=== PATIENT | male | born 1990 | race Caucasian/White ===

== ENCOUNTER 2017-12-31 15:04 | Outpatient (REF) | payer MEDICAID, SELFPAY ==
[2018-01-03 11:15] LABS: HIV-1/2 Ag & Ab Screen Negative (NEGAT)
[2018-01-03 12:12] LABS: Syphilis Serology (RPR) Negative (Negative)
[2018-01-03 15:16] LABS: Chlamydia Result Negative; GC Result Negative
== END 2017-12-31 15:24 ==
LOC: NCHCN 15:04
PROVIDERS: PCP Specialist/Technologist Athletic Trainer; Visit Provider Specialist/Technologist Athletic Trainer
DX: Z11.3 Encounter for screening for infections with a predominantly sexual mode of transmission (principal); Z11.4 Encounter for screening for human immunodeficiency virus [HIV]
CPT/HCPCS: 87389; 87491; 87591; 86592

== ENCOUNTER 2018-06-13 10:56 | Emergency (ER) | payer MEDICAID, SELFPAY ==
[2018-06-13 11:11] VITALS: BP 119/75; PULSE 72; RESP 16; TEMP 36.7; O2SAT 97
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
[2018-06-13] MEDS: Lactated Ringers 1,000 ML 1000 ML IV (12:05)
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
[2018-06-13 13:30] VITALS: BP 106/68; PULSE 60; RESP 16; TEMP 36.7; O2SAT 99
[2018-06-13 15:19] VITALS: RESP 16
== END 2018-06-13 13:34 | disposition home or self-care (01) ==
PROVIDERS: Emergency Provider Student in an Organized Health Care Education/Training Program; PCP Nurse Practitioner Family
DX: R07.9 Chest pain, unspecified (principal); R09.81 Nasal congestion
CPT/HCPCS: 36415; 93005; 96360; 99284; 71046; 71120; 93010

== ENCOUNTER 2018-10-31 00:58 | Outpatient (CLI) | payer MEDICAID, SELFPAY ==
--- NOTE | 2018-10-31 14:20 | DI.RAD_ITS ---
SYMPTOM/DIAGNOSIS: LOW BACK PAIN, M54.5 LUMBOSACRAL SPINE: Five views were obtained. The SI joints and visualized portions of the hip joints are unremarkable. There is no evidence of spondylolysis or spondylolisthesis. There are minimal hypertrophic degenerative changes of the facet joints throughout the lumbar region. No evidence of fracture. Intervertebral disc spaces are fairly well maintained. IMPRESSION: Minimal facet degenerative spurring, particularly at L 4-5 and L 5-S 1.
== END 2018-10-31 01:18 ==
PROVIDERS: PCP Nurse Practitioner Family; Visit Provider Nurse Practitioner Family
DX: M54.5 Low back pain (principal); M47.817 Spondylosis without myelopathy or radiculopathy, lumbosacral region
CPT/HCPCS: 72110

== ENCOUNTER 2019-11-06 14:51 | Outpatient (CLI) | payer MEDICAID, SELFPAY ==
--- NOTE | 2019-11-06 | DI.US_ITS ---
EXAM: US SCROTUM CLINICAL HISTORY: TESTICULAR PAIN LT, N50.812,PAIN DEVELOPING 5 DAYS AGO, PROGRESSIVELY WORSE TECHNIQUE: Ultrasound performed using standard protocol. COMPARISON: US SCROTUM US from 05/27/2015 FINDINGS: Scrotal ultrasound was performed according to the usual protocol. The testes show normal echotexture and normal vascular flow bilaterally with no evidence of mass. There is a 4.5 cm in greatest diameter left hydrocele. Right epididymis appears normal. Left epididymis is enlarged and shows increased vascularity compare d to the right, findings are suggestive of epididymitis. IMPRESSION: Findings suggestive of left epididymitis. No evidence of intra testicular process. DATA REPOSITORY:
== END 2019-11-06 15:11 ==
PROVIDERS: PCP Nurse Practitioner Family; Visit Provider Nurse Practitioner Family
DX: N45.1 Epididymitis (principal); N50.812 Left testicular pain
CPT/HCPCS: 76870

== ENCOUNTER 2020-05-13 04:39 | Emergency (ER) | payer MEDICAID, SELFPAY ==
[2020-05-13 04:47] VITALS: BP 149/89; PULSE 60; RESP 16; TEMP 36.1; O2SAT 97
[2020-05-13] MEDS: Meclizine 25 MG TAB PO (05:37)
[2020-05-13] MEDS: ACETAMINOPHEN 1,000 MG/100 ML BTL 400 MG IVPB (05:37)
[2020-05-13] MEDS: Ketorolac 30 MG/ML VIAL IVP (05:38)
[2020-05-13] MEDS: Prochlorperazine 10 MG/2 ML VIAL IVP (05:38)
[2020-05-13] MEDS: methylPREDNISolone SUCC 125 MG VIAL IVP (05:39)
[2020-05-13] MEDS: diphenhydrAMINE 50 MG/ML VIAL 25 MG IVP (05:39)
[2020-05-13] MEDS: Normal Saline 1,000 ML 1000 ML IV (05:39)
--- NOTE | 2020-05-13 05:54 | W.ED.GENAD ---
Discharge Plan Disposition Patient Disposition: HOME Condition: Good Discharge Details Clinical Impression: Vertigo, Migraines Primary Care Provider: Anum Perez ED Provider: Eze Krishnan Home Meds and New Rx's Prescriptions: New meclizine 25 mg tablet 25 mg PO TID Qty: 10 RF: 0 Continued magnesium oxide 400 MG tablet 400 mg PO DAILY RF: 0 hydrocortisone [Anti-Itch (HC)] 1 % cream 1 applic topical DAILY PRNRF: 0 naproxen 500 mg tablet 500 mg PO BID RF: 0 albuterol sulfate 8.5 GM HFA aerosol inhaler 8.5 g Inhalation Q4H PRN PRNRF: 0 Discharge Instructions Instructions: Vertigo (ED), Acute Headache (ED) Additional Instructions: At this time I suspect her symptoms were from a migraine and vertigo. Please take the meclizine as needed for your dizziness. Please drink plenty of fluids and get plenty of rest today. If you notice any worsening of your symptoms, or any new symptoms such as vomiting, diarrhea, fever, chills, shortness of breath, chest pain, numbness, weakness, or fainting , please return immediately to the emergency department for reevaluation. Please follow up with your primary care provider as soon as possible for reassessment and reevaluation. As always, it was a pleasure participating in your medical care today. Stand Alone Forms: Work Release Referrals: Anum Perez [Primary Care Provider] - Medical Decision Making 30-year-old male with past medical history of cognitive developmental delay, chronic migraines, oppositional defiant disorder, asthma, presents today for evaluation of headache and dizziness. Patient states that when he woke up early this morning for work at around 2:58 AM he noticed some mild room spinning dizziness, mild headache which she describes as pain all over, the mild feeling of unwellness. He denies thunderclap headache but does feel that the headache came on rather briskly. He has a history of headaches migraines and vertigo, he states that this feels similar severity in nature to his headaches, but the dizziness he is also experiencing feels similar to his previous vertigo. He denies any fever or chills. He denies any significant posterior neck pain. He denies any recent traumas. He has had a brain MRI recently in 2018 which was unremarkable. He has no other complaints at this time. No other modifying factors. He denies any tinnitus, or visual changes. His headache is made worse with loud high-pitched noises. Physical exam demonstrates no meningeal mass, normal neurologic exam with no deficits. Head impulse test did slightly worsen his dizziness, he does appear to be a small amount of horizontal nystagmus but no evidence of vertical or rotatory nystagmus at all. Symptoms at this time appear inconsistent with intercranial aneurysm or bleed. Instead they appear more concerning and consistent with complex migraine and vertigo. We will gently rehydrate, give migraine cocktail meclizine, monitor closely and reassess. Symptoms at this time are also inconsistent with cerebellar stroke based on clinical impression, hints exam and physical examination. 6:20 AM Laboratory work-up is returned and is normal. Patient has complete resolution of his symptoms after meclizine he had migraine cocktail. Patient feels well and would like to go home. Repeat neurologic exam is normal and unremarkable. Symptoms are inconsistent at this time with cerebellar stroke, meningitis, or acute life-threatening intracranial etiology. Symptoms appear clinically consistent with migraine and vertigo. 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 Patient will be discharged. Discussed red flags for which to return. I have extensively reviewed the treatment plan and discharge instructions with the patient. I have addressed all patient concerns at this time. The patient was made aware of what symptoms to monitor for that would warrant a return to the emergency department. Discussed the plan with the patient, they demonstrate verbal understanding and agreement with our assessment and plan at this time. The documentation in this chart was dictated using [employer] ([employer] dictation software. Please excuse any dictation errors. HPI General Date/Time Provider Initiated Documentation: 05/13/20 04:41. HPI Narrative: 30-year-old male with past medical history of cognitive developmental delay, chronic migraines, oppositional defiant disorder, asthma, presents today for evaluation of headache and dizziness. Patient states that when he woke up early this morning for work at around 2:58 AM he noticed some mild room spinning dizziness, mild headache which she describes as pain all over, the mild feeling of unwellness. He denies thunderclap headache but does feel that the headache came on rather briskly. He has a history of headaches migraines and vertigo, he states that this feels similar severity in nature to his headaches, but the dizziness he is also experiencing feels similar to his previous vertigo. He denies any fever or chills. He denies any significant posterior neck pain. He denies any recent traumas. He has had a brain MRI recently in 2018 which was unremarkable. He has no other complaints at this time. No other modifying factors. He denies any tinnitus, or visual changes. His headache is made worse with loud high-pitched noises. Related Data Home Medications Medication Instructions Recorded Confirmed albuterol sulfate 8.5 g INHALATION Q4H PRN PRN 02/22/14 05/13/20 magnesium oxide 400 mg PO DAILY 05/10/17 05/13/20 hydrocortisone 1 % topical cream 1 applic TOPICAL DAILY PRN g 11/23/19 05/13/20 naproxen 500 mg tablet 500 mg PO BID 11/23/19 05/13/20 meclizine 25 mg PO TID #10 tab 05/13/20 Previous Rx's Medication Instructions Recorded meclizine 25 mg PO TID #10 tab 05/13/20 Allergies Allergy/AdvReac Type Severity Reaction Status Date / Time tree and shrub pollen Allergy Intermediate HEADACHE Unverified 05/13/20 04:52 General Stated Complaint: Dizzy/Sync QUENTIN: 3 Review of Systems All systems reviewed & are unremarkable except as noted in HPI and below PFS Medical History (Updated 05/13/20 @ 06:10 by Eze Krishnan DO) Allergic rhinitis Asthma, mild intermittent, well-controlled Back pain Chronic headaches Closed lumbar vertebral fracture Cognitive developmental delay Heart burn Hemorrhoids Learning disability Mood disorder Olfactory hallucinations Oppositional disorder Social History Smoking/Tobacco Use Status: Never Smoking risk assessment performed?: Yes Alcohol Intake: never Drug use: Never Substance use type: does not use Do you feel safe at home: Yes Do you feel safe in your relationship?: Yes Exam Narrative Exam Narrative: 1.Const: Well-nourished, Well-developed, appearing stated age 2.Eyes: PERRL, no conjunctival injection, and symmetrical lids. 3.ENT: Atraumatic external nose and ears. Moist MM. Neck: Symmetric, trachea midline, No thyromegaly. Patient demonstrates good movement of cervical neck. There is no nuchal rigidity, no nuchal tenderness. Patient is able to flex the neck without any difficulty or significant pain. Negative Kernig's and Brudzinski sign. 4.CVS: +S1/S2, No murmurs or gallops. Peripheral pulses 2+ and equal in all extremities. Brisk capillary refill in all extremities. 5.RESP: Unlabored respiratory effort. Clear to auscultation bilaterally. No wheezes rales or rhonchi 6.GI: Soft, Nontender/Nondistended, No hepatosplenomegaly. No guarding or rebound. 7.MSK: Normocephalic/Atraumatic, Extremities w/o deformity or ttp No cyanosis or clubbing, Normal movement of all extremities 8.Skin: Warm, Dry. No rashes or lesions. 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 Sensation grossly intact, no focal neurologic deficits. All 6 cardinal planes of vision are fully intact. No evidence of rotatory or vertical nystagmus. The patient demonstrated a normal [id number], good dexterity. There was no evidence of dysdiadochokinesia. Patient was able to ambulate without difficulty. There was no wide-based gait. Romberg testing was normal. Xjnf-fh-[id number] testing was normal. Sensation was intact bilaterally as well as muscle strength bilaterally for all extremities. Patient was able to verbalize butter cup with no slurring, or miss pronunciation. Cerebellar function testing is normal. The patient demonstrates a normal hints exam with no findings concerning for a central event. No vertical nystagmus. The head impulse test is negative for any significant central abnormality. Normal test of skew. No suggestion of a central cerebellar event. 10.Psych: (AAO) x3. Appropriate mood and affect Course Vital Signs Vital signs: Vital Signs Temperature 36.1 C L 05/13/20 04:47 Pulse 60 05/13/20 04:47 Respiratory Rate 16 05/13/20 04:47 Blood Pressure 149/89 H 05/13/20 04:47 Pulse Oximetry 97 05/13/20 04:47 Temperature 36.1 C L 05/13/20 04:47 Temperature Source Tympanic 05/13/20 04:47 Pulse 60 05/13/20 04:47 Respiratory Rate 16 05/13/20 04:47 Blood Pressure 149/89 H 05/13/20 04:47 Pulse Oximetry 97 03/01/21 04:47 Pain Level 4 05/13/20 05:38
[2020-05-13 05:58] LABS: Abs Immature Grans 0.05 10^3/uL (0.0-0.06); Absolute Basophil Count 0.08 10^3/uL (0.0-0.2); Absolute Eosinophil Count 0.25 10^3/uL (0.0-0.7); Absolute Lymphocyte Count 3.73 10^3/uL (1.2-3.4); Absolute Monocyte Count 0.73 10^3/uL (0.1-0.8); Absolute Neutrophil Count 4.32 10^3/uL (1.2-6.7); Basophils % 0.9; Eosinophils % 2.7; HCT 44.6 % (40.0-50.0); HGB 14.8 g/dL (13.5-17.5); Immature Grans % 0.5; Lymphocytes % 40.7; MCH 29.2 pg (27.0-33.0); MCHC 33.2 % (32.0-36.0); MPV 9.5 fL (8.0-11.0); Neutrophils % 47.2; Nucleated RBC 0 %; Platelet Count 322 10^3/uL (130-400); RBC 5.07 10^6/uL (4.36-5.78); RDW 12.3 % (11.8-14.1); RDW-SD 39.6 fL; WBC 9.16 10^3/uL (4.4-10.8)
[2020-05-13 06:14] VITALS: RESP 18
[2020-05-13 06:15] LABS: ALT 48 U/L (16-63); AST 17 U/L (15-37); Albumin 3.9 g/dL (3.4-5.0); Alkaline Phosphatase 98 U/L (46-116); Anion Gap 7.4 mmol/L (3-11); BUN 13 mg/dL (7-18); Bilirubin, Total 0.4 mg/dL (0.2-1.0); CO2 27.6 mmol/L (21.0-32.0); CREATININE 0.9 mg/dL (0.70-1.30); Calcium 8.9 mg/dL (8.5-10.1); Chloride 103 mmol/L (98-107); Glucose 132 mg/dL (74-106); Potassium 3.9 mmol/L (3.5-5.1); Sodium 138 mmol/L (136-145); Total Protein 7.1 g/dL (6.4-8.2)
[2020-05-13 06:21] VITALS: BP 119/49; PULSE 68; RESP 18; TEMP 36.6; O2SAT 97
== END 2020-05-13 06:30 | disposition home or self-care (01) ==
PROVIDERS: Emergency Provider Student in an Organized Health Care Education/Training Program; PCP Nurse Practitioner Family
DX: R42 Dizziness and giddiness (principal); G43.809 Other migraine, not intractable, without status migrainosus
CPT/HCPCS: 36415; 80053; 96361; 96365; 96375; 99284; 85025; J0131; J0780; J1200; J1885; J2930

== ENCOUNTER 2021-08-26 16:04 | Outpatient (REF) | payer MEDICAID, SELFPAY ==
[2021-08-26 21:02] LABS: Uric Acid 5.7 mg/dL (3.5-7.2)
[2021-08-26 21:03] LABS: C-Reactive Protein < 0.05 mg/dL (0.0-0.3); HCT 44.6 % (40.0-50.0); HGB 14.8 g/dL (13.5-17.5); MCH 28.9 pg (27.0-33.0); MCHC 33.2 % (32.0-36.0); MCV 87 fL (80-95); MPV 10.1 fL (8.0-11.0); Platelet Count 333 10^3/uL (130-400); RBC 5.12 10^6/uL (4.36-5.78); RDW 12.4 % (11.8-14.1); WBC 9.57 10^3/uL (4.4-10.8)
[2021-08-26 21:08] LABS: ESR 2 mm/hr (0-15)
[2021-08-27 16:47] LABS: Rheumatoid Factor <8.6 IU/mL (<12.0)
[2021-08-28 09:26] LABS: Cyclic Citrullinated Peptide <2.5 U/mL (<5.0)
== END 2021-08-26 16:05 | disposition home or self-care (01) ==
LOC: NCHCN 16:04
PROVIDERS: PCP Nurse Practitioner Family; Visit Provider Nurse Practitioner Family
DX: M25.59 Pain in other specified joint (principal)
CPT/HCPCS: 85027; 85652; 86200; 84550; 86140; 86431

== ENCOUNTER 2021-09-10 14:06 | Outpatient (CLI) | payer MEDICAID, SELFPAY ==
--- NOTE | 2021-09-10 14:02 | DI.RAD_ITS ---
Exam(s) XR WRIST LT COMPLETE EXAM: XR WRIST LT COMPLETE CLINICAL HISTORY: left wrist pain TECHNIQUE: COMPARISON: No exams were available for comparison FINDINGS: Three views were obtained. Carpal alignment appears within normal limits. No bony or soft tissue ab normality seen. IMPRESSION: RADIATION DOSE DELIVERED: Total DLP
== END 2021-09-10 14:07 | disposition home or self-care (01) ==
LOC: DIORS 14:07
PROVIDERS: PCP Nurse Practitioner Family; Referring Provider Nurse Practitioner Family; Visit Provider Physician Assistant
DX: M25.532 Pain in left wrist (principal)
CPT/HCPCS: 73110

== ENCOUNTER → 2021-10-07 02:36 | Outpatient (CLI) | payer MEDICAID, SELFPAY ==
--- OUTSIDE RECORDS SUMMARY | 2021-10-02 00:43 | XMS_ITS | Encounter Summary ---
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 deviations of ?? 1. TOWRE raw score SS % ile Sight Word Efficiency 69 75 5 Phonemic Decoding Efficiency 41 84 14 Total Efficiency 159 75 5 raw score Z score %ile BNT 54 -.31 39 D-KEFS raw score ss %ile TRAIL MAKING Visual Scanning 25 8 25 Number Sequencing 45 6 25 Letter Sequencing 27 11 63 Number-Letter Switching 114 4 2 Motor Speed 26 11 63 VERBAL FLUENCY Letter Fluency 43 13 84 Category Fluency 40 11 63 Category Switching 12 9 37 Category Switching Accuracy 10 9 37 CPT raw score Z-score %ile K hit rate .73 -4.17 <1 Commission 11.00 -.98 18 Average reaction time (RT) 420.53 .08 53 Variability of RT 115.31 -1.34 10 AK hit rate .64 -6.60 <1 Commission 43.00 -2.36 1 Average reaction time (RT) 360.59 -.75 23 Variability of RT 158.35 -1.66 5 WCST raw score SS %ile Categories 6 - >16 Error percent 13 117 87 Perseverative error percent 6 125 95 Loss of set 2 - CVLT-II raw score Z-score %ile Total Acquisition 28 T = 23 <1 Trial 1 5 -1.00 16 Trial 2 5 - - Trial 3 7 - - Trial 4 4 - - Trial 5 7 -3.00 <1 Primacy 36 1.00 84 Middle 29 -2.50 1 Recency 36 2.00 98 Semantic Clustering .10 -.50 32 Serial Clustering .10 -.50 32 Distractor List 5 -1.00 16 Short Delay Free Recall 3 -3.50 <1 Short Delay Cued Recall 5 -4.00 <1 Long Delay Free Recall 3 -3.50 <1 Long Delay Cued Recall 3 -4.00 <1 Recognition 6 -5.00 <1 Discriminability .20 -5.00 <1 Note: CVLT-C Z-scores of +/-1.5 or less are considered clinically significant WMS-IV Logical Memory raw score T-score %ile Immediate 28 11 63 Delayed 23 10 50 Recognition 25 - 26-50 TOMAL raw score ss %ile Memory for Location 3 3 1 Abstract Visual Memory 18 7 16 raw score Z-score %ile GROOVED PEGBOARD Dominant hand 90 -2.30 1 Non-Dominant hand 93 -2.03 2 FINGER TAPPING Dominant hand 43.10 -1.31 10 Non-Dominant hand 39.40 -1.24 12 VMI-5 raw score SS %ile VMI 22 74 5 Visual 26 85 14 BDI Raw score T score Description Total 12 - Minimal MASC Raw score T score Description Total 41 52 Within normal limits Physical Symptoms Total 10 50 Within normal limits Tense/Restless 6 52 Within normal limits Somatic/Autonomic 4 48 Within normal limits Harm Avoidance Total 22 63 Elevated Perfectionism 10 60 Within normal limits Anxious Coping 12 62 Elevated Social Anxiety Total 5 45 Within normal limits Humiliation/Rejection 3 46 Within normal limits Performance Fears 2 43 Within normal limits Separation/Panic 4 50 Within normal limits Anxiety Disorder Index 15 59 Within normal limits ABAS-II SS %tile General Adaptive Composite - - Conceptual 61 <1 Social - - Practical 61 <1 ABAS-II raw scores scaled score %tile Communication 42 3 1 Community Use 36 4 2 Functional Academics 42 3 1 Home Living 29 3 1 Health and Safety 36 3 1 Leisure 27 2 <1 Self-Care 50 3 1 Self-Direction 27 3 1 Social - - - documented in this encounter Plan of Treatment Not on filedocumented as of this encounter Visit Diagnoses Diagnosis Post traumatic stress disorder - Primary Posttraumatic stress disorder documented in this encounter Care Teams Dock Associate Relationship Specialty Start Date End Date Bharath Manzano MD PCP - General 02/04/10 02/05/[address] [address] documented as of this encounter
--- OUTSIDE RECORDS SUMMARY | 2021-10-02 00:43 | XMS_ITS | Clinical Summary ---
:1990 Author Organization [facility] Address [address] [place] [address] Care Team Providers Name Role Phone Unavailable Primary Care Provider Unavailable Encounters Date Type Specialty Care Team Description 08/27/2021 Lab Requisition Clinical Laboratory Outr Resulting Lab , Provider from Last 3 Months Immunizations Name Administration Dates Next Due Covid-19 mRNA Vaccine (Ooshot COVID-19) PF 0.3 ml IM 021, 07/25/2020 (12 yrs+) Social History Tobacco Use Types Packs/Day Years Used Date Never Assessed Sex Assigned at Date Recorded Not on file Plan of Treatment Health Maintenance Due Date Last Done Comments Hepatitis C Screen 1990 COVID-19 Vaccine Completed 08/15/2020, 07/25/2020 Procedures Procedure Name Priority Date/Time Associated Diagnosis Comme nts RHEUMATOID FACTOR Routine 08/26/2021 15:55 Result s for this EDT procedure are i n the results section. CCP ANTIBODIES Routine 08/26/2021 15:55 Results f or this EDT procedure are i n the results section. from Last 3 Months Results CCP ANTIBODIES (08/26/2021 15:55 EDT) Pathologist Sig nature CCP Antibodies <2.5 <5.0 U/mL [facility] Specimen Blood - Venous blood (substance) Performing Organization Address [facility]/ZIP Code Phon e Number [facility] [address] [place] [address] SERVICES RHEUMATOID FACTOR (08/26/2021 15:55 EDT) Pathologist Sig nature Rheumatoid Factor <8.6 <12.0 IU/mL [facility] Specimen Blood - Venous blood (substance) Performing Organization Address [facility] Phon e Number [facility] [address] [place] [address] SERVICES from Last 3 Months
--- OUTSIDE RECORDS SUMMARY | 2021-10-02 00:43 | XMS_ITS | Clinical Summary ---
:1990 Author Organization [facility] [place] [address] [place] [address] Care Team Providers Name Role Phone Anum Perez APRN Primary Care Provider Allergies No known active allergies Medications Medication Sig Dispensed Refills Start Date End Date Status albuterol (PROVENTIL Inhale 2 puffs 0 Active HFA;VENTOLIN HFA) 90 into the lungs mcg/Actuation inhaler every 4 hours as needed. Use with spacer hydrocortisone 1 % KAILA ON THE AREA 0 02/01/2020 Active Cream SURROUNDING THE ANUS ONCE DAILY FOR 14 DAYS naproxen (NAPROSYN) TK 1 T PO BID WF 0 11/06/2019 Active 500 mg Tablet PRF PAIN Active Problems Problem Noted Date Asperger's disorder 11/26/2010 ADHD (attention deficit hyperactivity disorder) 2010 PTSD (post-traumatic stress disorder) 11/26/2010 Social History Tobacco Use Types Packs/Day Years Used Date Never Smoker Smokeless Tobacco: Never Used Sex Assigned at Date Recorded Not on file Last Filed Vital Signs Vital Sign Reading Time Taken Comments Blood Pressure 144/75 02/19/2020 2:54 PM EST Pulse 62 02/26/2020 9:15 AM EST Temperature 36.5 ??C (97.7 ??F) 02/26/2020 9:15 AM EST Respiratory Rate 20 02/26/2020 9:15 AM EST Oxygen Saturation 97% 02/26/2020 9:15 AM EST Inhaled Oxygen Concentration - - Weight 110.2 kg (243 lb) 02/26/2020 9:15 AM EST Height 171.8 cm (5' 7.64) 02/26/2020 9:15 AM EST Body Mass Index 37.34 02/26/2020 9:15 AM EST Plan of Treatment Health Maintenance Due Date Last Done Comments Covid-19 Vaccine (#1) 1997 HIV screen 2010 Hepatitis C Screening 2010 Lipid Screening 2010 Tdap adult 2011 Tetanus vaccine 2011 Influenza (Flu) vaccine (1 of - Influenza standard 11/13/2021 series) Insurance Payer Benefit Plan / Subscriber ID Effective Dates Phone Addre ss Type Group [place] [id number] 2020-Pres [phone] [address] [place] [address] Care Teams Tattooer Relationship Specialty Start Date End Date Anum Perez, SAFETY AND SECURITY MANAGER PCP - General Family Medicine 02/06/20 [address] [place], [place] [address]
--- OUTSIDE RECORDS SUMMARY | 2021-10-02 00:43 | XMS_ITS | Encounter Summary ---
:1990 Author Organization [facility] Address [address] [place] [address] Care Team Providers Name Role Phone Unavailable Primary Care Provider Unavailable Encounter Details Date Type Department Care Team Description 07/25/2020 Immunization [facility] [place] [address] [place], [place] [address] Social History Tobacco Use Types Packs/Day Years Used Date Never Assessed Sex Assigned at Date Recorded Not on file documented as of this encounter Plan of Treatment Not on filedocumented as of this encounter Visit Diagnoses Not on filedocumented in this encounter Orders Immunization/Injection Count Last Ordered Date First O rdered Date COVID-19 MRNA VACCINE (PFIZER COVID-19) PF 1 07/25 0.3 ML IM (16 YRS+) documented in this encounter
--- OUTSIDE RECORDS SUMMARY | 2021-10-02 00:43 | XMS_ITS | Encounter Summary ---
:1990 Author Organization [facility] [place] [address] Care Team Providers Name Role Phone Bharath Manzano MD Primary Care Provider Encounter Details Date Type Department Care Team Description 10/31/2018 Ancillary Procedure Radiology Library at Phillip Perez APRN [facility] [address] [phone] (Wo rk) Social History Tobacco Use Types Packs/Day Years Used Date Never Smoker Sex Assigned at Date Recorded Not on file documented as of this encounter Plan of Treatment Not on filedocumented as of this encounter Procedures Procedure Name Priority Date/Time Associated Diagnosis Comme nts FILM LIBRARY Routine 10/31/2018 12:00 AM Results for this STORAGE ONLY DX EDT procedure ar e in SPINE the results section. documented in this encounter Results Film Library- Storage Only DX Spine (10/31/2018 12:00 AM EDT) Specimen (Source) Anatomical Location Collection Method / Collectio n Time Received Time / Laterality Volume Narrative [facility] - 02/07/2020 9:26 AM EST This exam is auto-finalizing. It's purpo se is for storage only. Anum Perez APRN IMG FILM LIBRARY ORDERABLES Performing Organization Address City/State/ZIP Code Phon e Number [place], [place] documented in this encounter Visit Diagnoses Not on filedocumented in this encounter Care Teams Stenocaptioner Relationship Specialty Start Date End Date Bharath Manzano MD PCP - General 02/04/10 02/05/20 [address] [place] [address] documented as of this encounter
--- OUTSIDE RECORDS SUMMARY | 2021-10-02 00:43 | XMS_ITS | Encounter Summary ---
:1990 Author Organization [facility] [place] [address] Care Team Providers Name Role Phone Bharath Manzano MD Primary Care Provider Encounter Details Date Type Department Care Team Description 06/13/2018 Ancillary Procedure Radiology Library at Phillip Perez APRN [facility] [address] [address] [phone] (Wo rk) Social History Tobacco Use Types Packs/Day Years Used Date Never Smoker Sex Assigned at Date Recorded Not on file documented as of this encounter Plan of Treatment Not on filedocumented as of this encounter Procedures Procedure Name Priority Date/Time Associated Diagnosis Comme nts FILM LIBRARY Routine 06/13/2018 12:00 AM Results for this STORAGE ONLY DX EDT procedure ar e in CHEST the results section. documented in this encounter Results Film Library- Storage Only DX Chest (06/13/2018 12:00 AM EDT) Specimen (Source) Anatomical Location Collection Method / Collectio n Time Received Time / Laterality Volume Narrative [facility] - 02/07/2020 9:23 AM EST This exam is auto-finalizing. It's purpo se is for storage only. Anum Perez APRN IMG FILM LIBRARY ORDERABLES Performing Organization Address City/State/ZIP Code Phon e Number [place], [place] documented in this encounter Visit Diagnoses Not on filedocumented in this encounter Care Teams Cost Recorder Relationship Specialty Start Date End Date Bhraath Manzano MD PCP - General 02/04/10 02/05/20 [address] [place] [address] documented as of this encounter
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
--- OUTSIDE RECORDS SUMMARY | 2021-10-02 00:43 | XMS_ITS | Encounter Summary ---
:1990 Author Organization [facility] Address [address] [place] [address] Care Team Providers Name Role Phone Unavailable Primary Care Provider Unavailable Encounter Details Date Type Department Care Team Description 08/27/2021 Lab Requisition [facility] Outr Resulting Lab, Pathology & Laboratory Provider [facility] [address] [place] [address] Social History Tobacco Use Types Packs/Day Years Used Date Never Assessed Sex Assigned at Date Recorded Not on file documented as of this encounter Plan of Treatment Not on filedocumented as of this encounter Procedures Procedure Name Priority Date/Time Associated Diagnosis Comme nts CCP ANTIBODIES Routine 08/26/2021 15:55 Results f or this EDT procedure are i n the results section. RHEUMATOID FACTOR Routine 08/26/2021 15:55 Result s for this EDT procedure are i n the results section. documented in this encounter Results RHEUMATOID FACTOR (08/26/2021 15:55 EDT) Pathologist Sig nature Rheumatoid Factor <8.6 <12.0 IU/mL [facility] Specimen Blood - Venous blood (substance) Performing Organization Address City/[facility]/ZIP Code Phon e Number [facility] [address] [place] [address] SERVICES CCP ANTIBODIES (08/26/2021 15:55 EDT) Pathologist Sig nature CCP Antibodies <2.5 <5.0 U/mL [facility] Specimen Blood - Venous blood (substance) Performing Organization Address City/[facility]/ZIP Code Phon e Number [facility] [address] [place] [address] SERVICES documented in this encounter Visit Diagnoses Not on filedocumented in this encounter
--- OUTSIDE RECORDS SUMMARY | 2021-10-02 00:43 | XMS_ITS | Encounter Summary ---
:1990 [place] [address] Care Team Providers Name Role Phone Anum Perez APRN Primary Care Provider Encounter Details Date Type Department Care Team Description 02/23/2020 Telephone Thoracic Surgery at [facility] [place] [address] Social History Tobacco Use Types Packs/Day Years Used Date Never Smoker Smokeless Tobacco: Never Used Sex Assigned at Date Recorded Not on file documented as of this encounter Miscellaneous Notes Telephone Encounter - Kaelyn Tinoco LNA - 02/23/2020 12:55 PM EST Request faxed to [facility] to have them push recent ct imaging documented in this encounter Plan of Treatment Not on filedocumented as of this encounter Visit Diagnoses Not on filedocumented in this encounter Care Teams Food Service Sales Representatives Relationship Specialty Start Date End Date Anum Perez APRN PCP - General Family Medicine 02/06/20 [address] [place] [address] documented as of this encounter
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
--- NOTE | 2021-10-07 | DI.RAD_ITS ---
Exam(s) XR KNEE LT 3V AP,LAT,EDWAR EXAM: XR KNEE LT 3V AP,LAT,EDWAR CLINICAL HISTORY: BILAT KNEE PAIN, M25.569,LEGS GIVING OUT, ? OA. TECHNIQUE: 2D digital imaging was performed of the left knee. Three images were obtained. AP, late ral and PA tunnel views were obtained. COMPARISON: No priors for comparison. FINDINGS: BONES: No acute fracture is present. No bony destructive lesion is seen. JOINTS: The knee is normally aligned. No joint effusion is seen. SOFT TISSUE: Normal. IMPRESSION: Normal radiographs of the left knee. DATA REPOSITORY: RADIATION DOSE DELIVERED:
--- NOTE | 2021-10-07 | DI.RAD_ITS ---
Exam(s) XR KNEE RT 3V AP,LAT,EDWAR EXAM: XR KNEE RT 3V AP,LAT,EDWAR CLINICAL HISTORY: BILAT KNEE PAIN, M25.569,LEGS GIVING OUT, ? OA. TECHNIQUE: 2D digital imaging was performed of the right knee. Four views obtained. AP, lateral and PA tunnel views were obtained. COMPARISON: No priors for comparison. FINDINGS: BONES: No acute fracture is present. No bony destructive lesion is seen. JOINTS: The knee is normally aligned. No joint effusion is seen. SOFT TISSUE: Normal. IMPRESSION: Unremarkable radiographs of the right knee. DATA REPOSITORY: RADIATION DOSE DELIVERED:
== END ==
PROVIDERS: PCP Nurse Practitioner Family; Visit Provider Nurse Practitioner Family
DX: M25.561 Pain in right knee (principal); M25.562 Pain in left knee
CPT/HCPCS: 73562

== ENCOUNTER → 2021-12-01 02:12 | Outpatient (CLI) | payer MEDICAID, SELFPAY ==
--- NOTE | 2021-12-01 07:53 | DI.MRI_ITS ---
Exam(s) MR UPPER JOINT LT WO EXAM: MR UPPER JOINT LT WO CLINICAL HISTORY: lt wrist PAIN, LIMITED MOTION,m25.532. TECHNIQUE: Multiplanar multisequence MRI was performed. COMPARISON: None. FINDINGS: BONES: There is no fracture or contusion pattern. A 5 millimeter cyst is seen at the lateral aspect o f the lunate near the scapholunate joint. JOINTS: The radiocarpal joint is unremarkable. The carpal joints are unremarkable. TENDONS: Flexors: Unremarkable. Extensors: Unremarkable. MUSCLES: Unremarkable. MEDIAN NERVE: Unremarkable on this noncontrast examination. SOFT TISSUES: A small loculated fluid collection which may represent a small synovial cyst versus vanessa glion is noted posterior to the lunate, at the lunate capitate joint. It measures 9 by 3 x 11 millim eters.. TRIANGULAR FIBROCARTILAGE: Unremarkable. IMPRESSION: 5 millimeter cyst in the lateral aspect of the lunate. Small synovial cyst or ganglion posterior to the lunate. DATA REPOSITORY:
== END ==
PROVIDERS: PCP Nurse Practitioner Family; Visit Provider Student in an Organized Health Care Education/Training Program
DX: M25.532 Pain in left wrist (principal); M71.332 Other bursal cyst, left wrist
CPT/HCPCS: 73221

== ENCOUNTER 2022-01-13 15:55 | Outpatient (REF) | payer MEDICAID, SELFPAY ==
--- OUTSIDE RECORDS SUMMARY | 2022-01-13 15:57 | XMS_ITS | Clinical Summary ---
:1990 Author Organization [facility] Address [address] [place] [address] Care Team Providers Name Role Phone Unavailable Primary Care Provider Unavailable Immunizations Name Administration Dates Next Due Covid-19 mRNA Vaccine ([employer] COVID-19) PF 0.3 ml IM 021, 07/25/2020 (12 yrs+) Social History Tobacco Use Types Packs/Day Years Used Date Never Assessed Sex Assigned at Date Recorded Not on file Plan of Treatment Health Maintenance Due Date Last Done Comments Hepatitis C Screen 1990 COVID-19 Vaccine Completed 08/15/2020, 07/25/2020
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
--- OUTSIDE RECORDS SUMMARY | 2022-01-13 15:57 | XMS_ITS | Encounter Summary ---
:1990 [place] [address] Care Team Providers Name Role Phone Anum Perez APRN Primary Care Provider Encounter Details Date Type Department Care Team Description 12/01/2021 Ancillary Procedure Radiology Library at Eran Schmid MD [facility] [place] [address] [place] [address] [phone] (Wo rk) Social History Tobacco Use Types Packs/Day Years Used Date Never Smoker Smokeless Tobacco: Never Used Sex Assigned at Date Recorded Not on file documented as of this encounter Plan of Treatment Upcoming Encounters Date Type Specialty Care Team Description 01/20/2022 Office Visit Orthopaedics Eran Schmid MD [facility] ORTHOPAEDIC SURG [place], [place] [address] (Wo rk) documented as of this encounter Procedures Procedure Name Priority Date/Time Associated Diagnosis Comme nts FILM LIBRARY Routine 12/01/2021 12:00 AM Results for this STORAGE ONLY MR EDT procedure ar e in WRIST the results section. documented in this encounter Results Film Library- Storage Only MR Wrist (12/01/2021 12:00 AM EDT) Specimen (Source) Anatomical Location Collection Method / Collectio n Time Received Time / Laterality Volume Narrative NIKKI - 01/07/2022 3:45 PM EDT This exam is auto-finalizing. It's purpo se is for storage only. Eran Schmid MD IMG FILM LIBRARY ORDERABLES Performing Organization Address City/State/ZIP Code Phon e Number [facility] [place], [place] documented in this encounter Visit Diagnoses Not on filedocumented in this encounter Care Teams Special Procedures Technologist Relationship Specialty Start Date End Date Anum Perez APRN PCP - General Family Medicine 02/06/20 [address] [place] [address] documented as of this encounter
--- OUTSIDE RECORDS SUMMARY | 2022-01-13 15:57 | XMS_ITS | Encounter Summary ---
:1990 Author Organization [facility] [place] [address] Care Team Providers Name Role Phone Anum Perez APRN Primary Care Provider Reason for Visit Reason Comments Follow-up Encounter Details Date Type Department Care Team Description 02/26/2020 Office Visit Thoracic Surgery at [facility] chest pain [facility] Chris Alfred MD [facility] [address] [place], [place] THORACIC SURGERY [id number] [place] [address] [phone] Social History Tobacco Use Types Packs/Day Years [...] Outpatient Consultation Note MD Christopher Carrillo PA-C [place], [place] [address] Today, 02/26/2020, we saw Mr. Da Lewis in follow-up regarding sternal pain. He was last seen on 02/19/2020 and at that time plan was to obtain CT Chest I-, obtain records from [facility] in 2019, try taking NSAIDs and acetaminophen, [...] bilaterally. Tenderness to palpation of sternum approximate residential down. His heart has a regular rate [...] of Management: 1. Will obtain records from [facility] in 2019 for comparison 2. Continue to [...] any time DAIN Haley 02/26/2020 Thoracic Surgery [facility] Chris Rudolph MD - 02/26/2020 9:30 AM [...] 01/20/2022 Office Visit Orthopaedics Eran Schmid MD [facility] [address] ORTHOPAEDIC SURG [place], [place] [address] (Wo rk) documented as of this encounter Visit Diagnoses Diagnosis Mid sternal chest pain Precordial pain documented in this encounter Care Teams Business Continuity Strategy Director Relationship Specialty Start Date End Date Anum Perez, SPECIAL PROGRAMS DIRECTOR PCP - General Family Medicine 02/06/20 [address] [place] [address] documented as of this encounter
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
--- OUTSIDE RECORDS SUMMARY | 2022-01-13 15:57 | XMS_ITS | Encounter Summary ---
:1990 [place] [address] Care Team Providers Name Role Phone Bharath Manzano MD Primary Care Provider Encounter Details Date Type Department Care Team Description 10/31/2018 Ancillary Procedure Radiology Library at Phillip Perez APRN [place] [address] [address] [address] [phone] (Wo rk) Social History Tobacco Use Types Packs/Day Years Used Date Never Smoker Sex Assigned at Date Recorded Not on file documented as of this encounter Plan of Treatment Upcoming Encounters Date Type Specialty Care Team Description 01/20/2022 Office Visit Orthopaedics Eran Schmid MD [facility] DR ORTHOPAEDIC SURG [place], [place] [address] (Wo rk) documented as of [...] Time Received Time / Laterality Volume Narrative [facility] - 02/07/2020 9:26 AM EST This exam is auto-finalizing. It's purpo se is for storage only. Anum Perez APRN IMG FILM LIBRARY ORDERABLES Performing Organization Address City/State/ZIP Code Phon e Number [place], [place] documented in this encounter Visit Diagnoses Not on filedocumented in this encounter Care Teams Extension Professor Relationship Specialty Start Date End Date Bharath Manzano MD PCP - General 02/04/10 02/05/20 [address] [place] [address] documented as of this encounter
--- OUTSIDE RECORDS SUMMARY | 2022-01-13 15:57 | XMS_ITS | Encounter Summary ---
:1990 [place] [address] Care Team Providers Name Role Phone Bharath Manzano MD Primary Care Provider Encounter Details Date Type Department Care Team Description 04/12/2017 Ancillary Procedure Radiology Library at Phillip Rudolph MD [facility] [place] [address] THORACIC SURGERY [phone] [place], [place] [address] (Wo rk) Social History Tobacco Use Types Packs/Day Years Used Date Never Smoker Sex Assigned at Date Recorded Not on file documented as of this encounter Plan of Treatment Upcoming Encounters Date Type Specialty Care Team Description 01/20/2022 Office Visit Orthopaedics Eran Schmid MD [facility] DR ORTHOPAEDIC SURG [place], [place] [address] (Wo rk) documented as of this encounter Procedures Procedure Name Priority Date/Time Associated Diagnosis Comme nts FILM LIBRARY Routine 04/12/2017 12:00 AM Results for this STORAGE ONLY MR EST procedure ar e in HEAD the results section. documented in this encounter Results Film Library- Storage Only MR Head (04/12/2017 12:00 AM EST) Specimen (Source) Anatomical Location Collection Method / Collectio n Time Received Time / Laterality Volume Narrative A[facility]AN JORDAN - 02/23/2020 7:24 PM EST This exam is auto-finalizing. It's purpo se is for storage only. Chris Rudolph MD [facility] FILM LIBRARY ORDERABLES Performing Organization Address City/State/ZIP Code Phon e Number [facility] [place], [place] documented in this encounter Visit Diagnoses Not on filedocumented in this encounter Care Teams Ladle Pourer Relationship Specialty Start Date End Date Bharath Manzano MD PCP - General 02/04/10 02/05/20 [address] [place] [address] documented as of this encounter
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
--- OUTSIDE RECORDS SUMMARY | 2022-01-13 15:57 | XMS_ITS | Encounter Summary ---
:1990 Author Organization [facility] Address [address] [place] [address] Care Team Providers Name Role Phone Unavailable Primary Care Provider Unavailable Encounter Details Date Type Department Care Team Description 07/25/2020 Immunization [facility] [address] [place], [place] [address] Social History Tobacco Use [...]
--- OUTSIDE RECORDS SUMMARY | 2022-01-13 15:57 | XMS_ITS | Encounter Summary ---
:1990 [place] [address] Care Team Providers Name Role Phone Bharath Manzano MD Primary Care Provider Encounter Details Date Type Department Care Team Description 06/13/2018 Ancillary Procedure Radiology Library at Phillip Perez APRN [place] [address] [address] [address] [phone] (Wo rk) Social History Tobacco Use Types Packs/Day Years Used Date Never Smoker Sex Assigned at Date Recorded Not on file documented as of this encounter Plan of Treatment Upcoming Encounters Date Type Specialty Care Team Description 01/20/2022 Office Visit Orthopaedics Eran Schmid MD [facility] DR ORTHOPAEDIC SURG [place], [place] [address] (Wo rk) documented as of [...] Time Received Time / Laterality Volume Narrative [facility] - 02/07/2020 9:23 AM EST This exam is auto-finalizing. It's purpo se is for storage only. Anum Perez APRN IMG FILM LIBRARY ORDERABLES Performing Organization Address City/State/ZIP Code Phon e Number [place], [place] documented in this encounter Visit Diagnoses Not on filedocumented in this encounter Care Teams Filament Maker Relationship Specialty Start Date End Date Bharath Manzano MD PCP - General 02/04/10 02/05/20 [address] [place] [address] documented as of this encounter
--- OUTSIDE RECORDS SUMMARY | 2022-01-13 15:57 | XMS_ITS | Encounter Summary ---
:1990 [place] [address] Care Team Providers Name Role Phone Anum Perez APRN Primary Care Provider Encounter Details Date Type Department Care Team Description 09/10/2021 Ancillary Procedure Radiology Library at Eran Schmid MD [facility] [place] [address] [place] [address] [phone] (Wo rk) Social History Tobacco Use Types Packs/Day Years Used Date Never Smoker Smokeless Tobacco: Never Used Sex Assigned at Date Recorded Not on file documented as of this encounter Plan of Treatment Upcoming Encounters Date Type Specialty Care Team Description 01/20/2022 Office Visit Orthopaedics Eran Schmid MD [facility] ORTHOPAEDIC SURG [place], [place] [address] (Wo rk) documented as of this encounter Procedures Procedure Name Priority Date/Time Associated Diagnosis Comme nts FILM LIBRARY Routine 09/10/2021 12:00 AM Results for this STORAGE ONLY DX EDT procedure ar e in WRIST the results section. documented in this encounter Results Film Library- Storage Only DX Wrist (09/10/2021 12:00 AM EDT) Specimen (Source) Anatomical Location Collection Method / Collectio n Time Received Time / Laterality Volume Narrative NIKKI - 01/07/2022 3:45 PM EDT This exam is auto-finalizing. It's purpo se is for storage only. Eran Schmid MD IMG FILM LIBRARY ORDERABLES Performing Organization Address City/State/ZIP Code Phon e Number [facility] [place], [place] documented in this encounter Visit Diagnoses Not on filedocumented in this encounter Care Teams Prepared Foods Supervisor Relationship Specialty Start Date End Date Anum Perez APRN PCP - General Family Medicine 02/06/20 [address] [place] [address] documented as of this encounter
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
--- OUTSIDE RECORDS SUMMARY | 2022-01-13 15:57 | XMS_ITS | Encounter Summary ---
:1990 Author Organization [place] [address] Care Team Providers Name Role Phone Anum Perez APRN Primary Care Provider Reason for Referral Diagnostic Test (Routine) - Closed Specialty Diagnoses / Procedures Referred By Contact Refer red To Contact Radiology Diagnoses Other chest pain Chris Rudolph [facility] Rad Ct Scan Procedures CT Chest wo Contrast (Generic) [place] [address] [place] [address] Referral ID Status Reason Start Date Expiration Date Visits V isits Requested Authorized [id number] Closed Specialty 02/19/2020 08/19/2021 1 1 Service Requested Reason for Visit Diagnostic Test (Routine) - Closed Specialty Diagnoses / Procedures Referred By Contact Refer red To Contact Radiology Diagnoses Other chest pain Chris Rudolph [facility] Rad Ct Scan Procedures CT Chest wo Contrast (Generic) [place] [address] [place] [address] Referral ID Status Reason Start Date Expiration Date Visits V isits Requested Authorized [id number] Closed Specialty 02/19/2020 08/19/2021 1 1 Service Requested Encounter Details Date Type Department Care Team Description 02/26/[address] Scan at [facility] Ronni, Other chest pain [facility] Chris Alfred MD [facility] [address] THORACIC SURGERY [phone] [place], [place] [address] Social History Tobacco Use Types Packs/Day Years Used Date Never Smoker Smokeless Tobacco: Never Used Sex Assigned at Date Recorded Not on file documented as of this encounter Medications at Time of Discharge Medication Sig Dispensed Refills Start Date End Date hydrocortisone 1 % Cream KAILA ON THE AREA 0 2019 SURROUNDING THE ANUS ONCE DAILY FOR 14 DAYS naproxen (NAPROSYN) 500 TK 1 T PO BID WF PRF 0 mg Tablet PAIN albuterol (PROVENTIL Inhale 2 puffs into 0 HFA;VENTOLIN HFA) 90 the lungs every 4 mcg/Actuation inhaler hours as needed. Use with spacer documented as of this encounter Plan of Treatment Upcoming Encounters Date Type Specialty Care Team Description 01/20/2022 Office Visit Orthopaedics Eran Schmid MD [facility] DR ORTHOPAEDIC SURG [place], [place] [address] (Wo rk) documented as of this encounter Procedures Procedure Name Priority Date/Time Associated Diagnosis Comme nts CT CHEST WO Routine 02/26/2020 8:46 AM Other chest pain Resul ts for this CONTRAST (GENERIC) EST procedure are in the results section. documented in this encounter Results CT Chest wo Contrast [...] ? Electronically signed by: Sakina Mills MD, [facility] ([phone]), at 02/26/2020 9:27 AM Narrative 02/26/2020 9:27 [...] encounter Visit Diagnoses Diagnosis Other chest pain documented in this encounter Care Teams Manager Drilling Relationship Specialty Start Date End Date Anum Perez, SABAS PCP - General Family Medicine 02/06/20 [address] [place] [address] documented as of this encounter
--- OUTSIDE RECORDS SUMMARY | 2022-01-13 15:57 | XMS_ITS | Encounter Summary ---
:1990 Author Organization [facility] Address [address] [place] [address] Care Team Providers Name Role Phone Unavailable Primary Care Provider Unavailable Encounter Details Date Type Department Care Team Description 08/27/2021 Lab Requisition [place] Outr Resulting Lab, Pathology & Laboratory Provider [facility] [address] [place] [address] Social History Tobacco Use Types Packs/Day Years [...] Sig nature Rheumatoid Factor <8.6 <12.0 IU/mL [facility] Specimen Blood - Venous blood (substance) Performing Organization Address City/[facility]/ZIP Code Phon e Number [facility] [address] [place] [address] SERVICES CCP ANTIBODIES (08/26/2021 15:55 EDT) Pathologist Sig nature CCP Antibodies <2.5 <5.0 U/mL [facility] ORY [facility] Specimen Blood - Venous blood (substance) Performing Organization Address City/[facility]/ZIP Code Phon e Number [facility] [address] [place] [address] SERVICES documented in this encounter Visit Diagnoses Not on filedocumented in this encounter
--- OUTSIDE RECORDS SUMMARY | 2022-01-13 15:57 | XMS_ITS | Encounter Summary ---
:1990 [place] [address] Care Team Providers Name Role Phone Anum Perez APRN Primary Care Provider Encounter Details Date Type Department Care Team Description 02/23/2020 Telephone Thoracic Surgery at [facility] [place] [address] Social History Tobacco Use Types Packs/Day Years Used Date Never Smoker Smokeless Tobacco: Never Used Sex Assigned at Date Recorded Not on file documented as of this encounter Miscellaneous Notes Telephone Encounter - Kaelyn Tinoco LNA - 02/23/2020 12:55 PM EST Request faxed to [facility] to have them push recent ct imaging documented in this encounter Plan of Treatment Upcoming Encounters Date Type Specialty Care Team Description 01/20/2022 Office Visit Orthopaedics Eran Schmid MD [facility] DR ORTHOPAEDIC SURG [place], [place] [address] (Wo rk) documented as of this encounter Visit Diagnoses Not on filedocumented in this encounter Care Teams Rock Picker Relationship Specialty Start Date End Date Anum Perez APRN PCP - General Family Medicine 02/06/20 [address] [place] [address] documented as of this encounter
[2022-01-13 20:44] LABS: TSH 0.94 uIU/mL (0.36-3.74); Vitamin B12 453 pg/mL (193-986)
== END 2022-01-13 15:56 | disposition home or self-care (01) ==
LOC: NCHCN 15:55
PROVIDERS: PCP Nurse Practitioner Family; Visit Provider Nurse Practitioner Family
DX: F03.90 Unspecified dementia, unspecified severity, without behavioral disturbance, psychotic disturbance, mood disturbance, and anxiety (principal)
CPT/HCPCS: 82607; 84443

== ENCOUNTER 2023-03-05 03:30 | Outpatient (CLI) | payer MEDICAID, SELFPAY ==
[2023-03-05] MEDS: Levalbuterol HFA 15 GM INH 4 PUFF IH (11:33)
[2023-03-05] MEDS: Inhaler, Assist Device 1 EACH MC (11:34)
--- NOTE | 2023-03-05 13:41 | W.PFT ---
Date of service: 03/05/23 Time of Service: 10:07 Pulmonary Function Test Result Indications: Asthma Interpretation Spirometry: No airflow limitation. No significant bronchodilator response. FVC is low. Lung Volumes: Normal lung volumes Diffusion Capacity: Normal diffusion Airway Pressure: Normal airways resistance Impression Normal pulmonary function testing. Low FVC is pseudo restriction from obesity. Clinical Correlation therefore is recommended.
== END 2023-03-05 03:31 | disposition home or self-care (01) ==
LOC: RT 03:31
PROVIDERS: PCP Nurse Practitioner Family; Visit Provider Nurse Practitioner Family
DX: J45.998 Other asthma (principal); E66.9 Obesity, unspecified
CPT/HCPCS: 94060; 94726; 94729

== ENCOUNTER 2023-06-25 14:20 | Emergency (ER) | payer MEDICAID, SELFPAY ==
[2023-06-25 14:22] VITALS: BP 159/94; PULSE 92; RESP 16; TEMP 36.2; O2SAT 96
--- NOTE | 2023-06-25 14:27 | ED.GENADUL_ITS ---
Discharge Plan Disposition Patient Disposition: Home Discharge Details Clinical Impression: Acute abdominal pain in left upper quadrant Primary Care Provider: Anum Perez ED Provider: Enrique Johnson Home Meds and New Rx's Prescriptions: Continued hydrocortisone [Anti-Itch (HC)] 1 % cream 1 applic topical DAILY PRN naproxen 500 mg tablet 500 mg PO BID naltrexone 50 mg tablet Patient Comments: TAKE ONE-HALF TABLET BY MOUTH EVERY MORNING FOR 7 DAYS; THEN INCREASE TO ONE- HALF TABLET BY MOUTH TWICE DAILY fluticasone propionate 50 mcg/actuation spray,suspension INTRANASAL Patient Comments: USE 1 SPRAY IN EACH [facility]STRIL IN THE [facility] Discharge Instructions Instructions: Abdominal Pain (ED) Additional Instructions: You are seen in the emergency department for your abdominal pain. You are x-ray showed no sign of any rib fractures. As we discussed, if you develop fevers nausea vomiting or worsening pain please return to the emergency department. Otherwise please follow-up with your primary care provider next week. For your pain please take medications as follows: 1. Take acetaminophen (Tylenol), 1,000 mg (two 500 mg tabs) every 6 hours [2. Take ibuprofen (Advil), 400 mg every 6 hours.] Discharge Data Discharge Date/Time-TO BE ENTERED AT DEPARTURE: 06/25/23 15:47 HPI General Date/Time Provider Initiated Documentation: 06/25/23 14:26 . HPI Narrative: MDM This is an overall very well-appearing afebrile and not tachycardic 33-year-old male with left lower quadrant pain which became left flank pain at the gym concerning for musculoskeletal strain based on history and physical. No chest pain to suggest ACS so I did not obtain ECG nor check a troponin. No history of ureterolithiasis and pain is reproducible on exam so my suspicion for ureterolithiasis is low so I did not feel that the patient required ultrasound nor CT scan. No pain out of proportion to suggest necrotizing soft tissue infection. I considered ruptured AAA however based on the patient's age my suspicion for ruptured AAA is low. Furthermore he has no pulsatile masses nor any history of AAA. As result I did not feel that he required a CT scan. No rash to flank to suggest zoster. Patient has no history of aneurysms and so my suspicion for splenic arterial aneurysm is low. No chest pain to suggest PE and patient is PERC negative so I did not obtain a D-dimer. No shortness of breath to suggest tamponade and patient is not tachycardic nor hypotensive nor dialysis patient so my suspicion for tamponade is low. Given no shortness of breath and no trauma my suspicion is low for pneumothorax. Nonetheless given left flank pain will obtain chest x-ray. If chest x-ray is reassuring will discharge patient with an empiric trial of expectant outpatient management. Patient is concerned about the possibility of appendicitis. Given his left flank tenderness which occurred after straining himself at the gym my suspicion is low for appendicitis as he has no right lower quadrant tenderness and no fevers so I did not feel that he required a CT scan. 10:50 PM Chest x-ray read as reassuring. I met with the patient. I advised acetaminophen and ibuprofen. I advise ED return for any shortness of breath or chest pain. Patient understood his return indications and was discharged with an empiric trial of expectant outpatient management. Chronic conditions affecting the care of the patient: Elevated BMI History obtained from an outside historian: N/A External record review: [facility] EMR Diagnostic interpretations performed by me: Per my independent interpretation chest x-ray shows: No definitive process on two-view chest x-ray ]Medications: Patient declined oral analgesia Social determinants of health affecting disposition: N/A Management discussed with: N/A Treatment/interventions considered: N/A Response to therapies provided: N/A HPI This is a 33-year-old male arrived to the emergency department via private vehicle in the setting of left flank pain. Patient reports that he bent over at the gym while cleaning some equipment after his exercise. He reported that he felt a sharp pain in his left lower abdomen. He was concerned that he had injured his appendix. His pain subsequently moved into his left upper abdomen and his left flank. He denied any specific additional exercises today. He is not anticoagulated. He describes his pain as sharp. He has no history of ureterolithiasis. No history of any recent trauma or fall. He denies hematuria. He was in his usual state of health earlier today and denies nausea vomiting chest pain fevers and chills. He is not a routine tobacco user nor ethanol user and he denies IV drug use. Exam General: Well-appearing in no acute distress speaking in complete sentences. Head: Normocephalic, atraumatic. Eye: Extraocular eye movements intact. No conjunctival injection. No scleral icterus. Ear, nose, mouth, throat: Grossly normal inspection. Normal voice, handling secretions normally. Neck: Trachea midline. Cardiovascular: Well-perfused distal extremities. Regular rate and rhythm Respiratory: Nonlabored respiration. Clear lungs bilaterally. Gastrointestinal: Nondistended abdomen. No right lower quadrant tenderness. Soft abdomen. Left upper quadrant tenderness and left flank tenderness. No rash to abdomen. Musculoskeletal: No edema. Moving all 4 extremities spontaneously. Skin: Normal for age and race, grossly normal temperature and turgor. No acute rash. Neurologic: Alert and appropriate, no apparent acute deficits. Psychiatric: Mood and manner are appropriate. Grooming and personal hygiene are appropriate. Related Data Home Medications Medication Instructions Recorded Confirmed hydrocortisone 1 % topical cream 1 applic topical DAILY PRN 11/23/19 06/25/23 (Anti-Itch (hydrocortisone)) naproxen 500 mg tablet 500 mg PO BID 11/23/19 06/25/23 fluticasone propionate 50 intranasal 06/25/23 mcg/actuation nasal spray,suspension naltrexone 50 mg tablet mg 06/25/23 Allergies Allergy/AdvReac Type Severity Reaction Status Date / Time tree and shrub pollen Allergy Intermediate HEADACHE Unverified 06/25/23 14:24 General Stated Complaint: Abd Prob QUENTIN: 3 Course Vital Signs Vital signs: Vital Signs Temperature 36.2 C L 06/25/23 14:22 Pulse 92 H 06/25/23 14:22 Respiratory Rate 16 06/25/23 14:22 Blood Pressure 159/94 H 06/25/23 14:22 Pulse Oximetry 96 06/25/23 14:22 Temperature 36.2 C L 06/25/23 14:22 Temperature Source Tympanic 06/25/23 14:22 Pulse 92 H 06/25/23 14:22 Respiratory Rate 16 06/25/23 14:22 Blood Pressure 159/94 H 06/25/23 14:22 Blood Pressure Position Sitting 06/25/23 14:22 Pulse Oximetry 96 06/25/23 14:22 Oxygen Delivery Method Room Air 06/25/23 14:22 Oxygen Flow Rate 0 06/25/23 14:22 Pain Level 5 06/25/23 14:22 Medical Decision Making Quality:SDOH Health Related Social Needs: No Data to Display PFSH All Active Problems (Updated 06/25/23 @ 14:41 by Enrique Johnson MD) Acute abdominal pain in left upper quadrant (Acute) Left wrist pain (Acute) Left wrist tendinitis (Acute) Steatosis of liver (Acute) Vertigo (Acute) Migraines (Chronic) Scrotal pain (Acute) Medical History Allergic rhinitis Asthma, mild intermittent, well-controlled Back pain Chronic headaches Closed lumbar vertebral fracture Cognitive developmental delay Heart burn Hemorrhoids Hydrocele Learning disability Mood disorder Olfactory hallucinations Oppositional disorder Social History Smoking/Tobacco Use Status: Never Smoking risk assessment performed?: Yes Alcohol Intake: never Drug use: Never Substance use type: does not use Current gender identity: male Do you feel safe at home: Yes Do you feel safe in your relationship?: Yes
--- NOTE | 2023-06-25 14:53 | DI.RAD_ITS ---
Exam(s) XR CHEST 2V PA LATERAL EXAM: XR CHEST 2V PA LATERAL CLINICAL HISTORY: Left flank pain. TECHNIQUE: 2D digital imaging was performed. COMPARISON: CR XR sternum from 06/13/2018 FINDINGS: 2 views: Heart size is normal. The mediastinum is not widened. Lungs are clear. No infiltrates nor pleural effusions. IMPRESSION: No acute pulmonary findings. DATA REPOSITORY: RADIATION DOSE DELIVERED:
[2023-06-25 15:45] VITALS: BP 142/76; PULSE 76; RESP 16; TEMP 36.2; O2SAT 98
== END 2023-06-25 15:47 | disposition home or self-care (01) ==
LOC: ER 14:44
PROVIDERS: Emergency Provider Emergency Medicine; PCP Nurse Practitioner Family
DX: R10.12 Left upper quadrant pain (principal)
CPT/HCPCS: 99283; 71046

== ENCOUNTER → 2023-06-28 13:12 | Outpatient (CLI) | payer MEDICAID, SELFPAY ==
--- NOTE | 2023-06-28 | DI.CT_ITS ---
Exam(s) CT ABDOMEN PELVIS W EXAM: CT ABDOMEN PELVIS W CLINICAL HISTORY: R10.32 LLQ pain x3 days, r/o diverticulitis TECHNIQUE: Imaging Protocol: Axial computed tomography images with coronal and sagittal reformatted images were created and reviewed. CONTRAST MATERIAL: Intravenous: Omnipaque 350 Contrast volume:100 mL Oral: Yes COMPARISON: CT ABD PELVIS WITH CONTRAST from 02/23/2011 FINDINGS: The patient vomited during the examination. The patient was rescanned without additional IV contrast . ABDOMEN: Lung Bases: Normal where visualized. Liver: There is diffuse decreased attenuation of the liver consistent with fatty infiltration. No me asurable mass. Portal, Superior Mesenteric, and Splenic Veins: Unremarkable. Gallbladder and Biliary Tract: No radiodense calculus or dilation. Pancreas: Normal density, no abnormal calcifications or inflammatory process. Spleen: Normal. Adrenals: No masses seen. Kidneys: Normal size, contour and axis. No radiodense stones or obstructive uropathy. No masses seen. Abdominal Aorta: Abdominal portion non-dilated. Bowel: No obstruction or bowel wall thickening. Appendix is unremarkable. Peritoneal Cavity: No ascites, collection or mesenteric inflammatory response. No free air. Lymph Nodes: Within normal limits. Bones: Within normal limits for the patient's age. Soft Tissues: Unremarkable. PELVIS: Bladder: Symmetric distention, no gross wall thickening. Reproductive Organs: Unremarkable as visualized. Lymph Nodes: Within normal limits. Bones: Within normal limits for the patient's age. IMPRESSION: 1. Examination limited by patient motion artifact. 2. No acute abdominal or pelvic process. 3. Hepatic steatosis. RADIATION DOSE DELIVERED: 2,528.07mGy.cm Total DLP DATA REPOSITORY: All CT scans at this facility are submitted to the National Radiology Data Registry (NRDR) Dose Index Registry (DIR) with the [employer] ([employer]). RADIATION OPTIMIZATION: All CT scans at this facility use at least one of these dose optimization te chniques: automated exposure control; mA and/or kV adjustment per patient size (includes targeted exa ms where dose is matched to clinical indication); or iterative reconstruction.
[2023-06-28] MEDS: Omnipaque 350 MG/ML 100 ML BTL IJ (14:28)
[2023-06-28] MEDS: Barium Sulfate 2% W/V-Creamy Vanilla Smoothie 450 ML BTL PO (14:30)
== END ==
PROVIDERS: PCP Nurse Practitioner Family; Visit Provider Nurse Practitioner Family
DX: K76.0 Fatty (change of) liver, not elsewhere classified (principal)
CPT/HCPCS: 74177; J3490

== ENCOUNTER 2023-06-28 18:07 | Outpatient (REF) | payer MEDICAID, SELFPAY ==
[2023-06-28 22:19] LABS: Abs Immature Grans 0.08 10^3/uL (0.0-0.06); Absolute Basophil Count 0.07 10^3/uL (0.0-0.2); Absolute Eosinophil Count 0.16 10^3/uL (0.0-0.7); Absolute Lymphocyte Count 3.18 10^3/uL (1.2-3.4); Absolute Monocyte Count 0.84 10^3/uL (0.1-0.8); Absolute Neutrophil Count 6.09 10^3/uL (1.2-6.7); Basophils % 0.7; Eosinophils % 1.5; HCT 47.3 % (40.0-50.0); HGB 15.5 g/dL (13.5-17.5); Immature Grans % 0.8; Lymphocytes % 30.5; MCH 29.5 pg (27.0-33.0); MCHC 32.8 % (32.0-36.0); MCV 90 fL (80-95); Monocytes % 8.1; Neutrophils % 58.4; Platelet Count 326 10^3/uL (130-400); RBC 5.25 10^6/uL (4.36-5.78); RDW 12.4 % (11.8-14.1); RDW-SD 41.4 fL; WBC 10.42 10^3/uL (4.4-10.8)
[2023-06-28 22:48] LABS: ALT 58 U/L (16-63); AST 19 U/L (15-37); Albumin 4.3 g/dL (3.4-5.0); Alkaline Phosphatase 89 U/L (46-116); Anion Gap 7.9 mmol/L (3-11); BUN 14 mg/dL (7-18); Bilirubin, Total 0.7 mg/dL (0.2-1.0); CO2 28.1 mmol/L (21.0-32.0); Calcium 9.3 mg/dL (8.5-10.1); Chloride 106 mmol/L (98-107); Estimated GFR 103.19 (mL/min/1.73m2); Glucose 97 mg/dL (74-106); Potassium 4.6 mmol/L (3.5-5.1); Sodium 142 mmol/L (136-145)
[2023-06-28 22:51] LABS: C-Reactive Protein < 0.50 mg/dL (<or=0.5)
== END 2023-06-28 18:08 | disposition home or self-care (01) ==
LOC: NCHCN 18:07
PROVIDERS: PCP Nurse Practitioner Family; Visit Provider Nurse Practitioner Family
DX: R10.32 Left lower quadrant pain (principal)
CPT/HCPCS: 80053; 85025; 86140

== ENCOUNTER 2023-11-16 01:21 | Outpatient (CLI) | payer MEDICAID, SELFPAY ==
--- NOTE | 2023-11-16 07:30 | DI.RAD_ITS ---
Exam(s) XR LUMBAR SPINE COMPLETE EXAM: XR LUMBAR SPINE COMPLETE CLINICAL HISTORY: worsening low back pain, compare to 2019,m54.50. TECHNIQUE: 2D digital imaging was performed. COMPARISON: CR XR lumbar spine complete from 10/31/[address] ABDOMEN PELVIS W from 06/28/2023 FINDINGS: Five views. No evidence of acute fracture, listhesis, nor pars interarticularis defects. All the disc spaces con tinue to exhibit normal height. There is irregularity of the superior endplate of L2 again noted, un changed from 2019. This is either related to a non recent Schmorl's node invagination or mild compre ssion deformity. Nevertheless, unchanged from previous imaging studies. There is no scoliosis. Sac roiliac joints unremarkable. No osseous lesions. Facet joints unremarkable. IMPRESSION: Findings as above at superior endplate of L2 vertebral body but without significant radiographic cottrell ge compared to 2019. DATA REPOSITORY: RADIATION DOSE DELIVERED:
== END 2023-11-16 01:41 ==
LOC: DI 01:21
PROVIDERS: PCP Nurse Practitioner Family; Visit Provider Nurse Practitioner Family
DX: M51.86 Other intervertebral disc disorders, lumbar region (principal)
CPT/HCPCS: 72110

== ENCOUNTER 2024-01-21 00:46 | Outpatient (CLI) | payer MEDICAID, SELFPAY ==
--- OUTSIDE RECORDS SUMMARY | 2024-01-21 00:50 | XMS_ITS | Encounter Summary ---
Author Organization [facility] [place] [address] Care Team Providers Care Patient Service Specialist Name Role Phone Anum Perez APRN Primary Care Provider [phone] Encounter Details Date Type Department Care Team (Latest Contact Info) Description 12/25/2022 Travel Social History Tobacco Use Types Packs/Day Years Used Date Smoking Tobacco: Never Smokeless Tobacco: Never Alcohol Use Standard Drinks/Week Comments Not Currently 0 (1 standard drink = 0.6 oz pur e alcohol) Sex and Gender Information Value Date Recorded Sex Assigned at Not on file Gender Identity Not on file Sexual Orientation Not on file documented as of this encounter Plan of Treatment Not on file documented as of this encounter Visit Diagnoses Not on filedocumented in this encounter Care Teams Patient Service Specialist Relationship Specialty Start Date End Date Anum Perez APRN PCP - General Family Medicine 02/06/20 documented as of this encounter
--- OUTSIDE RECORDS SUMMARY | 2024-01-21 00:50 | XMS_ITS | Encounter Summary ---
Author Organization [facility] [place] [address] Care Team Providers Care Salesperson [employer] Name Role Phone Anum Perez APRN Primary Care Provider [phone] Encounter Details Date Type Department Care Team (Latest Contact Info) Description 03/18/2023 Travel Social History Tobacco Use Types Packs/Day [...] on filedocumented in this encounter Care Teams Salesperson [employer] Relationship Specialty Start Date End Date Anum Perez APRN PCP - General Family Medicine 02/06/20 documented as of this encounter
--- OUTSIDE RECORDS SUMMARY | 2024-01-21 00:50 | XMS_ITS | Encounter Summary ---
Author Organization [facility] Address [address] [place] [address] Care Team Providers Care Violin Tutor Name Role Phone Unavailable Primary Care Provider Unavailabl e Encounter Details Date Type Department Care Team (Late st Contact Info) Description 08/27/2021 Lab Requisition [facility] Pathology & Laboratory Medicine - [address] [address] Outr Resulting Lab, Provider Social History Tobacco Use Types Packs/Day Years Used Date Smoking Tobacco: Never Assessed Interpersonal Safety Answer Date Record ed Physically Hurt Never 07/25/2020 Verbally Threaten Not on file 07/25/2020 Sex and Gender Information Value Date Recorded Sex Assigned at Not on file Gender Identity Not on file Sexual Orientation Not on file documented as of this encounter Plan of Treatment Not on file documented as of this encounter Procedures Procedure Name Priority Date/Time Associated Diagnosis Comments CCP ANTIBODIES Routine 08/26/2021 15:55 EDT RHEUMATOID FACTOR Routine 08/26/2021 15: 55 EDT documented in this encounter Results * RHEUMATOID FACTOR (08/26/2021 15:55 EDT) Rheumatoid Factor <8.6 <12.0 IU/mL 08/27/2021 16:41 EDT [facility] Blood VENOUS BLOOD / Unknown 08/26/2021 15:55 EDT 08/27/2021 16:24 EDT Provider Outr Resulting Lab CHEMISTRY & BLOOD GAS ORDERABLES [facility] [address] [place] [address] * CCP ANTIBODIES (08/26/2021 15:55 EDT) CCP Antibodies <2.5 <5.0 U/mL 08/28/2021 9:21 EDT [facility] Blood VENOUS BLOOD / Unknown 08/26/2021 15:55 EDT 08/27/2021 16:24 EDT Provider Outr Resulting Lab IMMUNOLOGY A ND SEROLOGY ORDERABLES [facility] [address] [place] [address] documented in this encounter Visit Diagnoses Not on filedocumented in this encounter
--- OUTSIDE RECORDS SUMMARY | 2024-01-21 00:50 | XMS_ITS | Encounter Summary ---
Author Organization [facility] perez [place] [id number] Care Team Providers Care Containers Sales Representative Name Role Phone Anum Perez APRN Primary Care Provider Reason for Visit * Reason Comments Establish Care LT WRIST EVAL AND IN JECTION(QUDSI) radiocarpal inj * Consultation (Routine) - Closed Specialty Diagnoses / Procedures Referred By Contac t Referred To Contact Orthopaedics Diagnoses LT WRIST PAIN Eran Schmid MD [facility] [place] [address] Talha Kimball MD [facility] [place] [address] Referral ID Status Reason Start Date Expiration Date V isits Requested Visits Authorized [id number] Closed Consult, Test & Treat 06/16/2022 06/16/2023 1 1 Encounter Details Date Type Department Care Team (Late st Contact Info) Description 07/24/2022 10:00 AM EDT Office Visit Orthopaedics at [place] [phone] Talha Kimball MD [facility] [place] [address] Pain in left wrist; Ganglion cyst of joint of finger of left hand; Scapholunate ligament injury with no instability, left, initial encounter Social History Tobacco Use Types Packs/Day Years [...] Taken Comments Blood Pressure - - Pulse - - Temperature - - Respiratory Rate - - Oxygen Saturation - - Inhaled Oxygen Concentration - - Weight 115.9 kg (255 lb 8 oz) 3 10:09 AM EDT Height 176.1 cm (5' 9.33) 07/24/2022 1 0:09 AM EDT with shoes Body Mass Index 37.37 07/24/2022 10:09 AM EDT documented in this encounter Progress Notes * Talha Kimball MD - 07/24/2022 10:00 AM EDT [facility] NEW VISIT NOTE CC: Establish Care (LT WRIST EVAL AND INJECTION(QUDSI) radiocarpal inj) HPI: The patient is a 32 y.o. male who presents with Establish Care (LT WRIST EVAL AND INJECTION(QUDSI) radiocarpal inj) patient presents today with left wrist pain. The pain originally began around one year ago, withoutany specific inciting event. The patient notes that he plays video games, however does not note that this is specifically the thing that causes pain. He states that the pain today is rated 4/10, and comes and goes. Overall the pain is been getting better recently. He notes that there is no specificreason that he can come up with as to why it's getting better, however he just seems to have some resolution of symptoms. The patient notes that it's worse when he is lifting heavy things. The patient has tried occupational therapy for couple months, and felt as though he improved however plateaued. Patient prefers exercise via walking and weightlifting. Relevant labs- BMI Readings from Last 2 Encounters: 07/24/22 37.37 kg/m?? 06/16/22 40.08 kg/m?? No results found for: HA1C No results found for: INR, PT BP Readings from Last 3 Encounters: 02/24/22 127/73 01/20/22 129/82 02/19/20 144/75 No results found for: WBC, HGB, HCT, MCV, PLATELET No results found for: CHLPL No results found for: HDL No results found for: LDLCHOL No results found for: TRIG No results found for: CHOLHDL RADIOLOGY No new imaging. Physical Exam: Vitals: Ht 176.1 cm (5' 9.33) Comment: with shoes Wt 115.9 kg (255 lb 8 oz) BMI 37.37 kg/m?? - Gen: Alert and following commands, no acute distress - CV: pulses 2+ and equal - Skin: Intact skin, non-erythematous, no rashes or breakdown appreciated MSK At the left wrist Inspection: No deformity No swelling around the wrist Alignment: no radial or ulnar deviation ROM: Full in all planes including flexion, extension, ulnar and median deviation. Strength: (R/L) Extension: 5/5 Flexion: 5/5 Pronation: 5/5 Supination: 5/5 Palpation: Anatomic snuffbox: No ttp DRUJ: No ttp SL interval: mild ttp Ganglion: None appreciated Base of the thumb: No ttp TFCC: No ttp A1 zamzam/flexor tendon junction: No ttp Special tests: DeQuervain Tenosynovitis Lindsay: neg Diagnostic Ultrasound Diagnostic Musculoskeletal Ultrasound of the Left Wrist/Hand Indication: Pain and limited function. Equipment: [employer] with a 4-20 MHz linear transducer. All images from this study are archived locally. All structures were imaged in longitudinal and transverse planes. Findings: Dorsal wrist: Dorsal joint recess: Normal, no edema noted Scapholunate ligament: Disorganized tissue noted, cyst located at the lunate 4th dorsal compartment: Normal PIN: normal Deep radial artery/vein: normal Impression: Cyst likely coming from SL ligament. 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 At thispoint we discussed treatment options, and the patient seems to be improving. We will hold off on doing any injections, and the patient will continue with his occupational therapy exercises. If he does not improve, or the pain gets worse, we can consider aspiration of the cyst, and possible injection. Plan: - Rehab: HEP - address the biomechanical issues noted on exam today. - Medications: No changes were made today.. Counseled regarding side effects and appropriate administration of medications as applicable. - Diagnostics: US provided today - Injections: defer - Medical Decision Making: Discussed surgical and non-surgical options. Detailed the patient's condition, prognosis, further work-up and treatment options. Activity modification was discussed. Answered all of the patient's questions. - F/U - as needed. Consider injection/aspiration of lunate cyst as applicable Return sooner if needed, advised to call with any questions or concerns in the interim. Talha Kimball MD Sports Ball Warper TenderCoiled Tubing Supervisor of Orthopedics [facility] The note was created using dictation, please excuse any grammatical or word errors. documented in this encounter Plan of Treatment Not on file documented as of this encounter Visit Diagnoses Diagnosis Pain in left wrist Pain in joint, forearm Ganglion cyst of joint of finger of left hand Scapholunate ligament injury with no instability, left, initial encounter documented in this encounter Care Teams Containers Sales Representative Relationship Specialty Start Date End Date Anum Perez APRN PCP - General Family Medicine 02/06/20 documented as of this encounter
--- OUTSIDE RECORDS SUMMARY | 2024-01-21 00:50 | XMS_ITS | Encounter Summary ---
Author Organization [facility] [place] [address] Care Team Providers Care Manga Artist Name Role Phone Anum Perez APRN Primary Care Provider [phone] Encounter Details Date Type Department Care Team (Latest Contact Info) Description 07/24/2022 Travel Social History Tobacco Use Types Packs/Day [...] on filedocumented in this encounter Care Teams Manga Artist Relationship Specialty Start Date End Date Anum Perez APRN PCP - General Family Medicine 02/06/20 documented as of this encounter
--- OUTSIDE RECORDS SUMMARY | 2024-01-21 00:50 | XMS_ITS | Data Portability ---
Author Organization [place] - [facility] [place] [address] Care Team Providers Care It Risk And Assurance Senior Manager Name Role Phone MARIKA ABRAHAM Primary Care Provider [phone] KVNG ALVARADO Dentist Assessment No assessment recorded. Plan of Treatment Reminders Order Date Submit Date Provider Last Modified By Organization Details Last Modified Time Details Appointments None recorded. Lab CBC w/ auto diff 2023 024 [facility] (Registration ), [address] [place] [address] [place], [address], 4 22:23:47 C-reactiv e protein, quantitat manuel, serum or plasma 2023 024 [facility] (Registration ), [address] [place] [address] [place], [address], 4 09:01:33 CMP, serum or plasma 2023 024 [facility] (Registration ), [address] [place] [address] [place], [address], 4 22:53:47 venipunct ure 2023 024 [email or web address] Not available 11:59:05 urinalysi s, dipstick 2023 024 [email or web address] [facility], [address] [place] [address], [address], [place], [address], 4 12:10:23 Referral None recorded. Procedures None recorded. Surgeries None recorded. Imaging CT, abdomen + pelvis, w/ contrast - LLQ pain X 3 days, r/o diverticu litis 2023 024 [facility], [address], [place], [address], 4 15:27:41 Medication Orders Contrave 8 mg-90 mg tablet,ex tended release 2023 024 [facility], [address] [place] [address], [address], 4 09:35:29 fluticaso ne propionat e 50 mcg/actua tion nasal spray,susan pension 2023 024 [facility], [address] [place] [address], [address], 4 10:04:02 naproxen 500 mg tablet 2023 024 [facility], [address] [place] [address], [address], 4 10:09:40 cyclobenz aprine 10 mg tablet 2023 024 [facility], [address] [place] [address], [address], 4 14:32:44 Protonix 20 mg tablet,de layed release 2023 024 [facility], [address] [place] [address], [address], 4 14:34:29 Patient TargetsNo targets recorded. Patient Instructions Encounter Date Encounter Id Patient Instructions Last Modified By Organization Details Last Modified Time 04/27/2023 [id number] Da start Contrave for wt loss- if the insurance wont cover it- we will order a different medication. 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 start naproxen for pain in your arm, take for 2 weeks with food. fax number for [facility] [phone] follow up in 6 weeks Not available 05/26/2023 10:30:41 06/29/2023 [id number] Da: start cyclobenzaprine for muscle spasm, continue naproxen (anti-inflammatory) , start protonix for heartburn every morning for 10 days. stop naltrexone follow up with Marika early next week. Not available 06/29/2023 14:35:35 07/12/2023 [id number] Call [facility] internal medicine [phone] for a new patient packet and a new pt visit- have Cesar call and complete paper work for you. Not available 07/12/2023 16:34:16 Reason for Referral None Reported. Results Created Date Observation Date Name Description Value Unit Range Abnormal Flag Note LastModifiedBy Organization Detail LastModifiedTime 06/28/19 24 06/28/2023 COMPL ETE BLOOD COUNT W/DIF F WBC 10.42 10_3/ uL 4.4-10 .8 normal Not Available [address] [place], [address] 06/28/2023 22:23:47 06/28/19 24 06/28/2023 COMPL ETE BLOOD COUNT W/DIF F RBC 5.25 10_6/ uL 4.36-5 .78 normal Not Available [address] [place], [address] 06/28/2023 22:23:47 06/28/19 24 06/28/2023 COMPL ETE BLOOD COUNT W/DIF F HGB 15.5 g/dL 13.5-1 7.5 normal Not Available [address] [place], [address] 06/28/2023 22:23:47 06/28/19 24 06/28/2023 COMPL ETE BLOOD COUNT W/DIF F HCT 47.3 % 40.0-5 0.0 normal Not Available [address] [place], [address] 06/28/2023 22:23:47 06/28/19 24 06/28/2023 COMPL ETE BLOOD COUNT W/DIF F MCV 90 fL 80-95 normal Not Available Trav [address] [place], [address] 06/28/2023 22:23:47 06/28/19 24 06/28/2023 COMPL ETE BLOOD COUNT W/DIF F MCH 29.5 pg 27.0-3 3.0 normal Not Available [address] [place], [address] 06/28/2023 22:23:47 06/28/19 24 06/28/2023 COMPL ETE BLOOD COUNT W/DIF F MCHC 32.8 % 32.0-3 6.0 normal Not Available [address] [place], [address] 06/28/2023 22:23:47 06/28/19 24 06/28/2023 COMPL ETE BLOOD COUNT W/DIF F RDW 12.4 % 11.8-1 4.1 normal Not Available [address] [place], [address] 06/28/2023 22:23:47 06/28/19 24 06/28/2023 COMPL ETE BLOOD COUNT W/DIF F platelet count 326 10_3/ uL 130-40 0 normal Not Available [address] [place], [address] 06/28/2023 22:23:47 06/28/19 24 06/28/2023 COMPL ETE BLOOD COUNT W/DIF F MPV 10.0 fL 8.0-11 .0 normal Not Available [address] [place], [address] 06/28/2023 22:23:47 06/28/19 24 06/28/2023 COMPL ETE BLOOD COUNT W/DIF F neutrophils % 58.4 Not Available [address] [place], [address] 06/28/2023 22:23:47 06/28/19 24 06/28/2023 COMPL ETE BLOOD COUNT W/DIF F lymphocytes % 30.5 Not Available [address] [place], [address] 06/28/2023 22:23:47 06/28/19 24 06/28/2023 COMPL ETE BLOOD COUNT W/DIF F monocytes % 8.1 Not Available [address] [place], [address] 06/28/2023 22:23:47 06/28/19 24 06/28/2023 COMPL ETE BLOOD COUNT W/DIF F eosinophils % 1.5 Not Available [address] [place], [address] 06/28/2023 22:23:47 06/28/19 24 06/28/2023 COMPL ETE BLOOD COUNT W/DIF F basophils % 0.7 Not Available [address] [place], [address] 06/28/2023 22:23:47 06/28/19 24 06/28/2023 COMPL ETE BLOOD COUNT W/DIF F immature grans % 0.8 Not Available [address] [place], [address] 06/28/2023 22:23:47 06/28/19 24 06/28/2023 COMPL ETE BLOOD COUNT W/DIF F nucleated RBC 0.0 % 0.0-0. 3 normal Not Available [address] [place], [address] 06/28/2023 22:23:47 06/28/19 24 06/28/2023 COMPL ETE BLOOD COUNT W/DIF F absolute neutrophil count 6.09 10_3/ uL 1.2-6. 7 normal Not Available [address] [place], [address] 06/28/2023 22:23:47 06/28/19 24 06/28/2023 COMPL ETE BLOOD COUNT W/DIF F absolute lymphocyte count 3.18 10_3/ uL 1.2-3. 4 normal Not Available [address] [place], [address] 06/28/2023 22:23:47 06/28/19 24 06/28/2023 COMPL ETE BLOOD COUNT W/DIF F absolute monocyte count 0.84 10_3/ uL 0.1-0. 8 high Not Available [address] [place], [address] 06/28/2023 22:23:47 06/28/19 24 06/28/2023 COMPL ETE BLOOD COUNT W/DIF F absolute eosinophil count 0.16 10_3/ uL 0.0-0. 7 normal Not Available [address] [place], [address] 06/28/2023 22:23:47 06/28/19 24 06/28/2023 COMPL ETE BLOOD COUNT W/DIF F absolute basophil count 0.07 10_3/ uL 0.0-0. 2 normal Not Available [address] [place], [address] 06/28/2023 22:23:47 06/28/19 24 06/28/2023 COMPR EHENS MANUEL METAB OLIC PANEL calcium 9.3 mg/dL 8.5-10 .1 normal Not Available [address] [place], [address] 06/28/2023 22:53:47 06/28/19 24 06/28/2023 COMPR EHENS MANUEL METAB OLIC PANEL glucose 97 mg/dL 74-106 normal Not Available Trav [address] [place], [address] 06/28/2023 22:53:47 06/28/19 24 06/28/2023 COMPR EHENS MANUEL METAB OLIC PANEL BUN 14 mg/dL 7-18 normal Not Available Trav [address] [place], [address] 06/28/2023 22:53:47 06/28/19 24 06/28/2023 COMPR EHENS MANUEL METAB OLIC PANEL creatinine 1.0 mg/dL 0.70-1 .30 normal Not Available [address] [place], [address] 06/28/2023 22:53:47 06/28/19 24 06/28/2023 COMPR EHENS MANUEL METAB OLIC PANEL estimated GFR 103.19 mL/min /1.73m 2 The eGFR is calcu lated from a serum creat inine using the CKD-E PI 2020 equat ion. Other varia bles requi red for the equat ion are gende r and age; this equat ion does not inclu de a race coeff icien t. This equat ion has simil ar overa ll perfo rmanc e to previ ous equat ions excep t value s may diffe r, in parti cular , in patie nts with highe r value s of eGFR and young er-ag ed adult s. Not Available [address] [place], [address] 06/28/2023 22:53:47 06/28/19 24 06/28/2023 COMPR EHENS MANUEL METAB OLIC PANEL total protein 7.0 g/dL 6.4-8. 2 normal Not Available [address] [place], [address] 06/28/2023 22:53:47 06/28/19 24 06/28/2023 COMPR EHENS MANUEL METAB OLIC PANEL albumin 4.3 g/dL 3.4-5. 0 normal Not Available [address] [place], [address] 06/28/2023 22:53:47 06/28/19 24 06/28/2023 COMPR EHENS MANUEL METAB OLIC PANEL bilirubin, total 0.7 mg/dL 0.2-1. 0 normal Not Available [address] [place], [address] 06/28/2023 22:53:47 06/28/19 24 06/28/2023 COMPR EHENS MANUEL METAB OLIC PANEL alk phos 89 U/L 46-116 normal Not Available [address] [place], [address] 06/28/2023 22:53:47 06/28/19 24 06/28/2023 COMPR EHENS MANUEL METAB OLIC PANEL sodium 142 mmol/ L 136-14 5 normal Not Available [address] [place], [address] 06/28/2023 22:53:47 06/28/19 24 06/28/2023 COMPR EHENS MANUEL METAB OLIC PANEL potassium 4.6 mmol/ L 3.5-5. 1 normal Not Available [address] [place], [address] 06/28/2023 22:53:47 06/28/19 24 06/28/2023 COMPR EHENS MANUEL METAB OLIC PANEL chloride 106 mmol/ L 98-107 normal Not Available [address] [place], [address] 06/28/2023 22:53:47 06/28/19 24 06/28/2023 COMPR EHENS MANUEL METAB OLIC PANEL CO2 28.1 mmol/ L 21.0-3 2.0 normal Not Available [address] [place], [address] 06/28/2023 22:53:47 06/28/19 24 06/28/2023 COMPR EHENS MANUEL METAB OLIC PANEL anion gap 7.9 mmol/ L 3-11 normal Not Available [address] [place], [address] 06/28/2023 22:53:47 06/28/19 24 06/28/2023 COMPR EHENS MANUEL METAB OLIC PANEL AST 19 U/L 15-37 normal Not Available Trav alvarado [address] [place], [address] 06/28/2023 22:53:47 06/28/19 24 06/28/2023 COMPR EHENS MANUEL METAB OLIC PANEL ALT 58 U/L 16-63 normal Not Available Trav alvarado [address] [place], [address] 06/28/2023 22:53:47 06/28/19 24 06/28/2023 C-JOE CTIVE PROTE IN C-reactive protein < 0.50 mg/dL <or=0. [address] [facility] (Registration ) [address] [place] [address] [place], [address], 06/28/2023 22:53:48 06/28/19 24 06/28/2023 urina lysis , dipst ick Leukocytes Trace Not Available [address], [place], [address], 06/28/2023 12:00:44 06/28/19 24 06/28/2023 urina lysis , dipst ick Nitrite negati ve Not Available [address] [address], [place], [address], 06/28/2023 12:00:44 06/28/19 24 06/28/2023 urina lysis , dipst ick Urobilinogen .2 Not Available [address] [address], [place], [address], 06/28/2023 12:00:44 06/28/19 24 06/28/2023 urina lysis , dipst ick Protein Trace Not Available [address] [address], [place], [address], 06/28/2023 12:00:44 06/28/19 24 06/28/2023 urina lysis , dipst ick pH 5.0 Not Available [address], [place], [address], 06/28/2023 12:00:44 06/28/19 24 06/28/2023 urina lysis , dipst ick Blood Negati ve Not Available [address] [address], [place], [address], 06/28/2023 12:00:44 06/28/19 24 06/28/2023 urina lysis , dipst ick Specific [place] 1.025 Not Available [address], [place], [address], 06/28/2023 12:00:44 06/28/19 24 06/28/2023 urina lysis , dipst ick Ketone Negati ve Not Available [address], [place], [address], 06/28/2023 12:00:44 06/28/19 24 06/28/2023 urina lysis , dipst ick Bilirubin Small Not Available [address], [place], [address], 06/28/2023 12:00:44 06/28/19 24 06/28/2023 urina lysis , dipst ick Glucose Negati ve Not Available [address], [place], [address], 06/28/2023 12:00:44 06/28/19 24 06/28/2023 urina lysis , dipst ick Appearance Clear Not Available Adelfo doshi [address], [place], [address], 06/28/2023 12:00:44 06/28/19 24 06/28/2023 urina lysis , dipst ick Color [place] Not Available [address], [place], [address], 06/28/2023 12:00:44 06/25/19 24 06/25/2023 x-ray imagi ng repor t Key t Name: Willam Casey R Unit #: [id number] Loc: ER Orderi [facility] er: Enrique Calderón M.D. Accmarlena t #: [id number] Status : REG ER Primar y Care Provid er: Phillip Abraham linda Date of Exam: Sex: M Admiss ion Date: : 1990 Age: 33 Exam(s ) XR CHEST 2V PA LATERA L EXAM: XR CHEST 2V PA LATERA L CLINIC AL HISTOR Y: Left flank pain. TECHNI QUE: 2D digita l imagin g was perfor med. COMPAR QUAN: CR XR sternu m from 2018 FINDIN GS: 2 views: Heart size is normal . The medias tinum is not widene d. Lungs are clear. No infilt rates nor pleura l effusi ons. IMPRES RADHA: No acute pulmon kofi findin gs. DATA REPOSI TORY: RADIAT ION DOSE DELIVE RED: Ordere d By: Enrique Calderón M.D. CC: ------ ------ ------ ------ ------ ------ ------ ------ ------ ------ ------ ------ - Dictat ed By: Brad Tinsley M.D. 1533 1533 Transc ribed By: Laureano PAUL,Mabel flores 1533 This is privil eged, confid ential inform ation intend ed only for the provid er named. Any use or distri bution by any person other than this provid er is strict ly prohib ited. If you receiv e this report in error, please notify us immedi ately at and return the origin al report to us at the addres s above. Thank- you. [facility] [address] [place], [address] 06/25/2023 16:26:38 06/28/19 24 06/28/2023 CT, abdom en + pelvi s, w/ contr ast Patien t Name: James mary Ch ad R Unit #: [id number] Loc: DI Orderi ng Provid er: SAMANTHA CASH t #: [id number] Status : REG CLI Primar y Care Provid er: Phillip Abraham linda Date of Exam: Sex: M : 1990 Age: 33 Exam(s ) a CT:CT abdome n pelvis w Exam(s ) CT ABDOME N PELVIS W EXAM: CT ABDOME N PELVIS W CLINIC AL HISTOR Y: R10.32 LLQ pain x3 days, r/o divert iculit is TECHNI QUE: Imagin g Protoc ol: Axial comput ed tomogr aphy images with zamora l and sagitt al reform atted images were create d and review ed. CONTRA ST MATERI AL: Intrav enous: Omnipa que [address] volume :100 mL Oral: Yes COMPAR QUAN: CT ABD PELVIS WITH CONTRA ST from 2010 FINDIN GS: The patien t vomite d during the examin ation. The patien t was rescan ezra withou t additi onal IV contra st. ABDOME N: Lung Bases: Normal where visual ized. Liver: There is diffus e decrea sed attenu ation of the liver consis tent with fatty infilt ration . No measur able mass. Portal , Superi or Mesent ian, and Spleni c Veins: Unrema rkable . Gallbl adder and Biliar y Tract: No radiod ense calcul us or dilati on. Pancre as: Normal densit y, no abnorm al calcif icatio ns or inflam matory proces s. Spleen : Normal . Adrena ls: No masses seen. Kidney s: Normal size, contou r and axis. No radiod ense stones or obstru ctive uropat hy. No masses seen. Abdomi nal Aorta: Abdomi nal portio n non-di lated. Bowel: No obstru ction or bowel wall thicke rayo. Append ix is unrema rkable . Perito shaji Cavity : No ascite s, collec tion or mesent ian inflam matory respon se. No free air. Lymph Nodes: Within normal limits . Bones: Within normal limits for the patien t's age. Soft Tissue s: Unrema rkable . PELVIS : Bladde r: Symmet miller disten tion, no gross wall thicke rayo. Reprod uctive Organs : Unrema rkable as visual ized. Lymph Nodes: Within normal limits . Bones: Within normal limits for the patien t's age. IMPRES RADHA: 1. Examin ation limite d by key jha motion artifa ct. 2. No acute abdomi nal or pelvic proces s. 3. Hepati c steato sis. RADIAT ION DOSE DELIVE RED: 2,528. 07mGy. cm Total DLP DATA REPOSI TORY: All CT scans at this facili ty are submit jackie to the [facility] Radiol ogy Data Regist ry (NRDR) Dose Index Regist ry (DIR) with the [place] [employer] Radiol ogy (ACR). RADIAT ION OPTIMI ZATION : All CT scans at this [facility] ty use at least one of these dose optimi zation techni ques: automa jackie exposu re contro l; mA and/or kV adjust ment per key jha size (inclu javy target ed exams where dose is matche d to clinic al indica tion); or iterat manuel recons tructi on. 0415-0 019: Total DLP = 0.00 mGy-cm Ordere d By: SAMANTHA CASH CC: ------ ------ ------ ------ ------ ------ ------ ------ ------ ------ ------ ------ ---- Dictat ed By: Lb Campbell M.D. 1504 1504 Transc ribed By: Lb Campbell 1504 This is privil eged, confid ential inform ation intend ed only for the provid er named. Any use or distri bution by any person other than this [facility] er is strict ly prohib ited. If you receiv e this report in error, please notify us immedi ash at [phone] and return the origin al report to us at the addres s above. Thank- you. [email or web address] [facility] [address], [place], [address], 06/28/2023 19:35:09 11/29/19 24 10/07/2021 XR, knee No observ ation record ed. Not Available 11/28 04:06:58 11/29/19 24 12/01/2021 imagi ng/di agnos tic resul t No observ ation record ed. Not Available 11/28 04:06:59 11/29/19 24 02/26/2020 CT, chest No observ ation record ed. Not Available 11/28 04:07:00 11/29/19 24 10/07/2021 XR, knee No observ ation record ed. Not Available 11/28 04:07:01 11/29/19 24 11/06/2019 US, scrot um No observ ation record ed. Not Available 11/28 04:07:09 11/29/19 24 06/13/2018 imagi ng/di agnos tic resul t No observ ation record ed. Not Available 11/28 04:07:10 11/29/19 24 10/31/2018 imagi ng/di agnos tic resul t No observ ation record ed. Not Available 11/28 04:07:11 11/29/19 24 09/10/2021 imagi ng/di agnos tic resul t No observ ation record ed. Not Available 11/28 04:07:12 Result Notes Documentation Provider Name and Address Organization Details Recorded Time Ct, Abdomen + Pelvis, W/ Contrast : Patient Name: Da Lewis Unit #: [id number] Loc: DI Ordering Provider: ESTELA CASH Status: REG CLI Primary Care Provider: Marika Abraham Date of Exam: 06/28/23 Sex: M : 1990 Age: 33 Exam(s) a CT:CT abdomen pelvis w Exam(s) CT ABDOMEN PELVIS W EXAM: CT ABDOMEN PELVIS W CLINICAL HISTORY: R10.32 LLQ pain x3 days, r/o diverticulitis TECHNIQUE: Imaging Protocol: Axial computed tomography images with coronal and sagittal reformatted images were created and reviewed. CONTRAST MATERIAL: Intravenous: Omnipaque 350 Contrast volume:100 mL Oral: Yes COMPARISON: CT ABD PELVIS WITH CONTRAST from 02/23/2011 FINDINGS: The patient vomited during the examination. The patient was rescanned without additional IV contrast. ABDOMEN: Lung Bases: Normal where visualized. Liver: There is diffuse decreased attenuation of the liver consistent with fatty infiltration. No measurable mass. Portal, Superior Mesenteric, and Splenic Veins: Unremarkable. Gallbladder and Biliary Tract: No radiodense calculus or dilation. Pancreas: Normal density, no abnormal calcifications or inflammatory process. Spleen: Normal. Adrenals: No masses seen. Kidneys: Normal size, contour and axis. No radiodense stones or obstructive uropathy. No masses seen. Abdominal Aorta: Abdominal portion non-dilated. Bowel: No obstruction or bowel wall thickening. Appendix is unremarkable. Peritoneal Cavity: No ascites, collection or mesenteric inflammatory response. No free air. Lymph Nodes: Within normal limits. Bones: Within normal limits for the patient's age. Soft Tissues: Unremarkable. PELVIS: Bladder: Symmetric distention, no gross wall thickening. Reproductive Organs: Unremarkable as visualized. Lymph Nodes: Within normal limits. Bones: Within normal limits for the patient's age. IMPRESSION: 1. Examination limited by patient motion artifact. 2. No acute abdominal or pelvic process. 3. Hepatic steatosis. RADIATION DOSE DELIVERED: 2,528.07mGy.cm Total DLP DATA REPOSITORY: All CT scans at this facility are submitted to the National Radiology Data Registry (NRDR) Dose Index Registry (DIR) with the [employer] (ACR). RADIATION OPTIMIZATION: All CT scans at this facility use at least one of these dose optimization techniques: automated exposure control; mA and/or kV adjustment per patient size (includes targeted exams where dose is matched to clinical indication); or iterative reconstruction. 2220-3544: Total DLP = 0.00 mGy-cm Ordered By: ESTELA CASH CC: - Dictated By: Lb Campbell M.D. 06/28/23 1504 06/28/23 1504 Transcribed By: Lb Campbell 06/28/23 1504 This is privileged, confidential information intended only for the provider named. Any use or distribution by any person other than this provider is strictly prohibited. If you receive this report in error, please notify us immediately at [phone] and return the original report to us at the address above. Thank-you. YENNIFER OBRIEN [address], [place], [address], [facility] 06/28/2023 19:35:09 Problems Name Problem SNOMED Code Status Onset Date Resolution Date Notes Provider Name and Address Organization Details Recorded Time Mild intermit tent asthma 406892564 Active 2010 Problem Code: J45.20; Problem Code Type: ICD-10; Not Available [facility] 3 03:53:12 Mood disorder 08759838 Active 2010 Problem Code: F39; Problem Code Type: ICD-10; Not Available [facility] 3 03:53:12 Fracture of lumbar spine 668116707 Active 2008 Problem Code: S32.009; Problem Code Type: ICD-10; Not Available [facility] 3 03:53:12 Disorder of psycholo gical developm ent 487721515 Active 201506/27/19 21 - Comments only - 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 Pt lives alone Problem Code: F88; Problem Code Type: ICD-10; Not Available [facility] 3 03:53:12 Adult health examinat ion Active 2016 Problem Code: Z00.00; Problem Code Type: ICD-10; Not Available [facility] 3 03:53:12 Allergic rhinitis 94397577 Active 2016 Problem Code: J30.9; Problem Code Type: ICD-10; Not Available [facility] 3 03:53:12 Oppositi onal defiant disorder 75497317 Active 2017 Problem Code: F91.3; Problem Code Type: ICD-10; Not Available [facility] 3 03:53:12 Hallucin ations 1078329 Active 2017 Problem Code: R44.2; Problem Code Type: ICD-10; Not Available [facility] 3 03:53:13 Temporom andibula r joint disorder 38955300 Completed 201712/17/2017 Problem Code: M26.69; Problem Code Type: ICD-10; Not Available [facility] 3 03:53:13 Temporom andibula r joint disorder 47008207 Active 2017 Problem Code: M26.69; Problem Code Type: ICD-10; Not Available [facility] 3 03:53:13 Precordi al pain 90384484 Completed 201806/22/2018 Problem Code: R07.2; Problem Code Type: ICD-10; Not Available [facility] 3 03:53:13 Low back pain 842196959 Active 201812/07/19 20 - Comments only - 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 + weakness of R gluteus medius and iliopsoa s. 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 stress fx. 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 - 4 seasons ortho: fitted w/thumb spica brace, advised voltaren gel and APAP, f/u 2-3 months prn Problem Code: M65.4; Problem Code Type: ICD-10; Not Available [facility] 3 03:53:14 Autistic disorder 943020747 Active 202105/24/19 22 - Comments only - 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 - see disabili ty evaluati on 04/2021 Problem Code: F84.0; Problem Code Type: ICD-10; Not Available [facility] 3 03:53:15 Snoring 02412701 Active 2021 Problem Code: R06.83; Problem Code Type: ICD-10; Not Available [facility] 3 03:53:15 Fatigue 19910216 Active 2021 Problem Code: R53.83; Problem Code Type: ICD-10; Not Available [facility] 3 03:53:15 Joint pain 58870284 Active 2021 Problem Code: M25.50; Problem Code Type: ICD-10; Not Available [facility] 3 03:53:15 Pain of joint of knee 9908352971 Active 2021 Problem Code: M25.569; Problem Code Type: ICD-10; Not Available [facility] 3 03:53:15 Hypertro phic conditio n of skin 46731522 Active 2021 Problem Code: L91.8; Problem Code Type: ICD-10; Not Available [facility] 3 03:53:16 Dementia 60909376 Active 2021 Problem Code: F03.90; Problem Code Type: ICD-10; Not Available [facility] 3 03:53:16 Pain of left wrist 63281716409 9102 Active 202102/26/20 22 - Comments only - Marika Abraham [place] [facility] [place] Clinical exam notes wrist pain that is diffusel y TTP over the scapholu colby interval and with flexion/ extensio n of the wrist. Although there is no evidence of cystic change on x-ray, there is a cystic lesion on MR of the left wrist. 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 Another less common but serious diagnosi s would be Kienbock s disease (AVN of lunate). Ulnar impactio n is unlikely given minimal/ no discomfo rt with ulnar deviatio n of wrist or evidence of ulnar impactio n on MR. Recommen d immobili zation with a short arm cast of left wrist at today's visit to allow for soft tissue rest. Recommen d 1 week of Aleve twice daily. We will plan to see patient back in approxim ately 4 to 5 weeks for repeat x-ray out of cast and reevalua tion. Cyst may heal spontane ously with rest, otherwis e we will consider an addition al MRI at there is progress ion of the lesion on XR or symptoms worsen. 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 Problem Code: R42; Problem Code Type: ICD-10; Not Available [facility] 3 03:53:16 Obstruct manuel sleep apnea syndrome 46306106 Active 2022 Problem Code: G47.33; Problem Code Type: ICD-10; Not Available [facility] 3 03:53:17 Pleuriti c pain 7053309 Completed 201801/11/2019 Problem Code: R07.81; Problem Code Type: ICD-10; Not Available [facility] 3 03:53:19 Lung field abnormal 925684353 Completed 201906/26/2020 Problem Code: R91.8; Problem Code Type: ICD-10; Not Available [facility] 3 03:53:20 Cough 47334918 Completed 201409/26/2015 Problem Code: R05; Problem Code Type: ICD-10; Not Available [facility] 3 03:53:21 Disorder of soft tissue 44309386 Completed 201912/07/2019 Problem Code: M70.90; Problem Code Type: ICD-10; Not Available [facility] 3 03:53:22 Developm ental academic disorder 4628976 Completed 201512/20/2017 Problem Code: F81.9; Problem Code Type: ICD-10; Not Available [facility] 3 03:53:22 Acute bronchit is 77370079 Completed 201409/26/2015 Problem Code: J20.9; Problem Code Type: ICD-10; Not Available [facility] 3 03:53:22 Headache 17349226 Completed 201612/20/2017 Problem Code: R51; Problem Code Type: ICD-10; Not Available [facility] 3 03:53:23 Arthralg ia of the ankle and/or foot 216323396 Completed 201409/26/2015 Problem Code: M25.571; Problem Code Type: ICD-10; Not Available [facility] 3 03:53:24 Pain of left testicle 74225561088 997723 Completed 201901/03/2020 Problem Code: N50.812; Problem Code Type: ICD-10; Not Available [facility] 3 03:53:24 Musculos keletal symptom 38814532 Completed 201812/07/2019 Problem Code: R29.898; Problem Code Type: ICD-10; Not Available [facility] 3 03:53:25 Anorecta l disorder 457348762 Completed 201906/26/2020 Problem Code: K62.89; Problem Code Type: ICD-10; Not Available [facility] 3 03:53:25 Dizzines s and giddines s 270717673 Completed 201409/26/2015 Problem Code: R42; Problem Code Type: ICD-10; Not Available [facility] 3 03:53:25 Pain in thoracic spine 834241079 Completed 201412/20/2017 Problem Code: M54.9; Problem Code Type: ICD-10; Not Available [facility] 3 03:53:26 Venereal disease screenin g Completed 201701/11/2019 Problem Code: Z11.3; Problem Code Type: ICD-10; Not Available [facility] 3 03:53:26 Pain in left arm 287071228 Completed 201801/11/2019 Problem Code: M79.602; Problem Code Type: ICD-10; Not Available [facility] 3 03:53:26 Hemorrho ids 65172716 Completed 201712/20/2017 Problem Code: K64.9; Problem Code Type: ICD-10; Not Available [facility] 3 03:53:27 Uncompli cated asthma 271261906 Completed 201012/09/2022 Problem Code: J45.909; Problem Code Type: ICD-10; Not Available [facility] 3 03:53:27 Hemorrha ge of rectum and anus 693070857 Completed 201812/07/2019 Problem Code: K62.5; Problem Code Type: ICD-10; Not Available [facility] 3 03:53:27 Heartbur n 07152575 Completed 201612/06/2017 Problem Code: R12; Problem Code Type: ICD-10; Not Available [facility] 3 03:53:28 Epididym itis 85939399 Completed 201509/26/2015 Problem Code: N45.1; Problem Code Type: ICD-10; Not Available [facility] 3 03:53:30 Pain in lower limb 02106176 Completed 201812/07/2019 Problem Code: M79.606; Problem Code Type: ICD-10; Not Available [facility] 3 03:53:31 Notes:*Problem Name: Varicel la 08/[address] Colin *ICD-10 Codes: *Problem Status: inactive *Comments: *Note Date: 06/15/2012 Problem Notes None recorded. Procedures Surgical History None recorded. Imaging Results Imaging Date Name Status LastModified by Organiz [facility] Details LastModified Time 06/25/2023 x-ray imaging report completed the[facility] [address] [place], [address] 06/25/2023 16:26:38 06/28/2023 CT, abdomen + pelvis, w/ contrast completed [email or web address] [facility] [address], [place], [address], 06/28/2023 19:35:09 10/07/2021 XR, knee completed Information no t available 11/29/2023 04:06:58 12/01/2021 imaging/diagn ostic result completed Information not available 11/29/2023 04:06:59 02/26/2020 CT, chest completed Information no t available 11/29/2023 04:07:00 10/07/2021 XR, knee completed Information no t available 11/29/2023 04:07:01 11/06/2019 US, scrotum completed Information n ot available 11/29/2023 04:07:09 06/13/2018 imaging/diagn ostic result completed Information not available 11/29/2023 04:07:10 10/31/2018 imaging/diagn ostic result completed Information not available 11/29/2023 04:07:11 09/10/2021 imaging/diagn ostic result completed Information not available 11/29/2023 04:07:12 Procedure Notes None recorded. Medical Equipment None Reported. Allergies No known drug allergies Medications Name Sig Start Date Stop Date Status Note LastModified by Organization Details LastModified Time cyclobenz aprine 10 mg tablet TAKE ONE TABLET BY MOUTH THREE TIMES A DAY DIRECTED FOR MUSCLE SPASM /PAIN active Not Available Not Available No t Available magnesium 500 mg tablet Take 1 tablet by mouth every night 03/[address] Wyatt Not Available Not Available Not Available cetirizin e 10 mg tablet Take 1 tablet every day by oral route. 06/27 completed Not Available Not Available Not Available naltrexon e 50 mg tablet TAKE ONE-HALF TABLET BY MOUTH EVERY MORNING FOR 7 DAYS; THEN INCREASE TO ONE-HALF TABLET BY MOUTH TWICE DAILY 06/28 completed Not Available Not Available Not Available prednison e 20 mg tablet 2 tabs daily 03/11 completed Not Available Not Available Not Available Zithromax 250 mg tablet Take 2 by mouth today, then take 1 by mouth daily x 4 days 03/11 completed Not Available Not Available Not Available Ala-Hernesto 1 % topical cream Use 2 gram once a day 02/24 completed Not Available Not Available Not Available pantopraz ole 20 mg tablet,de layed release TAKE ONE TABLET BY MOUTH EVERY MORNING active Not Available Not Available No t Available Proctofoa m 1 % topical Apply rectally BID, PRN 04/29 completed Not Available Not Available Not Available meclizine 25 mg tablet TAKE 1 TABLET BY MOUTH EVERY 8 HOURS NEEDED FOR VERTIGO 02/24 completed Not Available Not Available Not Available zolpidem 5 mg tablet TAKE ONE TO TWO TABLETS BY MOUTH NIGHT OF SLEEP STUDY IF NEEDED 02/24 completed Not Available Not Available Not Available levofloxa marco 500 mg tablet Take 1 tab by mouth daily 12/01 completed Not Available Not Available Not Available fluticaso ne propionat e 50 mcg/actua tion nasal spray,susan pension USE 1 SPRAY IN EACH NOSTRIL IN THE [facility] active Not Available Not Available No t Available doxycycli ne hyclate 100 mg tablet Take 1 tab by mouth twice daily 11/15 completed Not Available Not Available Not Available naproxen 500 mg tablet TAKE ONE TABLET BY MOUTH TWICE A DAY FOR LEFT ARM PAIN active Not Available Not Available No t Available Ventolin HFA 90 mcg/actua tion aerosol inhaler INHALE TWO PUFFS BY MOUTH EVERY 4 TO 6 HOURS NEEDED 06/27 completed Not Available Not Available Not Available Albuterol Sulfate HFA 90 mcg/Actua tion aerosol inhaler 2 PUFFS Q4-6H 2010 active Not Available Not Available Not Avai lable magnesium oxide 500 mg capsule Take 1 tab by mouth daily at bedtime [address] Wyatt Not Available Not Available Not Available omeprazol e 20 mg tablet,de layed release Take 1 tab by mouth daily on an empty stomach before first meal of day 12/31 completed Not Available Not Available Not Available Claritin Liqui-Gel 10 mg capsule Take 1 tab by mouth daily. Stop after 60 days. 03/02 completed Not Available Not Available Not Available OptiChamb er Zakia [facility] spacer USE DIRECTED 06/27 completed Not Available Not Available Not Available Contrave 8 mg-90 mg tablet,ex tended release 05/25 completed Not Available Not Available Not Available Hemmorex- HC 30 mg rectal supposito ry insert one supposit ory daily 12/31 completed Not Available Not Available Not Available Voltaren Arthritis Pain 1 % topical gel Apply to both knees BID PRN pain 2021 active Not Available Not Available Not Avai lable Vitals Date Recorded Body height Body mass index (BMI) Body weight Heart rate Systolic blood pressure Diastolic blood pressure Provider Name and Address Organization Details Last Updated DateTime 4 171.2 cm 41.2 kg/m2 117001. 37 g 76 /min 116 mm[Hg] 78 mm[Hg] KEYANNA SKINNER LPN [facility] 4 09:42:12 Date Recorded Body height Body mass index (BMI) Body weight Heart rate Systolic blood pressure Diastolic blood pressure Provider Name and Address Organization Details Last Updated DateTime 4 171.2 cm 41.4 kg/m2 528261. 56 g 64 /min 102 mm[Hg] 70 mm[Hg] KEYANNA SKINNER LPN [facility] 4 09:35:24 Date Recorded Body height Body mass index (BMI) Body weight Body temperature Oxygen saturation Oxygen saturation in Arterial blood by Pulse oximetry Heart rate Respiratory rate Systolic blood pressure Diastolic blood pressure Provider Name and Address Organization Details Last Updated DateTime 4 171.2 cm 40.9 kg/m2 415033. 39 g 97.8 [degF] 98 % 98 % 76 /min 18 /min 130 mm[Hg] 83 mm[Hg] Meredith Diane MA [facility], [facility] 4 10:59:01 Date Recorded Body height Heart rate Body mass index (BMI) Body weight Systolic blood pressure Diastolic blood pressure Provider Name and Address Organization Details Last Updated DateTime 4 171.2 cm 68 /min 40.9 kg/m2 879202. 49 g 122 mm[Hg] 84 mm[Hg] KEYANNA SKINNER LPN [facility] 4 14:02:32 Date Recorded Body height Body mass index (BMI) Body weight Heart rate Systolic blood pressure Diastolic blood pressure Provider Name and Address Organization Details Last Updated DateTime 4 171.2 cm 40.2 kg/m2 988344. 02 g 70 /min 118 mm[Hg] 72 mm[Hg] KEYANNA SKINNER LPN [facility] 4 16:07:59 Social History Question Answer Notes LastModified by Organizat ion Details LastModified Time Tobacco Smoking Status Never Smoker WILLIAM Rodriguez, [facility] 06/28/2023 11:03:12 What Was The Date Of Your Most Recent Tobacco Screening? 06/28/2023 [email or web address] Information not available 06/28/2023 Sex: Male Functional Status None recorded. Mental Status None recorded. Family History Nothing Reported Notes:*Problem: Unknown fami ly history. Da is able to tell us that his mother and father are alive but has no information re: any of his family's health status. Medical History No medical history recorded. Immunizations Vaccine Type Date Status Provider Name and Address Organization Details Recorded Time Influenza, split virus, quadrivalent, PF 03/22/2023 completed Marika nicole [facility] 03/23/2023 10:42:58 COVID-19, mRNA, LNP-S, PF, nahid-sucrose, 30 mcg/0.3 mL 03/22/2023 completed Marika nicole [facility] 03/23/2023 10:42:58 MMR 03/26/1997 completed Not Available [facility] 04:05:18 MMR 08/28/1993 completed Not Available [facility] 04:05:18 Td (adult), 2 Lf tetanus toxoid, preservative free, adsorbed 05/18/2016 completed Not Available [facility] 01/22/2023 04:05:19 DTaP, unspecified formulation 03/26/1997 completed Not Available [facility] 01/22/2023 04:05:19 DTaP, unspecified formulation 1992 completed Not Available [facility] 01/22/2023 04:05:19 DTaP, unspecified formulation 12/15/1995 completed Not Available [facility] 01/22/2023 04:05:20 DTaP, unspecified formulation 01/14/1993 completed Not Available [facility] 01/22/2023 04:05:20 DTaP, unspecified formulation 02/16/1994 completed Not Available [facility] 01/22/2023 04:05:20 meningococcal ACWY, unspecified formulation 03/28/2007 completed Not Available [facility] 01/22/2023 04:05:20 Tdap 08/02/2006 completed Not Available [facility] 04:05:21 HPV, unspecified formulation 06/05/2014 completed Not Available [facility] 01/22/2023 04:05:22 HPV, unspecified formulation 11/17/2013 completed Not Available [facility] 01/22/2023 04:05:22 HPV, unspecified formulation 12/22/2013 completed Not Available [facility] 01/22/2023 04:05:22 Influenza, split virus, quadrivalent, PF 12/30/2021 completed Not Available [facility] 01/22/2023 04:05:23 Influenza, split virus, quadrivalent, PF 01/10/2019 completed Not Available [facility] 01/22/2023 04:05:23 Influenza, split virus, quadrivalent, PF 01/30/2020 completed Not Available [facility] 01/22/2023 04:05:23 Influenza, split virus, quadrivalent, preservative 04/01/2017 completed Not Available [facility] 01/22/2023 04:05:24 COVID-19, mRNA, LNP-S, PF, 30 mcg/0.3 mL dose 07/25/2020 completed Not Available [facility] 01/22/2023 04:05:25 COVID-19, mRNA, LNP-S, PF, 30 mcg/0.3 mL dose 08/15/2020 completed Not Available [facility] 01/22/2023 04:05:25 COVID-19, mRNA, LNP-S, PF, 30 mcg/0.3 mL dose 03/05/2021 completed Not Available [facility] 01/22/2023 04:05:25 COVID-19, mRNA, LNP-S, bivalent, PF, 30 mcg/0.3 mL dose 01/13/2022 completed Not Available [facility] 01/22/2023 04:05:26 Hep B, unspecified formulation 08/02/2006 completed Not Available [facility] 01/22/2023 04:05:27 Hep B, unspecified formulation 10/12/2005 completed Not Available [facility] 01/22/2023 04:05:27 Hep B, unspecified formulation 02/09/2005 completed Not Available [facility] 01/22/2023 04:05:27 influenza, unspecified formulation 06/07/2014 completed Not Available [facility] 01/22/2023 04:05:28 polio, unspecified formulation 03/16/1997 completed Not Available [facility] 01/22/2023 04:05:29 polio, unspecified formulation 1992 completed Not Available [facility] 01/22/2023 04:05:29 polio, unspecified formulation 01/14/1993 completed Not Available [facility] 01/22/2023 04:05:30 polio, unspecified formulation 02/16/1994 completed Not Available [facility] 01/22/2023 04:05:30 Past Encounters Encounter ID Performer Location Encounter Start Date Encounter Closed Date Diagnosis/Indication Diagnosis SNOMED-CT Code Diagnosis ICD10 Code [id number] [address] [address] 02/24/2023 10:39:30 02/24/2023 11:33:09 Mild intermittent asthma 258662659 J45.20 Pain of le ft shoulder joint 7884458264 7912869 M25.[id number] [address] 03/22/2023 14:01:15 03/22/2023 15:44:14 Mild intermittent asthma 194855796 J45.20 Pain of le ft shoulder joint 6620655016 1143115 M25.512 Active or passive immunization 010524507 Z23 Burning sensation 739818 00 R20.8 Pain in left foot 903661 1857 90620 M79.672 Nasal congestion 8197129 0 R09.81 Adult heal th examination 383340673 Z00.00 Obesity 542373619 E66.9 Autistic d isorder of childhood onset 78171757 F84.[id number] [address] 04/27/2023 09:31:03 04/27/2023 10:16:41 Pain of left shoulder joint 3791228215 7600098 M25.512 Obesity 225969735 E66.9 Nasal congestion 6066065 0 R09.[id number] [address] 05/26/2023 09:17:12 05/26/2023 11:01:20 Nasal congestion 73642681 R09.81 Obesity 661044015 E66.9 Pain of le ft shoulder joint 1766842530 1334189 M25.512 Autism spe ctrum disorder 57719810 F84.0 Vertigo 583106417 R42 [id number] [facility] [address] [address] 06/28/2023 10:37:54 06/28/2023 12:03:44 Left lower quadrant pain 221024388 R10.[id number] [address] 06/29/2023 13:37:59 06/29/2023 14:41:21 Spasm 44861311 R25.[id number] [address] 07/12/2023 15:51:40 07/12/2023 16:34:27 Spasm 71940614 R25.2 Health Concerns Section Related Observation LastModified by Organization Detai ls LastModified Time None Recorded Concern Status LastModified by Organization Details LastModified Time None Recorded Advance Directives Directive None Recorded Payers Encounter Date Sequence Insurance Name Policy Number Policy Reynoso Covered Member ID Reynoso Member ID Guarantor Name 04/27/2023 1 [facility] (MEDICAID) Da Lewis [id number] Da Lewis 05/26/2023 1 [facility] (MEDICAID) Da Lewis [id number] Da Lewis 06/28/2023 1 [facility] (MEDICAID) Da Trent Cleverley [id number] Da R Cleverley 06/29/2023 1 [facility] (MEDICAID) Da R Cleverley [id number] Da R Cleverley 07/12/2023 1 [facility] (MEDICAID) Da Trent Rigoverley [id number] Da Trent Joshua Notes Date Note Type Note Provider Name and Address Organization Details Recorded Time 04/27/2023 text/html HPI Notes: 32 yr old man here for f/u L shoulder pain, obesity, nasal congestion. HX: developed acutely left posterior shoulder pain along with left arm pain and left sided neck pain. He tried using ibuprofen and ice and Biofreeze without relief, hot showers seem to help. No history of injury. Also reporting increased mucus, thought it was his asthma that was acting up? although his PFTs were negative and normal, reports daily increased mucus- no treatments tried. Coughs up mucus, no overt shortness of breath, no wheezing. Left shoulder pain improved since going to physical therapy and doing home exercise. Today 04/27/2023 patient reports that his shoulder pain is improving going to physical therapy- he is also doing home exercise. He started going to the gym? started 3 days a week but it caused too much fatigue so he is going 2 days a week working out on the treadmill for about 8 minutes at a time and using the weights and nautilus equipment. He feels he is getting stronger and has improved posture between PT in the gym. He would like to discuss weight loss medication. Marika nicole [place] - [facility]. 04/27/2023 16:15:53 05/26/2023 text/html HPI Notes: 32 yr old man here for f/u L shoulder pain, obesity, nasal congestion. HX: developed acutely left posterior shoulder pain along with left arm pain and left sided neck pain. He tried using ibuprofen and ice and Biofreeze without relief, hot showers seem to help. No history of injury. Also reporting increased mucus, thought it was his asthma that was acting up? although his PFTs were negative and normal, reports daily increased mucus- no treatments tried. Coughs up mucus, no overt shortness of breath, no wheezing. Left shoulder pain improved since going to physical therapy and doing home exercise. -04/27/2023 patient reports that his shoulder pain is improving going to physical therapy- he is also doing home exercise. He started going to the gym? started 3 days a week but it caused too much fatigue so he is going 2 days a week working out on the treadmill for about 8 minutes at a time and using the weights and nautilus equipment. He feels he is getting stronger and has improved posture between PT in the gym. He would like to discuss weight loss medication. Today: 05/26/23: L Shoulder pain has almost completely resolved going to physical therapy, he is doing home exercise. He does report now getting these electric shocks down his arm into his left hand since working with physical therapy, denies muscle weakness or numbness. He was [place] [facility] [place] according to his refrigeration brazer/solderer Alvino several recommendations were made regarding him meeting with neurology to rule out seizures due to his history of vertigo that also can occur with blood draws, they also made reference to meeting with a paintings restorer for his chronic pain. He did find his oral appliance and is now treating his AKUA appropriately. He continues to go to the gym a couple times a week using the treadmill and Nautilus equipment. He is on the autism spectrum, lives independently and [facility] in an apartment, has a refrigeration brazer/solderer through [facility] mental health services. He does not see psychiatry. Marika nicole, [place] - [facility], [facility]. 05/26/2023 15:21:15 06/28/2023 text/html HPI Notes: Patie nt with sudden onset LLQ pain 3 days ago, while wiping equipment at gym after exercising. He felt movement inside intestines with severe pain, making it difficult to stand up. Was seen at [facility] ED due to symptoms. CXR performed, WNL. Advised to take ibuprofen/tylenol, which he has not been able to take due to not having available at home. He is still having ongoing LLQ discomfort, that can occasionally radiate to RLQ. Reports no change in chronic back pain. Denies any fevers. Denies any testicular swelling. Reports normal bowel movements, and passing flatus. Denies any diarrhea or constipation. Reports last BM this AM, was solid, but no straining. No blood or mucous in stool. He does report some epigastric burning/heartburn, but no regurg/reflux. Reports nausea, but no vomiting. He reports he is eating normal meals. He reports he is urinating more frequently than normal, waking up to 6 times Ramiro evening before going to bed, and increased frequency 2 days ago. Denies any dysuria. Denies any rectal pain. Denies any known history of diverticulitis. Denies issues with ongoing constipation. Upon review of chart, did have colonoscopy 11/2018, with only grade 1 internal hemorrhoids, and no diverticula documented. ESTELA CASH, YENNIFER [address], [place], [address], [facility]. 06/28/2023 12:16:51 06/29/2023 text/html HPI Notes: no te documentation 06/28/23 : Patient with sudden onset LLQ pain 3 days ago, while wiping equipment at gym after exercising. He felt movement inside intestines with severe pain, making it difficult to stand up. Was seen at [facility] ED due to symptoms. CXR performed, WNL. Advised to take ibuprofen/tylenol, which he has not been able to take due to not having available at home. He is still having ongoing LLQ discomfort, that can occasionally radiate to RLQ. Reports no change in chronic back pain. Denies any fevers. Denies any testicular swelling. Reports normal bowel movements, and passing flatus. Denies any diarrhea or constipation. Reports last BM this AM, was solid, but no straining. No blood or mucous in stool. He does report some epigastric burning/heartburn, but no regurg/reflux. Reports nausea, but no vomiting. He reports he is eating normal meals. He reports he is urinating more frequently than normal, waking up to 6 times Ramiro evening before going to bed, and increased frequency 2 days ago. Denies any dysuria. Denies any rectal pain. Denies any known history of diverticulitis. Denies issues with ongoing constipation. Upon review of chart, did have colonoscopy 11/2018, with only grade 1 internal hemorrhoids, and no diverticula documented. 06/28/2023; CMP, CBC, urinalysis, CRP unremarkable Today 06/30/2023 [facility] visit; patient reports the pain is not as severe as it was when he initially had his symptoms. He is getting heartburn from taking the naproxen once a day. He continues to report this episodic pain in the left lower quadrant. He said that right before it happened he was using the abdominal machine at the gym (machine requires you take your hands behind her head and pull down wts toward your lap -40 pounds? he did 3 sets of 6. It was right after that when he leaned over to clean the machine that he had pain, he denies any change in bowel or bladder no difficulty breathing no nausea vomiting. Denies hernia. 06/28/[address] scan at [facility] shows no acute process, only abnormality is fatty liver. Marika nicole PR - [facility]. 06/30/2023 17:02:37 07/12/2023 text/html HPI Notes: 33-year-old man here for follow-up muscle pain HX:UC note documentation 06/28/23 : Patient with sudden onset LLQ pain 3 days ago, while wiping equipment at gym after exercising. He felt movement inside intestines with severe pain, making it difficult to stand up. Was seen at [facility] ED due to symptoms. CXR performed, WNL. Advised to take ibuprofen/tylenol, which he has not been able to take due to not having available at home. He is still having ongoing LLQ discomfort, that can occasionally radiate to RLQ. Reports no change in chronic back pain. Denies any fevers. Denies any testicular swelling. Reports normal bowel movements, and passing flatus. Denies any diarrhea or constipation. Reports last BM this AM, was solid, but no straining. No blood or mucous in stool. He does report some epigastric burning/heartburn, but no regurg/reflux. Reports nausea, but no vomiting. He reports he is eating normal meals. He reports he is urinating more frequently than normal, waking up to 6 times Ramiro evening before going to bed, and increased frequency 2 days ago. Denies any dysuria. Denies any rectal pain. Denies any known history of diverticulitis. Denies issues with ongoing constipation. Upon review of chart, did have colonoscopy 11/2018, with only grade 1 internal hemorrhoids, and no diverticula documented. 06/28/2023; CMP, CBC, urinalysis, CRP unremarkable 06/30/2023 [facility] visit; patient reports the pain is not as severe as it was when he initially had his symptoms. He is getting heartburn from taking the naproxen once a day. He continues to report this episodic pain in the left lower quadrant. He said that right before it happened he was using the abdominal machine at the gym (machine requires you take your hands behind her head and pull down wts toward your lap -40 pounds? he did 3 sets of 6. It was right after that when he leaned over to clean the machine that he had pain, he denies any change in bowel or bladder no difficulty breathing no nausea vomiting. Denies hernia. 06/28/[address] scan at [facility] shows no acute process, only abnormality is fatty liver. today 07/12/2023 patient says the pain is almost completely gone- He only has a very mild discomfort in the left lower quadrant, denies any GI symptoms no urinary symptoms. He has lost a few more pounds. 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 MELYSSA Maier - [facility]. 07/13/2023 09:51:21
--- OUTSIDE RECORDS SUMMARY | 2024-01-21 00:50 | XMS_ITS | Encounter Summary ---
Author Organization [facility] Address One [facility] [place] [address] Care Team Providers Care Office Machines Wirer Name Role Phone Anum Perez APRN Primary Care Provider [phone] Encounter Details Date Type Department Care Team (Latest Contact Info) Description 02/24/2022 2:10 PM EST - 02/24/2022 11:59 PM EST Hospital Encounter XRay at [address] [place] [address] Pain in left wrist Discharge Disposition: Home Social History Tobacco Use Types Packs/Day Years Used Date Smoking Tobacco: Never Smokeless Tobacco: Never Sex and Gender Information Value Date Recorded Sex Assigned at Not on file Gender Identity Not on file Sexual Orientation Not on file documented as of this encounter Medications at Time of Discharge Medication Sig Dispensed Refills Start Date End Date diclofenac (Voltaren) 1 % Gel APPLY TOPICALLY TO BOTH KNEES TWICE DAILY NEEDED FOR PAIN 08/26/2021 naproxen (NAPROSYN) 500 mg Tablet TK 1 T PO BID WF PRF PAIN 11/06/2019 albuterol (PROVENTIL HFA;VENTOLIN HFA) 90 mcg/Actuation inhaler Inhale 2 puffs into the lungs every 4 hours as needed. Use with spacer hydrocortisone 1 % Cream KAILA ON THE AREA SURROUNDING THE ANUS ONCE DAILY FOR 14 DAYS 02/01/2020 3 documented as of this encounter Plan of Treatment Not on file documented as of this encounter Procedures Procedure Name Priority Date/Time Associated Diagnosis Comments XR WRIST 3 VIEWS LEFT Routine 02/24/2022 2:22 PM EST Pain in left wrist documented in this encounter Results * XR Wrist 3 Views Left (02/24/2022 2:22 PM EST) Anatomical Region Laterality Modality Left Digital Radiogra phy Impressions 02/24/2022 4:15 PM EST No fracture or sclerosis of the lunate. Known cyst not visualized radiographically. Thank you for letting us participate in the care of this patient. ??If you are a health care provider and have any questions regarding this report, please contact the number below. ??For patients who have questions please contact the health director career that requested your imaging first. ? Narrative 02/24/2022 4:15 PM EST EXAMINATION: XR WRIST 3 VIEWS LEFT CLINICAL HISTORY: L WRIST PAIN, CYST TECHNIQUE: 3 views LEFT wrist COMPARISON: Wrist radiographs 09/10/2021 and wrist MR 12/11/2021. FINDINGS: No fracture or dislocation. Known cyst in the lunate as seen on the previous MR is not visible radiographically. No interval sclerosis or fracture of the lunate. Joint spaces are normal. Soft tissues are unremarkable. No radiopaque foreign body. Procedure Note Sheree Marquez MD - 02/24/2022 EXAMINATION: XR WRIST 3 VIEWS LEFT CLINICAL HISTORY: L WRIST PAIN, CYST TECHNIQUE: 3 views LEFT wrist COMPARISON: Wrist radiographs 09/10/2021 and wrist MR 12/11/2021. FINDINGS: No fracture or dislocation. Known cyst in the lunate as seen on theprevious MR is not visible radiographically. No interval sclerosis or fracture ofthe lunate. Joint spaces are normal. Soft tissues are unremarkable. Noradiopaque foreign body. IMPRESSION No fracture or sclerosis of the lunate. Known cyst not visualized radiographically. Thank you for letting us participate in the care of this patient. If youare a health care provider and have any questions regarding this report,please contact the number below. For patients who have questions please contactthe health director career that requested your imaging first. Eran Schmid MD IMG DX ORDERABLES documented in this encounter Visit Diagnoses Diagnosis Pain in left wrist Pain in joint, forearm documented in this encounter Care Teams Office Machines Wirer Relationship Specialty Start Date End Date Anum Perez APRN PCP - General Family Medicine 02/06/20 documented as of this encounter
--- OUTSIDE RECORDS SUMMARY | 2024-01-21 00:50 | XMS_ITS | Encounter Summary ---
Author Organization [facility] [address] Care Team Providers Care Reverberatory Furnace Supervisor Name Role Phone Anum Perez APRN Primary Care Provider [phone] Reason for Visit * Reason Comments Cognitive Problems Results Neuropsych eval Encounter Details Date Type Department Care Team (Latest Contact Info) Description 05/11/2023 3:30 PM EST Office Visit Psychiatry [place] [address] Gabriele Shell, PhD Attention deficit hyperactivity disorder (ADHD), unspecified ADHD type; Autism spectrum disorder Social History Tobacco Use Types Packs/Day Years Used Date Smoking Tobacco: Never Smokeless Tobacco: Never Alcohol Use Standard Drinks/Week Comments Not Currently 0 (1 standard drink = 0.6 oz pur e alcohol) Sex and Gender Information Value Date Recorded Sex Assigned at Not on file Gender Identity Not on file Sexual Orientation Not on file documented as of this encounter Progress Notes * Bashir Romero PsyD - 05/11/2023 3:30 PM EST CONFIDENTIAL NEUROPSYCHOLOGICAL EVALUATION FEEDBACK NOTE Patient Name: Da Lewis A#: [id number] Date of : 1990 Age: 32 years Sex: Male Referred By: Anum Perez APRN Date of Evaluation: 03/18/2023 Date of Feedback: 05/11/2023 Mr. Lewis gave permission for and was seen today via an in-person visit to discuss his 03/18/2023 [facility] neuropsychological evaluation. With his permission, his client service manager (Cesar Golden)also attended the session. A total of 40 minutes were spent providing an overview of our findings and recommendations. Variable engagement with testing as evidenced by inconsistent performance on performance validity measures was discussed, which he generally disagreed with. Mr. Lewis and his client service manager expressed understanding of the information provided. He reported ongoing memory difficulties and plans to locate his oral appliance to resume AKUA management. If you would like additional information, please do not hesitate to contact us at . The report is available in full in eD. Angie Magaña PsyD Postdoctoral Fellow in Neuropsychology Childcare Teacherpageant director documented in this encounter Plan of Treatment Not on file documented as of this encounter Visit Diagnoses Diagnosis Attention deficit hyperactivity disorder (ADHD), unspecified ADHD type Autism spectrum disorder Autistic disorder, current or active state documented in this encounter Care Teams Reverberatory Furnace Supervisor Relationship Specialty Start Date End Date Anum Perez APRN PCP - General Family Medicine 02/06/20 documented as of this encounter
--- OUTSIDE RECORDS SUMMARY | 2024-01-21 00:50 | XMS_ITS | Encounter Summary ---
Author Organization [facility] [place] [address] Care Team Providers Care Senior Education Specialist Name Role Phone Anum Perez APRN Primary Care Provider [phone] Reason for Visit * Reason Comments Follow-up Solitary bone cyst o f hand, left Encounter Details Date Type Department Care Team (Late st Contact Info) Description 12/25/2022 11:00 AM EDT Office [place] [address] Eran Schmid MD [facility] [address] [place] [address] Solitary bone cyst of hand, right; Pain in left wrist Social History Tobacco Use Types Packs/Day Years [...] - - Weight 115.9 kg (255 lb 8.2 oz) 023 10:48 AM EDT Height 176.1 cm (5' 9.33) 12/25/2022 1 0:48 AM EDT Body Mass Index 37.37 12/25/2022 10:48 AM EDT documented in this encounter Progress Notes * Eran Schmid MD - 12/25/2022 11:00 AM EDT Orthopaedic Clinic Progress Note DATE OF VISIT: 12/25/22 CHIEF COMPLAINT: Chief Complaint Patient presents with Follow-up Solitary bone cyst of hand, left HPI: Da Lewis is a 32 y.o. male patient who presents to the orthopaedic clinic for a follow-up appointment. He has been followed for left wrist pain, found to have a moderately sized cyst in the lunate on MRI. He had undergone a course of OT with multiple modalities without significant painrelief. At last visit I recommended he see Dr. Kimball for evaluation and consideration of ultrasound-guided procedures. However he states just days before that appointment his pain significantly improved. When he saw Dr. Kimball there was an ultrasound performed, scapholunate ligament attenuation noted as well as a cyst, but given his improvement procedures were deferred. He states over the past few months the pain has been quite low, certainly better than last visit, he states about a 3 out of 10. Occasionally the pain does spike he said he used to be spiking several times daily and now is elo few times a week. No new swelling erythema. No new injuries. Pain was mostly with heavy lifting, like he was lifting a recliner recently. MEDICATIONS: Current Outpatient Medications: diclofenac (Voltaren) 1 % Gel, APPLY TOPICALLY TO BOTH KNEES TWICE DAILY NEEDED FOR PAIN, Disp: , Rfl: albuterol (PROVENTIL HFA;VENTOLIN HFA) 90 mcg/Actuation inhaler, Inhale 2 puffs into the lungs every 4 hours as needed. Use with spacer , Disp: , Rfl: meclizine (Antivert) 25 mg tablet, TAKE 1 TABLET BY MOUTH EVERY 8 HOURS NEEDED FOR VERTIGO, Disp: , Rfl: naproxen (NAPROSYN) 500 mg Tablet, TK 1 T PO BID WF PRF PAIN, Disp: , Rfl: ALLERGIES: No Known Allergies PHYSICAL EXAM: Temp: -- Heart Rate: -- BP: -- Body mass index is 37.37 kg/m??. No acute distress Affect within normal limits for age Alert and oriented Speech clear and intact, appropriate for age Head atraumatic Respirations unlabored Brisk capillary refill peripheral bilateral upper extremities, warm and well perfused Left wrist examined: Sensation intact light touch throughout the hand Range of motion: Wrist extension 40 degrees, flexion 70, contralateral wrist extension 60 degrees, flexion 70 Mild to moderate tender to palpation scapholunate interval, more focally tender on the lunate, nontender scaphoid. Cummins clunk is negative Well-perfused Full composite flexion of all fingers and full active extension of all digits IMAGING: I independently reviewed x-rays today left wrist demonstrating stable position and alignment of carpal bones, no collapse of the lunate, scapholunate angle within normal. No including sclerosis. No new fractures or abnormalities noted. ASSESSMENT and PLAN: This is a 32 y.o. 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 Prior imaging and exam without amy tear or instability. We discussed again his presentation, difficult to discern for sure whether his pain is related to the cyst or other etiologies. However it has been improving consistently so much so that he deferred a procedure previously. I recommended continued observation, symptomatic treatment, and if pain persists or worsens then a return visit for consideration of ultrasound-guided procedure, injection versus aspiration. No surgical intervention at this time He has already done a course of OT and knows home exercises he may do. PLAN: -Activity as tolerated -Symptomatic treatment for pain -Splint and rest as needed If pain persists over several months or worsens, he will call to schedule a return appointment withDr. Kimball for consideration of ultrasound-guided procedure versus continued observation and or OT. If after that visit he is not improving he may call my office to schedule a visit with repeat x-rayand ongoing discussion, possible cyst curettage. All questions were answered, and the patient/family were satisfied with the discussion. They know to call sooner with any questions or concerns. Follow-up: PRN With Dr. Kimball if pain persists. If after Jigar visit pain persists/worsens, may schedule Binu visit with bilateral wrist Pencil Relay Engineer PA view (Scapholunate stress view) Eran Schmid MD, MPH Department of Orthopaedic Surgery Pediatric Orthopaedic & Hand Surgeon documented in this encounter Plan of Treatment Not on file documented as of this encounter Visit Diagnoses Diagnosis Solitary bone cyst of hand, right Pain in left wrist Pain in joint, forearm documented in this encounter Care Teams Senior Education Specialist Relationship Specialty Start Date End Date Anum Perez APRN PCP - General Family Medicine 02/06/20 documented as of this encounter
--- OUTSIDE RECORDS SUMMARY | 2024-01-21 00:50 | XMS_ITS | Encounter Summary ---
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 fellow in neuropsychology was involved in test administration, interpretation, and report development. The interpretation and integration of pertinent clinical information found in this report was directed and verified by the supervising neuropsychologist/licensed clinical psychologist. 91513: 67 minutes (1 unit) 04104: 1 hour (1 unit) 67150: 1 hour 55 minutes (2 units) 39518: 30 minutes (1 unit) 43648: 4 hours 30 minutes (9 units) Billing Code: Attention deficit hyperactivity disorder (ADHD), unspecified ADHD type [F90.9], Autism spectrum disorder [F84.0] documented in this encounter Plan of Treatment Scheduled Referrals Name Type Priority Associated Diagnoses Order Schedule Referral to Neuropsychology Outpatient Referral Routine Forgetfulness Ordered: 01/22/2022 documented as of this encounter Visit Diagnoses Diagnosis Attention deficit hyperactivity disorder (ADHD), unspecified ADHD type Autism spectrum disorder Autistic disorder, current or active state documented in this encounter Care Teams Hr Manager Relationship Specialty Start Date End Date Anum Perez APRN PCP - General Family Medicine 02/06/20 documented as of this encounter
--- OUTSIDE RECORDS SUMMARY | 2024-01-21 00:50 | XMS_ITS | Clinical Summary ---
Author Organization [facility] Address [address] [place] [address] Care Team Providers Care Community Representative Name Role Phone Unavailable Primary Care Provider Unavailabl e Immunizations Name Administration Dates Next Due Covid-19 mRNA Vaccine (PFIZE R COVID-19) PF 0.3 ml IM (12 yrs+) 08/15/2020,07/25/2020 Social History Tobacco Use Types Packs/Day Years Used Date Smoking Tobacco: Never Assessed Interpersonal Safety Answer Date Record ed Physically Hurt Never 07/25/2020 Verbally Threaten Not on file 07/25/2020 Sex and Gender Information Value Date Recorded Sex Assigned at Not on file Gender Identity Not on file Sexual Orientation Not on file Plan of Treatment Health Maintenance Due Date Last Done Comments Hepatitis C Screen 1992 Hepatitis B Vaccine (1 of 3 - 19+ 3-dose series) 2011 COVID-19 Vaccine (2022-24 season) 11/13/202205/2020, 07/25/2020
--- OUTSIDE RECORDS SUMMARY | 2024-01-21 00:50 | XMS_ITS | Referral Summary ---
Author Organization [facility] Address [address] [place] [address] Care Team Providers Care Retail Office Manager Name Role Phone Unavailable Primary Care Provider [...] Orientation Not on file Plan of Treatment Not on file
--- OUTSIDE RECORDS SUMMARY | 2024-01-21 00:50 | XMS_ITS | Encounter Summary ---
Author Organization [facility] [place] [address] Care Team Providers Care Mobile Home Mechanic Name Role Phone Anum Perez APRN Primary Care Provider [phone] Encounter Details Date Type Department Care Team (Latest Contact Info) Description 05/11/2023 Travel Social History Tobacco Use Types Packs/Day [...] on filedocumented in this encounter Care Teams Mobile Home Mechanic Relationship Specialty Start Date End Date Anum Perez APRN PCP - General Family Medicine 02/06/20 documented as of this encounter
--- OUTSIDE RECORDS SUMMARY | 2024-01-21 00:50 | XMS_ITS | Encounter Summary ---
Author Organization [facility] Address [address] [place] [address] Care Team Providers Care Molder Wax Ball Name Role Phone Unavailable Primary Care Provider Unavailabl e Encounter Details Date Type Department Care Team (Late st Contact Info) Description 08/15/2020 10:00 EDT Immunization [facility] [address] [place] [address] Social History Tobacco Use Types Packs/Day Years [...] Orders Immunization/Injection Count Last Ordered Date First Ordered Date COVID-19 MRNA VACCINE (PFIZE R COVID-19) PF 0.3 ML IM (16 YRS+) 1 08/15/2020 documented in this encounter
--- OUTSIDE RECORDS SUMMARY | 2024-01-21 00:50 | XMS_ITS | Encounter Summary ---
[facility] [place] [address] Care Team Providers Care Industrial Roofer Helper Name Role Phone Anum Perez APRN Primary Care Provider [phone] Encounter Details Date Type Department Care Team (Latest Contact Info) Description 06/16/2022 Travel Social History Tobacco Use Types Packs/Day [...] on filedocumented in this encounter Care Teams Industrial Roofer Helper Relationship Specialty Start Date End Date Anum Perez APRN PCP - General Family Medicine 02/06/20 documented as of this encounter
--- OUTSIDE RECORDS SUMMARY | 2024-01-21 00:50 | XMS_ITS | Encounter Summary ---
Author Organization [facility] [place] [address] Care Team Providers Care Frame Pulley Mortising Machine Operator Name Role Phone Anum Perez APRN Primary Care Provider [phone] Encounter Details Date Type Department Care Team (Late st Contact Info) Description 12/23/2022 Orders Only [place] [address] Eran Schmid MD [facility] [place] [address] Pain in left wrist Social History Tobacco [...] on file documented as of this encounter Results * XR Wrist 3 Views Left (12/25/2022 10:46 AM EDT) Anatomical Region Laterality Modality Left Digital Radiogra phy Impressions 12/25/2022 11:36 AM EDT 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 Thank you for letting us participate in the care of this patient. ??If you are a health care provider and have any questions regarding this report, please contact the number below. ??For patients who have questions please contact the health manager managed care that requested your imaging first. ? Electronically signed by: Skyla Zamarripa MD, [facility] ([phone]), at 12/25/2022 11:36 AM Narrative 12/25/2022 11:36 AM EDT EXAMINATION: XR WRIST 3 VIEWS LEFT CLINICAL HISTORY: Solitary bone cyst of hand, left TECHNIQUE: PA, oblique and lateral views LEFT wrist COMPARISON: Radiographs February 24, 2022 and June 16, 2022; MRI December 01, 2021 FINDINGS: No fracture, erosion or periostitis around the previously described lucency in radial aspect of lunate. No fragmentation or collapse. Remaining bones are intact with normal mineralization. Joint spacing and alignment are preserved. Soft tissues are normal. Procedure Note Skyla Zamarripa MD - 12/25/2022 EXAMINATION: XR WRIST 3 VIEWS LEFT CLINICAL HISTORY: Solitary bone cyst of hand, left TECHNIQUE: PA, oblique and lateral views LEFT wrist COMPARISON: Radiographs February 24, 2022 and June 16, 2022; MRI December 01, 2021 FINDINGS: No fracture, erosion or periostitis around the previously describedlucency in radial aspect of lunate. No fragmentation or collapse. Remaining bones are intact with normal mineralization. Joint spacing and alignment are preserved. Soft tissues are normal. IMPRESSION 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 Thank you for letting us participate in the care of this patient. If youare a health care provider and have any questions regarding this report,please contact the number below. For patients who have questions please contactthe health manager managed care that requested your imaging first. Electronically signed by: Skyla Zamarripa MD, [facility]([phone]), at 12/25/2022 11:36 AM Eran Schmid MD IMG DX ORDERABLES documented in this encounter Visit Diagnoses Diagnosis Pain in left wrist Pain in joint, forearm Pain in left wrist Pain in joint, forearm documented in this encounter Care Teams Frame Pulley Mortising Machine Operator Relationship Specialty Start Date End Date Anum Perez APRN PCP - General Family Medicine 02/06/20 documented as of this encounter
--- OUTSIDE RECORDS SUMMARY | 2024-01-21 00:50 | XMS_ITS | Encounter Summary ---
Author Organization [facility] Address [facility] [place] [address] Care Team Providers Care Supervisor Beater Room Name Role Phone Anum Perez APRN Primary Care Provider [phone] Reason for Referral * Psychiatric (Routine) - Closed Specialty Diagnoses / Procedures Referred By Trina jha Referred To Contact Psychiatry Diagnoses Forgetfulness Procedures PRO NEUROBEHAVIORAL STATUS EXAM, FIRST HOUR PRO NEUROPSYCHOLOGICAL TEST EVAL PHYS/QHP 1ST HOUR PRO NEUROPSYCHOLOGICAL TEST EVAL PHYS/QHP EA ADDL HR TC PSYCL/NRPSYCL SOFTWARE ENGINEERING SPECIALIST 2+ TEST 1ST 30 MIN TC PSYCL/NRPSYCL SOFTWARE ENGINEERING SPECIALIST 2+ TEST EA ADDL 30 MIN Anum Perez APRN [address] [place] [address] Lb Enamorado, PhD [facility] [place] [address] Referral ID Status Reason Start Date Expiration Date V isits Requested Visits Authorized [id number] Closed Consult, Test & Treat PCP Updated and/or Approved 01/22/2022 02/24/2024 1 1 Encounter Details Date Type Department Care Team (Late st Contact Info) Description 01/22/2022 Transcribe Orders eDH Incoming Referrals [phone] Anum Perez APRN [address] [place], [place] [address] Forgetfulness Social History Tobacco Use Types Packs/Day Years Used Date Smoking Tobacco: Never Smokeless Tobacco: Never Sex and Gender Information Value Date Recorded Sex Assigned at Not on file Gender Identity Not on file Sexual Orientation Not on file documented as of this encounter Plan of Treatment Scheduled Referrals Name Type Priority Associated Diagnoses Order Schedule Referral to Neuropsychology Outpatient Referral Routine Forgetfulness Ordered: 01/22/2022 documented as of this encounter Visit Diagnoses Diagnosis Forgetfulness Other general symptoms documented in this encounter Care Teams Supervisor Beater Room Relationship Specialty Start Date End Date Anum Perez APRN PCP - General Family Medicine 02/06/20 documented as of this encounter
--- OUTSIDE RECORDS SUMMARY | 2024-01-21 00:50 | XMS_ITS | Encounter Summary ---
[facility] [place] [address] Care Team Providers Care Gold Tooler Name Role Phone Anum Perez APRN Primary Care Provider [phone] Encounter Details Date Type Department Care Team (Latest Contact Info) Description 02/24/2022 Travel Social History Tobacco Use Types Packs/Day [...] on filedocumented in this encounter Care Teams Gold Tooler Relationship Specialty Start Date End Date Anum Perez APRN PCP - General Family Medicine 02/06/20 documented as of this encounter
--- OUTSIDE RECORDS SUMMARY | 2024-01-21 00:50 | XMS_ITS | Encounter Summary ---
Author Organization [facility] Address [facility] [place] [address] Care Team Providers Care Licensing And Registration Director Name Role Phone Anum Perez APRN Primary Care Provider [phone] Encounter Details Date Type Department Care Team (Latest Contact Info) Description 06/16/2022 12:25 PM EDT - 06/16/2022 11:59 PM EDT Hospital Encounter XRay at [address] [place] [address] Eran Schmid MD [facility] [place] [address] Solitary bone cyst of hand, right Discharge Disposition: Home Social History Tobacco Use Types Packs/Day Years Used Date Smoking Tobacco: Never Smokeless Tobacco: Never Sex and Gender Information Value Date Recorded Sex Assigned at Not on file Gender Identity Not on file Sexual Orientation Not on file documented as of this encounter Medications at Time of Discharge Medication Sig Dispensed Refills Start Date End Date meclizine (Antivert) 25 mg tablet TAKE 1 TABLET BY MOUTH EVERY 8 HOURS NEEDED FOR VERTIGO 03/17/2022 diclofenac (Voltaren) 1 % Gel APPLY TOPICALLY TO BOTH KNEES TWICE DAILY NEEDED FOR PAIN 08/26/2021 naproxen (NAPROSYN) 500 mg Tablet TK 1 T PO BID WF PRF PAIN 11/06/2019 albuterol (PROVENTIL HFA;VENTOLIN HFA) 90 mcg/Actuation inhaler Inhale 2 puffs into the lungs every 4 hours as needed. Use with spacer documented as of this encounter Plan of Treatment Not on file documented as of this encounter Procedures Procedure Name Priority Date/Time Associated Diagnosis Comments XR WRIST 3 VIEWS LEFT Routine 06/16/2022 12:37 PM EDT Solitary bone cyst of hand, right documented in this encounter Results * XR Wrist 3 Views Left (06/16/2022 12:37 PM EDT) Anatomical Region Laterality Modality Left Digital Radiogra phy Impressions 06/16/2022 3:09 PM EDT 1. ??No acute fracture. 2. ??Normal osseous alignment 3. ??The bright T2 signal in the lunate seen on MRI corresponds to a focus of radiolucency on today's radiograph. Findings likely represents a bone cyst. 4. ??No findings of Kienbock's. Thank you for letting us participate in the care of this patient. ??If you are a health care provider and have any questions regarding this report, please contact the number below. ??For patients who have questions please contact the health career resource specialist that requested your imaging first. ? Electronically signed by: Petra Jean-Baptiste MD, [facility] ([phone]), at 06/16/2022 3:09 PM Narrative 06/16/2022 3:09 PM EDT EXAMINATION: XR WRIST 3 VIEWS LEFT CLINICAL HISTORY: Followup wrist pain, continued pain with prior lunate cyst on mri, eval sclerosis, collapse, change from prior, entered by ordering service TECHNIQUE: LEFT wrist, 3 view[s] COMPARISON: Radiographs, February 2022 and MRI, November 2021. FINDINGS: Bones * ??Lunate-the bright T2 signal seen on MRI corresponds to a focus of radiolucency on radial aspect of lunate. No bone destruction seen. Normal density of lunate without findings of Kienbock's, fragmentation or collapse. * ??Remaining bones-normal. Joints Radiocarpal and distal radioulnar joint-congruent Soft tissues No soft tissue air or foreign body detected. Procedure Note Petra Jean-Baptiste MD - 06/16/2022 EXAMINATION: XR WRIST 3 VIEWS LEFT CLINICAL HISTORY: Followup wrist pain, continued pain with prior lunatecyst on mri, eval sclerosis, collapse, change from prior, entered byordering service TECHNIQUE: LEFT wrist, 3 view[s] COMPARISON: Radiographs, February 2022 and MRI, November 2021. FINDINGS: Bones * Lunate-the bright T2 signal seen on MRI corresponds to a focus of radiolucency on radial aspect of lunate. No bone destruction seen.Normal density of lunate without findings of Kienbock's, fragmentation orcollapse. * Remaining bones-normal. Joints Radiocarpal and distal radioulnar joint-congruent Soft tissues No soft tissue air or foreign body detected. IMPRESSION 1. No acute fracture. 2. Normal osseous alignment 3. The bright T2 signal in the lunate seen on MRI corresponds to a focusof radiolucency on today's radiograph. Findings likely represents a bonecyst. 4. No findings of Kienbock's. Thank you for letting us participate in the care of this patient. If youare a health care provider and have any questions regarding this report,please contact the number below. For patients who have questions please contactthe health career resource specialist that requested your imaging first. Electronically signed by: Petra Jean-Baptiste MD, [facility]([phone]), at 06/16/2022 3:09 PM Eran Schmid MD IMG DX ORDERABLES documented in this encounter Visit Diagnoses Diagnosis Solitary bone cyst of hand, right documented in this encounter Care Teams Licensing And Registration Director Relationship Specialty Start Date End Date Anum Perez APRN PCP - General Family Medicine 02/06/20 documented as of this encounter
--- OUTSIDE RECORDS SUMMARY | 2024-01-21 00:50 | XMS_ITS | Encounter Summary ---
Author Organization [facility] [place] [address] Care Team Providers Care Induction Furnace Operator Name Role Phone Anum Perez APRN Primary Care Provider [phone] Reason for Visit * Reason Comments Follow-up Solitary bone cyst o f hand, left (PT did not help) Encounter Details Date Type Department Care Team (Late st Contact Info) Description 06/16/2022 11:00 AM EDT [place] [address] Eran Schmid MD [facility] [place] [address] Solitary bone cyst of hand, right Social History Tobacco Use Types Packs/Day Years [...] - Inhaled Oxygen Concentration - - Weight 117.9 kg (259 lb 14.8 oz) 2022 10:56 AM EDT Height 171.5 cm (5' 7.52) 06/16/2022 1 0:56 AM EDT Body Mass Index 40.08 06/16/2022 10:56 AM EDT documented in this encounter Progress Notes * Eran Schmid MD - 06/16/2022 11:00 AM EDT Orthopaedic Clinic Progress Note DATE OF VISIT: 06/16/22 CHIEF COMPLAINT: Chief Complaint Patient presents with ??? Follow-up Solitary bone cyst of hand, left (PT did not help) HPI: Da Lewis is a 32 y.o. male patient who presents to the orthopaedic clinic for a follow-up appointment. Followed for Left wrist pain in the setting on a lunate cyst found on MRI. Since last visit, he did begin OT, approx 8-9 visits, with multiple modalities for pain, and also home exercises. He had transient pain relief with this but pain recurs. Dorsal wrist pain radiating proximally and distally. No numbness/tingling. No new injuries. MEDICATIONS: Current Outpatient Medications: ??? diclofenac (Voltaren) 1 % Gel, APPLY TOPICALLY TO BOTH KNEES TWICE DAILY NEEDED FOR PAIN, Disp: , Rfl: ??? naproxen (NAPROSYN) 500 mg Tablet, TK 1 T PO BID WF PRF PAIN, Disp: , Rfl: ??? albuterol (PROVENTIL HFA;VENTOLIN HFA) 90 mcg/Actuation inhaler, Inhale 2 puffs into the lungs every 4 hours as needed. Use with spacer , Disp: , Rfl: ??? meclizine (Antivert) 25 mg tablet, TAKE 1 TABLET BY MOUTH EVERY 8 HOURS NEEDED FOR VERTIGO, Disp: , Rfl: ALLERGIES: No Known Allergies PHYSICAL EXAM: Temp: -- Heart Rate: -- BP: -- Body mass index is 40.08 kg/m??. No acute distress Affect within normal limits for age Alert and oriented Speech clear and intact, appropriate for age Head atraumatic Respirations unlabored Brisk capillary refill peripheral bilateral upper extremities, warm and well perfused LUE examined: Sensation intact to light touch throughout He has focal tenderness to palpation over the lunate as well as scapholunate He however also has pain and tenderness proximally at the DRUJ and distal forearm interosseous space Full pronation supination No DRUJ instability Full symmetric wrist extension and flexion, not limited compared to contralateral 5 out of 5 strength EPL, FPL, EDC, DI O, wrist extension, wrist flexion No significant swelling erythema or ecchymosis IMAGING:) Reviewed x-rays today left wrist with no interval additional changes including sclerosis,degenerative changes, fragmentation or collapse or increased visualization of the cyst inlunate. ASSESSMENT and PLAN: This is a 32 y.o. male seen in follow-up for left wrist pain in the setting oflunate bone cyst found on MRI. His x-rays continue to be negative though he has continued pain which has persisted despite hand therapy and initial rest. We discussed treatment options including continued observation, continued OT, versus steroid injection. At this time after discussion of options he would like to proceed with a steroid injection trial, Iwould recommend radiocarpal injection to begin for both diagnostic and therapeutic purposes. We discussed potential transient nature of injection or persistence of symptoms in which case we may trial midcarpal injection but at the moment we will see how he responds. PLAN: -Referral to Dr. Talha Kimball for examination and consideration of an ultrasound- guided radiocarpal injection. Potential for midcarpal steroid injection. His symptoms today seem more proximal. -Activity as tolerated until then -He may continue OT as needed for modalities of pain management. All questions were answered, and the patient/family were satisfied with the discussion. They know to call sooner with any questions or concerns. Follow-up: He may call my office to schedule an appointment with me 4 to 6 weeks after steroid injection of the wrist if his symptoms persist to consider another injection versus surgical intervention. I do recommend at least a 6-month follow-up x-ray of the left wrist. Erna cShmid MD, MPH Department of Orthopaedic Surgery Pediatric Orthopaedic & Hand Surgeon documented in this encounter Plan of Treatment Scheduled Orders Name Type Priority Associated Diagnoses Orde r Schedule XR Wrist 3 Views Left Imaging Routine Solitary bone cyst of hand, right Expected: 06/16/2022, Expires: 12/16/2022 documented as of this encounter Results * [...] who have questions please contact the health childcare teacher that requested your imaging first. ? Electronically signed by: Petra Jean-Baptiste MD, [facility] ([phone]), at 06/16/2022 3:09 PM Narrative 06/16/2022 3:09 [...] patients who have questions please contactthe health childcare teacher that requested your imaging first. Electronically signed by: Petra Jean-Baptiste MD, [facility]([phone]), at 06/16/2022 3:09 PM Eran Schmid MD IMG DX ORDERABLES documented in this encounter Visit Diagnoses Diagnosis Solitary bone cyst of hand, right Solitary bone cyst of hand, right documented in this encounter Care Teams Induction Furnace Operator Relationship Specialty Start Date End Date Anum Perez, SABAS PCP - General Family Medicine 02/06/20 documented as of this encounter
--- OUTSIDE RECORDS SUMMARY | 2024-01-21 00:50 | XMS_ITS | Encounter Summary ---
Author Organization [facility] Address [facility] [place] [address] Care Team Providers Care Outreach Librarian Name Role Phone Anum Perez APRN Primary Care Provider [phone] Reason for Visit * Occupational Therapy (Routine) - Closed Specialty Diagnoses / Procedures Referred By Trina jha Referred To Contact Occupational Therapy Diagnoses Solitary bone cyst of hand, right Eran Schmid MD [facility] [place] [address] [facility] [address] [place] [address] Referral ID Status Reason Start Date Expiration Date V isits Requested Visits Authorized [id number] Closed Evaluate and Treat 02/24/2022 02/24/2023 12 12 Encounter Details Date Type Department Care Team (Late st Contact Info) Description 02/24/2022 4:00 PM EST Office [place] [address] Stephanie Cardozo OT Solitary bone cyst of hand, left Social History Tobacco Use Types Packs/Day Years Used Date Smoking Tobacco: Never Smokeless Tobacco: Never Sex and Gender Information Value Date Recorded Sex Assigned at Not on file Gender Identity Not on file Sexual Orientation Not on file documented as of this encounter Progress Notes * Stephanie Cardozo OT - 02/24/2022 4:00 PM EST OCCUPATIONAL THERAPY [place] [facility] [place] Referral Source: Dr. Binu Reyez MD Follow-up: As needed Total Treatment time: 15 Minutes Timed Code Treatment Time: 0minutes OCCUPATIONAL PROFILE: Da Lewis is a 31 y.o. year old Right hand dominant person who is seentoday following 4 weeks of a short arm cast to decrease movement and pain in his left wrist. He hasa cyst embedded in his lunate that may be causing increased discomfort with his wrist. He is ready to progress to active ROM and light use of his left wrist. He presents with very good early motion of his wrist following cast removal but would benefit from local OT for a supervised program for progression of use to avoid increased pain . Da Lewis is referred to Occupational Therapy for instructions of a home program and provide contacts for local OT Patient presents today alone. They will be receiving outpatient therapy. Date of onset of symptoms: Several months Date of surgery: na Pertinent History and/or Co-morbidities: 1. 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 provided today. He will contact for follow up Range of Motion Exercises: digit ext/flexion and wrist ROM in all planes of motion Provided with referral and local contact CLINICAL DECISION MAKING: aD Lewis is able to independently verbalize and demonstrate the recommended home program following instructions today. Da Lewis has good to fair potential for gains with therapy/home program use. Patient knows to call with any questions or concerns. Patient's therapy plan is local OT. Short Term Goals (to be met by end of the visit today): Date Goal Met: Today 2. Da Lewis will be independent with home exercises as evident with demonstration in therapy. Goal Status: Meets PLAN: Therapeutic exercises to increase functional mobility (X) Da Lewis participated in the evaluation, collaborated on treatment goals, and agrees tothe treatment plan. documented in this encounter Plan of Treatment Scheduled Referrals Name Type Priority Associated Diagnoses Order Schedule Referral to Occupational Therapy Outpatient Referral Routine Solitary bone cyst of hand, left Ordered: 02/24/2022 documented as of this encounter Visit Diagnoses Diagnosis Solitary bone cyst of hand, left documented in this encounter Care Teams Outreach Librarian Relationship Specialty Start Date End Date Anum Perez APRN PCP - General Family Medicine 02/06/20 documented as of this encounter
--- OUTSIDE RECORDS SUMMARY | 2024-01-21 00:50 | XMS_ITS | Clinical Summary ---
Author Organization [facility] Address [facility] [place] [address] Care Team Providers Care Line Closer Name Role Phone Anum Perez APRN Primary Care Provider [phone] Allergies No known active allergies Medications Medication Sig Dispensed Refills Start Date End Date Status albuterol (PROVENTIL HFA;VENTOLIN HFA) 90 mcg/Actuation inhaler Inhale 2 puffs into the lungs every 4 hours as needed. Use with spacer Active naproxen (NAPROSYN) 500 mg Tablet TK 1 T PO BID WF PRF PAIN 11/06/2019 Active diclofenac (Voltaren) 1 % Gel APPLY TOPICALLY TO BOTH KNEES TWICE DAILY NEEDED FOR PAIN 08/26/2021 Active meclizine (Antivert) 25 mg tablet TAKE 1 TABLET BY MOUTH EVERY 8 HOURS NEEDED FOR VERTIGO 03/17/2022 Active Active Problems Problem Noted Date Diagnosed Date Solitary bone cyst of hand, left 02/24/2022 Asperger's disorder 11/26/2010 ADHD (attention deficit hyperactivity disorder) 11/26/2010 PTSD (post-traumatic stress disorder) 11/26/2010 Social History Tobacco Use Types Packs/Day Years Used Date Smoking Tobacco: Never Smokeless Tobacco: Never Alcohol Use Standard Drinks/Week Comments Not Currently 0 (1 standard drink = 0.6 oz pur e alcohol) Sex and Gender Information Value Date Recorded Sex Assigned at Not on file Gender Identity Not on file Sexual Orientation Not on file Last Filed Vital Signs Vital Sign Reading Time Taken Comments Blood Pressure 127/73 02/24/2022 2:55 PM EST Pulse 92 02/24/2022 2:55 PM EST Temperature 36.6 ??C (97.9 ??F) 02/24/2022 2:55 PM ES T Respiratory Rate 20 02/26/2020 9:15 AM EST Oxygen Saturation 97% 02/26/2020 9:15 AM EST Inhaled Oxygen Concentration - - Weight 115.9 kg (255 lb 8.2 oz) 023 10:48 AM EDT Height 176.1 cm (5' 9.33) 12/25/2022 1 0:48 AM EDT Body Mass Index 37.37 12/25/2022 10:48 AM EDT Plan of Treatment Health Maintenance Due Date Last Done Comments HIV screen 2010 Hepatitis C Screening 2010 Lipid Screening 2010 Hepatitis B vaccine (0-59 yr s) (1) 2011 Tetanus/Diphtheria/Pertussis Vaccines (1 - Tdap) 2011 Covid-19 Vaccine (5 - 2023-2 5 season) 2023 03/22/2023, 01/13/2022, 08/15/2020, Additional history exists Influenza (Flu) vaccine (1 o f 1 - Influenza standard series) 11/14/2023 Care Teams Line Closer Relationship Specialty Start Date End Date Anum Perze, SABAS PCP - General Family Medicine 02/06/20
--- OUTSIDE RECORDS SUMMARY | 2024-01-21 00:50 | XMS_ITS | Encounter Summary ---
[place] [address] Care Team Providers Care Mica Machine Operator Name Role Phone Anum Perez APRN Primary Care Provider [phone] Reason for Referral * Consultation (Routine) - Closed Specialty Diagnoses / Procedures Referred By Trina jha Referred To Contact Neurology Diagnoses Dizziness and giddiness Anum Perez APRN [address] [place] [address] [facility] [address] [place] [phone] Referral ID Status Reason Start Date Expiration Date V isits Requested Visits Authorized [id number] Closed Consult, Test & Treat 05/28/2023 05/27/2024 1 1 Encounter Details Date Type Department Care Team (Latest Contact Info) Description 05/28/2023 Transcribe Orders eDH Incoming Referrals [phone] Anum Perez APRN [address] [place], [place] [id number] Dizziness and giddiness Social History Tobacco Use Types Packs/Day Years [...] Scheduled Referrals Name Type Priority Associated Diagnoses Orde r Schedule Referral to Neurology Outpatient Referral Routine Dizziness and giddiness Ordered: 05/28/2023 documented as of this encounter Visit Diagnoses Diagnosis Dizziness and giddiness documented in this encounter Care Teams Mica Machine Operator Relationship Specialty Start Date End Date Anum Perez APRN PCP - General Family Medicine 02/06/20 documented as of this encounter
--- OUTSIDE RECORDS SUMMARY | 2024-01-21 00:50 | XMS_ITS | Encounter Summary ---
Author Organization [facility] Address [address] [place] [address] Care Team Providers Care Financial Reporting Manager Name Role Phone Unavailable Primary Care Provider Unavailabl e Encounter Details Date Type Department Care Team (Late st Contact Info) Description 07/25/2020 11:20 EDT Immunization [facility] Mobile Testing [address] [place] [address] Social History Tobacco Use Types Packs/Day Years [...] PF 0.3 ML IM (16 YRS+) 1 07/25/2020 documented in this encounter
--- OUTSIDE RECORDS SUMMARY | 2024-01-21 00:50 | XMS_ITS | Encounter Summary ---
Author Organization [facility] [place] [address] Care Team Providers Care Project Engineering Director Name Role Phone Anum Perez APRN Primary Care Provider [phone] Encounter Details Date Type Department Care Team (Late st Contact Info) Description 02/17/2022 Orders [place] [address] Eran Schmid MD [facility] [place] [address] Pain in left wrist Social History Tobacco [...] who have questions please contact the health acute care physical therapist that requested your imaging first. ? Electronically signed by: SHEREE MARQUEZ MD, [facility] ([phone]), at 02/24/2022 4:15 PM Narrative 02/24/2022 4:15 PM EST EXAMINATION: XR [...] patients who have questions please contactthe health acute care physical therapist that requested your imaging first. Electronically signed by: SHEREE MARQUEZ MD, [facility]([phone]), at 02/24/2022 4:15 PM Eran Schmid MD IMG DX ORDERABLES documented in this encounter Visit Diagnoses Diagnosis Pain in left wrist Pain in joint, forearm Pain in left wrist Pain in joint, forearm documented in this encounter Care Teams Project Engineering Director Relationship Specialty Start Date End Date Anum Perez APRN PCP - General Family Medicine 02/06/20 documented as of this encounter
--- OUTSIDE RECORDS SUMMARY | 2024-01-21 00:50 | XMS_ITS | Encounter Summary ---
Author Organization [facility] [place] [address] Care Team Providers Care Document Restorer Name Role Phone Anum Perez APRN Primary Care Provider [phone] Reason for Referral * Occupational Therapy (Routine) - Closed Specialty Diagnoses / Procedures Referred By Trina jha Referred To Contact Occupational Therapy Diagnoses Solitary bone cyst of hand, right Eran Schmid MD [facility] [place] [address] [facility] [address] [place] [address] Referral ID Status Reason Start Date Expiration Date V isits Requested Visits Authorized [id number] Closed Evaluate and Treat 02/24/2022 02/24/2023 12 12 Reason for Visit * Reason Comments Follow-up Left wrist cyst Encounter Details Date Type Department Care Team (Late st Contact Info) Description 02/24/2022 3:00 PM EST Office [place] [address] Eran Schmid MD [facility] [place] [address] Solitary bone cyst of hand, left Social [...] 02/24/2022 2:55 PM ES T Respiratory Rate - - Oxygen Saturation - - Inhaled Oxygen Concentration - - Weight 117.7 kg (259 lb 8 oz) 02/24/2022 2:55 PM EST Height 171.5 cm (5' 7.5) 02/24/2022 2:55 PM EST Body Mass Index 40.04 02/24/2022 2:55 PM EST documented in this encounter Progress Notes * Eran Schmid MD - 02/24/2022 3:00 PM EST Orthopaedic Clinic Progress Note DATE OF VISIT: 02/24/22 CHIEF COMPLAINT: Chief Complaint Patient presents with ??? Follow-up Left wrist cyst HPI: Da Lewis is a 31 y.o. male patient who presents to the orthopaedic clinic for a follow-up appointment. Followed for diffuse left wrist pain, bone cyst in lunate on MRI without radiographic collapse Has been in short arm cast Left side since last visit, for the past month. He said it was fine at first, developed some parasthesias. He has otherwise been well. He feels the wrist is the same today out of cast as it was before cast. Minimal improvement. No new injuries, amy numbness or worsening. No recent fever, chills, illnesses. MEDICATIONS: Current Outpatient Medications: ??? diclofenac (Voltaren) 1 % Gel, APPLY TOPICALLY TO BOTH KNEES TWICE DAILY NEEDED FOR PAIN, Disp: , Rfl: ??? hydrocortisone 1 % Cream, KAILA ON THE AREA SURROUNDING THE ANUS ONCE DAILY FOR 14 DAYS, Disp: , Rfl: ??? albuterol (PROVENTIL HFA;VENTOLIN HFA) 90 mcg/Actuation inhaler, Inhale 2 puffs into the lungs every 4 hours as needed. Use with spacer , Disp: , Rfl: ??? naproxen (NAPROSYN) 500 mg Tablet, TK 1 T PO BID WF PRF PAIN, Disp: , Rfl: ALLERGIES: No Known Allergies PHYSICAL EXAM: Temp: [36.6 ??C (97.9 ??F)] Heart Rate: [92] BP: (127)/(73) Body mass index is 40.04 kg/m??. No acute distress Affect within normal limits for age Alert and oriented Speech clear and intact, appropriate for age Head atraumatic Respirations unlabored Brisk capillary refill peripheral bilateral upper extremities, warm and well perfused LUE examined: Sensation intact to light touch hand, palm and all fingers Proximal radial dorsal forearm feels prickly parasthesias, stings. Similar in central palm WF 45 degrees with dorsal wrist pain WE approx 35 degrees No thenar or hypothenar atrophy EPL, FPL, Finger flexors, WE, WF, EDC all fire Palmar abduction thumb intact 5/5 strength JOHN Moderate pain with resisted EPL TTP radial styloid (mild), ulnar styloid (mild), SL interval moderate, Ashly's tubercle moderate Non tender volar CMC joint Tinel's at DSRN IMAGING: Personally reviewed Left wrist xray today appears stable from prior. No worsening cystic changes, collapse, sclerosis, fractures or lucencies. ASSESSMENT and PLAN: This is a 31 y.o. male seen in follow-up for Left wrist pain in the setting ofa moderately sized cyst lunate. We had a long discussion regarding potential etiologies of pain, may or may not be related to the cyst. We discussed ongoing management, continued nonoperative trial at this time, but we did discuss potential for surgery if all else fails. We discussed risks of cyst curettage. PLAN: - OT today for L Wrist ROM exercises - Activity as tolerated - f/u in 3 months with repeat XR L Wrist - If no improvement consider steroid injection trial prior to surgical management All questions were answered, and the patient/family were satisfied with the discussion. They know to call sooner with any questions or concerns. Follow-up: OT Hand therapy for L wrist ROM exercises Follow-up in 3 months, patient will call sooner (in 2 months) if condition significantly worsens. Can wait up to 6 months for follow-up if showing improvement X ray Left wrist on return. Eran Schmid MD, MPH Department of Orthopaedic Surgery Pediatric Orthopaedic & Hand Surgeon * Amaury Jaramillo MD - 02/24/2022 3:00 PM EST ORTHOPAEDIC SURGERY CLINIC NEW PATIENT EVALUATION DATE OF VISIT: 02/24/22 Chief complaint: Chief Complaint Patient presents with ??? Follow-up Left wrist cyst History of present illness: Da Lewis is a 31 y.o. year-old male who is seen today for left wrist pain. Patient has been experiencing left wrist pain for approximately 1 year. Describes the pain as a crushing sensation. Patient localizes the pain to the middle of his wrist joint. He pointsto the dorsal aspect of his wrist and says the pain is deep. The pain intermittently radiates to his hand and upper forearm. Denies amy numbness, tingling, or weakness of the fingers. Pain is exacerbated by prolonged or heavy lifting of the wrist. The wrist pain is on and off and has flares of pain approximately 2-3 times per day. During these flares he is unable to lift anything with that wrist for example has pain with lifting a hand of playing cards. Patient endorses intermittent swelling of the wrist. Denies fevers or chills. Patient notes that he had a remote trauma to this wrist as a child but has not had pain in the wrist since. Patient has tried bracing in the past which improved his pain while in the brace. However continues to have pain and the brace is removed. Patient is notcurrently taking any NSAIDs or Tylenol. Patient is referral from the [facility] after an MRI of the left wrist noted a cystic lesion of the lunate. X-ray of the left wrist was negative. Past Medical history: Patient Active Problem List Diagnosis Date Noted ??? Solitary bone cyst of hand, left 02/24/2022 ??? Asperger's disorder 11/26/2010 ??? ADHD (attention deficit hyperactivity disorder) 11/26/2010 ??? PTSD (post-traumatic stress disorder) 11/26/2010 Medications: ??? diclofenac (Voltaren) 1 % Gel ??? hydrocortisone 1 % Cream ??? albuterol (PROVENTIL HFA;VENTOLIN HFA) 90 mcg/Actuation inhaler ??? naproxen (NAPROSYN) 500 mg Tablet Allergies: No Known Allergies Social history: Social History Tobacco Use ??? Smoking status: Never ??? Smokeless tobacco: Never Substance Use Topics ??? Alcohol use: Not on file Questionnaire Responses: No flowsheet data found. No flowsheet data found. No flowsheet data found. Vital signs: Temp: [36.6 ??C (97.9 ??F)] Heart Rate: [92] BP: (127)/(73) Body mass index is 40.04 kg/m??. Physical Exam: No acute distress Affect within normal limits for age Alert and oriented Speech clear and intact, appropriate for age Head atraumatic Respirations unlabored Brisk capillary refill peripheral bilateral upper extremities, warm and well perfused Left wrist exam: Minimal effusion of the wrist No erythema Sensation intact in radial/median/ulnar distributions Diffuse tenderness to palpation over ulnar styloid, radial styloid, and most significantly scapholunate interval Negative Cummins test No midcarpal instability. Full flexion extension of fingers Decreased range of motion both active and passive of wrist flexion and extension (approximately 15 degrees less than contralateral side in both directions) Pain at extremes of passive range of motion of wrist flexion extension Normal range of motion of wrist in ulnar and radial deviation Adequate perfusion of distal digits Imaging: Personal review of the patient's imaging reveals: X-ray left wrist fracture or osseous normality. Normal scapholunate interval. MR left wrist demonstrates a well demarcated cystic lesion of the lunate. Assessment/Plan: 31 y.o. year-old male with one year of left wrist pain. Clinical exam notes wrist pain that is diffusely TTP over the scapholunate interval and with flexion/extension of the wrist. Although there is no evidence of cystic change on x-ray, there is a cystic lesion on MR of the left wrist. 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 Another less common but serious diagnosis wouldbe Kienbocks disease (AVN of lunate). Ulnar impaction is unlikely given minimal/no discomfort with ulnar deviation of wrist or evidence of ulnar impaction on MR. Recommend immobilization with a short arm cast of left wrist at today's visit to allow for soft tissue rest. Recommend 1 week of Aleve twice daily. We will plan to see patient back in approximately 4to 5 weeks for repeat x-ray out of cast and reevaluation. Cyst may heal spontaneously with rest, otherwise we will consider an additional MRI at there is progression of the lesion on XR or symptoms worsen. Patient to call sooner with any questions or concerns. This plan was discussed with the patient and they are in agreement. All of the patient's questions were answered, and they were satisfied with the discussion. Follow up: 4-5 weeks w/ Dr. Schmid In person XR out of cast L wrist No need for therapy at this visit Amaury Jaramillo MD Orthopaedic Resident I have seen and examined the above named patient, reviewed and edited the contents of the note supplied by the resident or physician sap pi architect with whom I saw the patient, and reviewed our findings and recommendations with the patient in person. Eran Schmid MD, MPH Department of Orthopaedic [...] left documented in this encounter Care Teams Document Restorer Relationship Specialty Start Date End Date Anum Perez APRN PCP - General Family Medicine 02/06/20 documented as of this encounter
--- OUTSIDE RECORDS SUMMARY | 2024-01-21 00:50 | XMS_ITS | Encounter Summary ---
Author Organization [facility] [place] [address] Care Team Providers Care Information Technology Architect Name Role Phone Anum Perez APRN Primary Care Provider Reason for Visit * Reason Comments Follow Up Fracture Pain in left wrist Encounter Details Date Type Department Care Team (Late st Contact Info) Description 02/24/2022 2:00 PM EST Office Visit Orthopaedics at [facility] [place] [address] Pain in left wrist Social History Tobacco Use Types Packs/Day Years Used Date Smoking Tobacco: Never Smokeless Tobacco: Never Sex and Gender Information Value Date Recorded Sex Assigned at Not on file Gender Identity Not on file Sexual Orientation Not on file documented as of this encounter Progress Notes * Aggie Chaudhary - 02/24/2022 2:00 PM EST Da Lewis presents to the clinic for a cast off per Dr. Schmid. The cast was intact upon arrival. The patient was explained how the cast saw works and the cast was removed. The patient tolerated this procedure well. The patient's skin was intact.The patient was then sent to x-ray. documented in this encounter Plan of Treatment Not on file documented as of this encounter Visit Diagnoses Diagnosis Pain in left wrist Pain in joint, forearm documented in this encounter Care Teams Information Technology Architect Relationship Specialty Start Date End Date Anum Perez APRN PCP - General Family Medicine 02/06/20 documented as of this encounter
--- OUTSIDE RECORDS SUMMARY | 2024-01-21 00:50 | XMS_ITS | Encounter Summary ---
Author Organization [facility] Address [facility] [place] [address] Care Team Providers Care Rail Car Mechanic Name Role Phone Anum Perez APRN Primary Care Provider [phone] Encounter Details Date Type Department Care Team (Latest Contact Info) Description 12/25/2022 10:21 AM EDT - 12/25/2022 11:59 PM EDT Hospital Encounter XRay at [address] [place] [address] Eran Schmid MD [facility] [place] [address] Pain in left wrist Discharge Disposition: Home [...] Comments XR WRIST 3 VIEWS LEFT Routine 12/25/2022 10:46 AM EDT Pain in left wrist documented in this [...] who have questions please contact the health residential child care counselor that requested your imaging first. ? Electronically signed by: Skyla Zamarripa MD, [facility] ([phone]), at 12/25/2022 11:36 AM Narrative 12/25/2022 11:36 [...] patients who have questions please contactthe health residential child care counselor that requested your imaging first. Eran Schmid MD IMG DX ORDERABLES documented in this encounter Visit Diagnoses Diagnosis Pain in left wrist Pain in joint, forearm documented in this encounter Care Teams Rail Car Mechanic Relationship Specialty Start Date End Date Anum Perez APRN PCP - General Family Medicine 02/06/20 documented as of this encounter
--- OUTSIDE RECORDS SUMMARY | 2024-01-21 00:50 | XMS_ITS | Encounter Summary ---
Author Organization [facility] [place] [address] Care Team Providers Care Monorail Crane Operator Name Role Phone Anum Perez APRN Primary Care Provider [phone] Reason for Visit * Reason Comments Follow Up Fracture Encounter Details Date Type Department Care Team (Late st Contact Info) Description 01/20/2022 2:15 PM EST Office Visit [facility] at [facility] [place] [address] Pain in left wrist Social History Tobacco Use Types Packs/Day Years Used Date Smoking Tobacco: Never Smokeless Tobacco: Never Sex and Gender Information Value Date Recorded Sex Assigned at Not on file Gender Identity Not on file Sexual Orientation Not on file documented as of this encounter Progress Notes * Aggie Chaudhary - 01/20/2022 2:15 PM EST Da Lewis presents to the cast room for a cast on per Dr. Schmid . The patient's skin is intact. The patient is going into a well padded fiberglass short-arm cast on the left side. The patient tolerated the procedure well. A detailed conversation regarding range of motion exercises were reviewed with patient as well as RICE, and remedies for itching. We have given the patient a Taking careof your cast pamphlet that has a written detail of all of this information along with the names ofthe cast techs to reach if needed. The patient is informed to call with any questions or concerns. documented in this encounter Plan of Treatment Not on file documented as of this encounter Visit Diagnoses Diagnosis Pain in left wrist Pain in joint, forearm documented in this encounter Care Teams Monorail Crane Operator Relationship Specialty Start Date End Date Anum Perez APRN PCP - General Family Medicine 02/06/20 documented as of this encounter
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
--- OUTSIDE RECORDS SUMMARY | 2024-01-21 00:51 | XMS_ITS | Encounter Summary ---
Author Organization [facility] [place] [address] Care Team Providers Care Line Haul Truck Driver Name Role Phone Bharath Manzano MD Primary Care Provider [phone] Encounter Details Date Type Department Care Team (Late st Contact Info) Description 04/12/2017 Ancillary Procedure Radiology Library at [facility] [place] [address] Chris Rudolph MD [facility] DR THORACIC [place] [address] Social History Tobacco Use Types Packs/Day Years Used Date Smoking Tobacco: Never Sex and Gender Information Value Date Recorded Sex Assigned at Not on file Gender Identity Not on file Sexual Orientation Not on file documented as of this encounter Plan of Treatment Not on file documented as of this encounter Procedures Procedure Name Priority Date/Time Associated Diagnosis Comments FILM LIBRARY STORAGE ONLY MR HEAD Routine 04/12/2017 12:00 AM EST documented in this encounter Results * Film Library- Storage Only MR Head (04/12/2017 12:00 AM EST) Narrative [facility] - 02/23/2020 7:24 PM EST This exam is auto-finalizing. It's purpose is for storage only. Chris Rudolph MD IMG FILM LIBRARY ORDERABLES [facility] [place] [place] [place] documented in this encounter Visit Diagnoses Not on filedocumented in this encounter Care Teams Line Haul Truck Driver Relationship Specialty Start Date End Date Bharath Manzano MD [address] [place] [address] PCP - General 02/04/10 02/05/20 documented as of this encounter
--- OUTSIDE RECORDS SUMMARY | 2024-01-21 00:51 | XMS_ITS | Encounter Summary ---
Author Organization [facility] Address [facility] [place] [address] Care Team Providers Care Detention Officer Name Role Phone Anum Perez APRN Primary Care Provider [phone] Reason for Visit * Reason Comments Establish Care L WRIST PAIN, CYST * Consultation (Routine) - Closed Specialty Diagnoses / Procedures Referred By Trina jha Referred To Contact Orthopaedics Diagnoses Pain in left wrist Xavi Bailey MD [address] [place] [address] [facility] [address] [place] [address] Referral ID Status Reason Start Date Expiration Date V isits Requested Visits Authorized [id number] Closed Consult, Test & Treat PCP Updated and/or Approved 12/12/2021 12/12/2022 6 6 Encounter Details Date Type Department Care Team (Late st Contact Info) Description 01/20/2022 1:00 PM EST [place] [address] Eran Schmid MD [facility] [place] [address] Solitary bone cyst of hand, left Social History Tobacco Use Types Packs/Day Years Used Date Smoking Tobacco: Never Smokeless Tobacco: Never Sex and Gender Information Value Date Recorded Sex Assigned at Not on file Gender Identity Not on file Sexual Orientation Not on file documented as of this encounter Last Filed Vital Signs Vital Sign Reading Time Taken Comments Blood Pressure 129/82 01/20/2022 1:02 PM EST Pulse 69 01/20/2022 1:02 PM EST Temperature - - Respiratory Rate - - Oxygen Saturation - - Inhaled Oxygen Concentration - - Weight 117.9 kg (260 lb) 01/20/2022 1:02 PM EST Height - - Body Mass Index 39.96 02/26/2020 9:15 AM EST documented in this encounter Progress Notes * Amaury Jaramillo MD - 01/20/2022 1:00 PM EST ORTHOPAEDIC SURGERY CLINIC NEW PATIENT EVALUATION DATE OF VISIT: 01/20/22 Chief complaint: Chief Complaint Patient presents with ??? Establish Care L WRIST PAIN, CYST History of present illness: Da Lewis is [...] and the brace is removed. Patient is not currently taking any NSAIDs or Tylenol. Patient is referral from the [facility] after an MRI of the left wrist noted a cystic lesion of the lunate. X-ray of the left wrist was negative. Past Medical history: Patient Active Problem List Diagnosis Date Noted ??? Asperger's disorder 11/26/2010 ??? ADHD (attention deficit hyperactivity disorder) 11/26/2010 ??? PTSD (post-traumatic stress disorder) 11/26/2010 Medications: ??? diclofenac (Voltaren) 1 % Gel ??? naproxen (NAPROSYN) 500 mg Tablet ??? albuterol (PROVENTIL HFA;VENTOLIN HFA) 90 mcg/Actuation inhaler ??? hydrocortisone 1 % Cream Allergies: No Known Allergies Social history: Social History Tobacco Use ??? Smoking status: Never Smoker ??? Smokeless tobacco: Never Used Substance Use Topics ??? Alcohol use: Not on file Questionnaire Responses: No flowsheet data found. No flowsheet data found. No flowsheet data found. Vital signs: Temp: -- Heart Rate: -- BP: -- There is no height or weight on file to calculate BMI. Physical Exam: No acute distress Affect within [...] note supplied by the resident or physician returned goods repairer with whom I saw the patient, and reviewed our findings and recommendations with the patient in person. Eran Schmid MD, MPH Department of Orthopaedic Surgery Pediatric Orthopaedic & Hand Surgeon documented in this encounter Plan of Treatment Not on file documented as of this encounter Visit Diagnoses Diagnosis Solitary bone cyst of hand, left documented in this encounter Care Teams Detention Officer Relationship Specialty Start Date End Date Anum Perez APRN PCP - General Family Medicine 02/06/20 documented as of this encounter
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
--- OUTSIDE RECORDS SUMMARY | 2024-01-21 00:51 | XMS_ITS | Encounter Summary ---
[place] [address] Care Team Providers Care Cylinder Machine Operator Pulp Drier Name Role Phone Anum Perez APRN Primary Care Provider [phone] Reason for Referral * Consultation (Routine) - Closed Specialty Diagnoses / Procedures Referred By Trina jha Referred To Contact Orthopaedics Diagnoses Pain in left wrist Xavi Bailey MD [address] [place] [address] [facility] [address] [place] [phone] Referral ID Status Reason Start Date Expiration Date V isits Requested Visits Authorized [id number] Closed Consult, Test & Treat PCP Updated and/or Approved 12/12/2021 12/12/2022 6 6 Encounter Details Date Type Department Care Team (Late st Contact Info) Description 12/12/2021 Transcribe Orders eDH Incoming Referrals [phone] Xavi Bailey MD [address] [place], [place] [address] Pain in left wrist Social History Tobacco Use Types Packs/Day Years Used Date Smoking Tobacco: Never Smokeless Tobacco: Never Sex and Gender Information Value Date Recorded Sex Assigned at Not on file Gender Identity Not on file Sexual Orientation Not on file documented as of this encounter Plan of Treatment Scheduled Referrals Name Type Priority Associated Diagnoses Order Schedule Referral to Orthopaedics Outpatient Referral Routine Pain in left wrist Ordered: 12/12/2021 documented as of this encounter Visit Diagnoses Diagnosis Pain in left wrist Pain in joint, forearm documented in this encounter Care Teams Cylinder Machine Operator Pulp Drier Relationship Specialty Start Date End Date Anum Perez APRN PCP - General Family Medicine 02/06/20 documented as of this encounter
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
--- OUTSIDE RECORDS SUMMARY | 2024-01-21 00:51 | XMS_ITS | Encounter Summary ---
Author Organization [facility] [place] [address] Care Team Providers Care Head Tennis Coach Name Role Phone Anum Perez APRN Primary Care Provider Encounter Details Date Type Department Care Team (Late st Contact Info) Description 12/01/2021 Ancillary Procedure Radiology Library at [facility] [place] [phone] Eran Schmid MD [facility] [place] [address] Social History Tobacco Use Types Packs/Day Years [...] Diagnosis Comments FILM LIBRARY STORAGE ONLY MR WRIST Routine 12/01/2021 12:00 AM EDT documented in this encounter Results * Film Library- Storage Only MR Wrist (12/01/2021 12:00 AM EDT) Narrative [facility] - 01/07/2022 3:45 PM EDT This exam is auto-finalizing. It's purpose is for storage only. Eran Schmid MD IMG FILM LIBRARY ORD ERABLES [facility] [place] documented in this encounter Visit Diagnoses Not on filedocumented in this encounter Care Teams Head Tennis Coach Relationship Specialty Start Date End Date Anum Perez APRN PCP - General Family Medicine 02/06/20 documented as of this encounter
--- OUTSIDE RECORDS SUMMARY | 2024-01-21 00:51 | XMS_ITS | Encounter Summary ---
Author Organization [facility] [place] [address] Care Team Providers Care Boom Truck Driver Name Role Phone Anum Perez APRN Primary Care Provider [phone] Encounter Details Date Type Department Care Team (Latest Contact Info) Description 01/20/2022 Travel Social History Tobacco Use Types Packs/Day [...] on filedocumented in this encounter Care Teams Boom Truck Driver Relationship Specialty Start Date End Date Anum Perez APRN PCP - General Family Medicine 02/06/20 documented as of this encounter
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
--- OUTSIDE RECORDS SUMMARY | 2024-01-21 00:51 | XMS_ITS | Encounter Summary ---
Author Organization [facility] [place] [address] Care Team Providers Care Type Bar And Segment Assembler Name Role Phone Bharath Manzano MD Primary Care Provider [phone] Encounter Details Date Type Department Care Team (Late st Contact Info) Description 10/31/2018 Ancillary Procedure Radiology Library at [facility] [place] [phone] Anum Perez, SABAS [address] [place], [place] [id number] Social History Tobacco Use Types Packs/Day Years Used Date Smoking Tobacco: Never Sex and Gender Information Value Date Recorded Sex Assigned at Not on file Gender Identity Not on file Sexual Orientation Not on file documented as of this encounter Plan of Treatment Not on file documented as of this encounter Procedures Procedure Name Priority Date/Time Associated Diagnosis Comments FILM LIBRARY STORAGE ONLY DX SPINE Routine 10/31/2018 12:00 AM EDT documented in this encounter Results * Film Library- Storage Only DX Spine (10/31/2018 12:00 AM EDT) Narrative [facility] - 02/07/2020 9:26 AM EST This exam is auto-finalizing. It's purpose is for storage only. Anum Perez APRN IMG FILM LIBRARY ORD ERABLES [facility] [place], [place] documented in this encounter Visit Diagnoses Not on filedocumented in this encounter Care Teams Type Bar And Segment Assembler Relationship Specialty Start Date End Date Bharath Manzano MD [address] [place] [address] [place], [place] [id number] PCP - General 02/04/10 02/05/20 documented as of this encounter
--- OUTSIDE RECORDS SUMMARY | 2024-01-21 00:51 | XMS_ITS | Encounter Summary ---
Author Organization [facility] [place] [address] Care Team Providers Care Mobile Sales Assistant Name Role Phone Anum Perez APRN Primary Care Provider [phone] Encounter Details Date Type Department Care Team (Late st Contact Info) Description 02/23/2020 Telephone [place] [address] Kaelyn Tinoco Social History Tobacco Use Types Packs/Day Years Used Date Smoking Tobacco: Never Smokeless Tobacco: Never Sex and Gender Information Value Date Recorded Sex Assigned at Not on file Gender Identity Not on file Sexual Orientation Not on file documented as of this encounter Miscellaneous Notes * Telephone Encounter - Kaelyn Tinoco - 02/23/2020 12:55 PM EST Request faxed to [facility] to have them push recent ct imaging documented in this encounter Plan of Treatment Not on file documented as of this encounter Visit Diagnoses Not on filedocumented in this encounter Care Teams Mobile Sales Assistant Relationship Specialty Start Date End Date Anum Perez APRN PCP - General Family Medicine 02/06/20 documented as of this encounter
--- OUTSIDE RECORDS SUMMARY | 2024-01-21 00:51 | XMS_ITS | Encounter Summary ---
Author Organization [facility] [place] [address] Care Team Providers Care Web Marketing Manager Name Role Phone Bharath Manzano MD Primary Care Provider [phone] Encounter Details Date Type Department Care Team (Late st Contact Info) Description 06/13/2018 Ancillary Procedure Radiology Library at [facility] [place] [phone] Anum Perez, SABAS [address] [place], [place] [phone] Social History Tobacco Use Types Packs/Day Years [...] Diagnosis Comments FILM LIBRARY STORAGE ONLY DX CHEST Routine 06/13/2018 12:00 AM EDT documented in this encounter Results * Film Library- Storage Only DX Chest (06/13/2018 12:00 AM EDT) Narrative [facility] - 02/07/2020 9:23 AM EST This exam is auto-finalizing. It's purpose is for storage only. Anum Perez APRN IMG FILM LIBRARY ORD ERABLES [facility] [place], [place] documented in this encounter Visit Diagnoses Not on filedocumented in this encounter Care Teams Web Marketing Manager Relationship Specialty Start Date End Date Bharath Manzano MD [address] [place] [address] [place], [place] [phone] PCP - General 02/04/10 02/05/20 documented as of this encounter
--- OUTSIDE RECORDS SUMMARY | 2024-01-21 00:51 | XMS_ITS | Encounter Summary ---
Author Organization [facility] [place] [address] Care Team Providers Care Frame Expander Name Role Phone Anum Perez APRN Primary Care Provider [phone] Encounter Details Date Type Department Care Team (Late st Contact Info) Description 09/10/2021 Ancillary Procedure Radiology Library at [facility] [place] [phone] Eran Schmid MD [facility] [place] [address] Social History Tobacco Use Types Packs/Day Years [...] Diagnosis Comments FILM LIBRARY STORAGE ONLY DX WRIST Routine 09/10/2021 12:00 AM EDT documented in this encounter Results * Film Library- Storage Only DX Wrist (09/10/2021 12:00 AM EDT) Narrative [facility] - 01/07/2022 3:45 PM EDT This exam is auto-finalizing. It's purpose is for storage only. Eran Schmid MD IMG FILM [facility] [place] documented in this encounter Visit Diagnoses Not on filedocumented in this encounter Care Teams Frame Expander Relationship Specialty Start Date End Date Anum Perez APRN PCP - General Family Medicine 02/06/20 documented as of this encounter
--- NOTE | 2024-01-21 16:09 | DI.CT_ITS ---
Exam(s) CT SINUS WO EXAM: CT SINUS WO CLINICAL HISTORY: Chronic postnasal drip,rhinitis,nasal congestion,r09.81,j31.0,r09.82. Evaluate fo r sinusitis. TECHNIQUE: Imaging Protocol: Axial computed tomography images with coronal and sagittal reformatted images were created and reviewed. COMPARISON: MR MRI - BRAIN WO CONTRAST from 04/12/2017 FINDINGS: Frontal sinuses: Normally aerated. Ethmoid air cells: Minimal ethmoid mucosal thickening. Maxillary sinuses: Minimal mucous retention along the posterior and inferomedial looney of the left ma xillary sinus. Sphenoid sinuses: Normally aerated. Ostiomeatal complexes: Patent. Nasal cavity: Septum is mildly deviated toward the left. No modesto bullosa. No visible nasal polyps . Visualized regional soft tissues: No acute findings. Orbits: Unremarkable. Bones: Unremarkable. Mastoid Air Cells: Normally aerated. Visualized portions of the brain: Unremarkable as visualized. IMPRESSION: Minimal mucosal thickening ethmoid and left maxillary sinus. RADIATION DOSE DELIVERED: Total DLP DATA REPOSITORY: All CT scans at this facility are submitted to the National Radiology Data Registry (NRDR) Dose Index Registry (DIR) with the [employer] (ACR). RADIATION OPTIMIZATION: All CT scans at this facility use at least one of these dose optimization te chniques: automated exposure control; mA and/or kV adjustment per patient size (includes targeted exa ms where dose is matched to clinical indication); or iterative reconstruction.
== END 2024-01-21 01:06 ==
LOC: DI 00:46
PROVIDERS: PCP Nurse Practitioner Family; Visit Provider Registered Nurse Maternal Newborn
DX: R09.82 Postnasal drip (principal); J31.0 Chronic rhinitis; R09.81 Nasal congestion
CPT/HCPCS: 70486

== ENCOUNTER 2024-02-04 03:04 | Outpatient (CLI) | payer MEDICAID, SELFPAY ==
--- NOTE | 2024-02-08 14:02 | W.NUTRFU ---
Date of service: 02/04/24 Time of Service: 13:00 Nutrition Note NOTE: Da comes in for referred nutrition appt regarding weight management and MNT for hepatic steatosis. Via interview with Da, he has a lower food budget to work with - gets ~230 a month in [employer] benefits. Gets meals on wheels which he usually eats for breakfast when it arrives in AM. Tends to go grocery shopping infrequently. Da has barriers to eating a wide variety of traditional foods due to rating himself an extremely picky eater. He has begun going to the gym 1-2 days per week and spends time with treadmill walking and some weight machines. He was 248bs on 01/06 and weight today with clothes but not shoes and was 246lbs. Affirmed his changes/efforts recently have made a difference. He expressed interest in sample menus that are cost affective and we started to review some options but were continuously set back when Da voiced he didn't like many of the choices offered. Shifted to giving da resources for menu planing according to his recommended macros and energy: -2200kcals is staying active 220g total carbohyrdates 165grams protein 73g fat gave him AI resoure that will plan josé for him based on the above info plus can ask it to modify/substutute for items indesired and even consider cost. gave parameters he can simply use to help out such as getting minimm 30g fiber and limiting added sugar to 30g per day and focusing on getting lean protein and using frozen options for veggies. Gave him my card to contact with any questions or if he would like to reviewany menus he comes up with. Encouraged to be proactive above all things and plan his meals and not be reactive when hunger strikes. Prioritzed his carb and added sugar goal for hepatic steatosis. Time Spent in Nutritional Counseling and Treatment: 50 minutes
== END 2024-02-04 03:05 | disposition home or self-care (01) ==
LOC: DS 03:04
PROVIDERS: PCP Nurse Practitioner Family; Visit Provider Dietitian, Registered
DX: Z71.3 Dietary counseling and surveillance (principal)
CPT/HCPCS: 00123; 97802

== ENCOUNTER 2024-02-17 14:37 | Emergency (ER) | payer MEDICAID, SELFPAY ==
[2024-02-17 14:41] VITALS: BP 112/66; PULSE 75; RESP 16; TEMP 36.9; O2SAT 98
--- NOTE | 2024-02-17 16:43 | ED.GENADUL_ITS ---
Discharge Plan Disposition Patient Disposition: Home Condition: Stable Discharge Details Clinical Impression: Post procedure discomfort, Fatty liver Primary Care Provider: Anum Perez ED Provider: Yamilka Randolph Home Meds and New Rx's Prescriptions: New sucralfate [Carafate] 1 gram tablet 1 g PO QACHS 4 Days Qty: 16 0RF Rx Instructions: Take 1 tablet by mouth before meals and at bedtime as needed for stomach pain. No Action naproxen 500 mg tablet 500 mg PO BID PRN Discharge Instructions Instructions: Managing pain after surgery Additional Instructions: No abnormality noted on your labs or CT. No evidence of perforation, free fluid free air or obstruction. Please take the Carafate medication as directed. This will coat your stomach. You may also try an [id number] antacid for the next few days. Please follow-up with the GI specialist at [facility]. Follow up with primary care provider in 3-5 days. Return to ED sooner if any worsening or concerns. Referrals: [facility] [Outside] - 3 days Anum Perez APRN [Primary Care Provider] - 2 weeks Discharge Data Discharge Date/Time-TO BE ENTERED AT DEPARTURE: 02/17/24 20:28 HPI General Mode of arrival: ambulatory . Date/Time Provider Initiated Documentation: 02/17/24 15:12 . Limitations to Documentation: no limitations . Information obtained by: patient, RN notes reviewed and old records reviewed . HPI Narrative: 33-year-old male presents with a chief complaint of abdominal pain which began around 2:00 this afternoon. He did have an endoscopy yesterday at [facility] and reports that he was discharged home feeling fine. He reports nausea no vomiting denies any blood in his stool or dark tarry stools. He reports he has had a normal bowel movement since the procedure and is passing gas. Denies fever chills or any other associated symptoms. Asthma. Related Data Home Medications ?Medication ?Instructions ?Recorded ?Confirmed naproxen 500 mg tablet 500 mg PO BID PRN 02/08/24 02/17/24 sucralfate 1 gram tablet (Carafate) 1 g PO QACHS 4 days #16 tabs 02/17/24 Previous Rx's ?Medication ?Instructions ?Recorded sucralfate 1 gram tablet (Carafate) 1 g PO QACHS 4 days #16 tabs 02/17/24 Allergies Allergy/AdvReac Type Severity Reaction Status Date / Time No Known Allergies Allergy Verified 02/17/24 14:43 General Stated Complaint: Abd Prob QUENTIN: 3 Review of Systems All systems reviewed & are unremarkable except as noted in HPI and below Constitutional Constitutional: Denies fever(s) Gastrointestinal Gastrointestinal: Reports abdominal pain, Denies melena, Denies hematochezia, Denies coffee ground emesis, Denies diarrhea, Reports nausea, Denies vomiting and Denies hematemesis Exam Narrative Exam Narrative: Constitutional: Alert and oriented x3. Appears stated age. Overweight body habitus. Head: Normocephalic, no trauma. Eyes: Pupils PERRL, Red reflex noted, EOM's intact. Eyelids symmetrical without lesions, discharge, or swelling. ENT: Bilateral TM's WNL, External ear normal to inspection, no mastoid TTP, swelling, or erythema, Nasal turbinates WNL, no nasal discharge. Normal dentition, Posterior pharynx WNL, no exudate. Chest: RRR, Normal S1, S2, distal pulses intact. Resp: Lungs clear to auscultation bilaterally, no wheezes, rales, or rhonchi. Abdomen: Soft, non-distended, Normoactive bowel sounds all 4 quads. Generalized tenderness all 4 quadrants. Musculoskeletal: Normal gait, Moves all 4 extremities without difficulty. Skin: No suspicious rashes or lesions. Capillary refill less than 2 sec. Neurologic: Cranial nerves II-XII intact. Alert and oriented x 3. Motor: No deficits noted. Sensory: Intact bilaterally all 4 extremities. Hematologic/Lymphatic: No ecchymosis, no lymphadenopathy. Course Vital Signs Vital signs: Vital Signs Temperature 36.9 C 02/17/24 14:41 Pulse 75 02/17/24 14:41 Respiratory Rate 16 02/17/24 14:41 Blood Pressure 112/66 02/17/24 14:41 Pulse Oximetry 98 02/17/24 14:41 Temperature 36.9 C 02/17/24 14:41 Pulse 75 02/17/24 14:41 Respiratory Rate 16 02/17/24 14:41 Respiratory Effort Normal 02/17/24 14:43 Blood Pressure 112/66 02/17/24 14:41 Pulse Oximetry 98 02/17/24 14:41 Pain Level 6 12/05/24 14:41 Medical Decision Making 33-year-old male presents with a chief complaint of abdominal pain which began around 2:00 this afternoon. He did have an endoscopy yesterday at [facility] and reports that he was discharged home feeling fine. He reports nausea no vomiting denies any blood in his stool or dark tarry stools. He reports he has had a bowel movement since the procedure and is passing gas. 1702: [facility] called to speak ap oliveiraen with transfer center, they do not have any GI on-call at this time. They will fax over the records. Workup ordered including CBC CMP will add on a lipase and a urinalysis. Zofran ODT ordered will consider GI cocktail. And CT abdomen pelvis. Patient is agreeable to labs, he states that he had a reaction to IV contrast dye in the past and vomited and does not want to have the IV contrast dye again I did discuss with him that this is not the most optimal test however CT abdomen pelvis without contrast ordered. Labs are largely unremarkable, no leukocytosis, CMP within normal limits. Lipase within normal limits. Patient is refusing to give a urine sample. CT abdomen pelvis shows some hepatic steatosis no free fluid or free air no obstruction. Patient given Carafate here in dept, will give rx for this and encourage patient to follow-up with GI specialist at [facility]. Discussed CT results and labs with patient who verbalized understanding. This text was generated using [employer] system, please disregard any oddities of phrase or misspellings. Imaging Data Radiologic Study: Imaging: CT Scan Radiologist's impression: V rad CT abdomen pelvis without contrast report: Limitations: Lack of intravenous contrast limits evaluation of the solid viscera and bowel. Liver: Diffuse hypoattenuation with scattered areas of focal fatty sparing consistent with hepatic steatosis. No obvious mass however lack of contrast limits evaluation. Gallbladder and biliary ducts: No calcified gallstone. No biliary dilation. Pancreas: Unremarkable unhanced appearance of the pancreas. No ductal dilation. Spleen: Unremarkable unenhanced appearance of the spleen. No splenomegaly. Adrenal glands: Normal. No mass. Kidneys and ureters: Unremarkable unenhanced appearance. No hydronephrosis. No renal calcifications. Ureters are normal in course and caliber. Stomach and bowel: No evidence of bowel obstruction. No focal bowel wall thickening allowing for degree of bowel distension. Appendix: Within normal limits. Intraperitoneal space: No free fluid in the abdomen or pelvis. No free air. Vasculature: No abdominal aortic aneurysm. Lymph nodes: No pathologically enlarged lymph nodes. Urinary bladder: Unremarkable as visualized. Reproductive: Unremarkable unenhanced appearance. Bones/joints: Unremarkable. No acute fracture. Soft tissues: Trace/mild fat in the right inguinal canal. IMPRESSION: 1. No acute, unenhanced CT finding of the abdomen or pelvis. 2. Hepatic steatosis. Correlate with LFTs. Thank you for allowing us to participate in the care of your patient. Dictated and Authenticated by: Mahin Silva MD Lab Data Lab results reviewed: Yes I reviewed the patient's lab results. Labs: Laboratory Tests Range/Units 02/17/24 18:08 WBC (4.4-10.8) 10^3/uL 8.56 RBC (4.36-5.78) 10^6/uL 5.15 Hgb (13.5-17.5) g/dL 14.9 Hct (40.0-50.0) % 45.5 MCV (80-95) fL 88 MCH (27.0-33.0) pg 28.9 MCHC (32.0-36.0) % 32.7 RDW (11.8-14.1) % 12.3 Plt Count (130-400) 10^3/uL 308 MPV (8.0-11.0) fL 9.3 Immature Gran % % 0.5 Neutrophils % % 56.6 Lymphocytes % % 32.5 Monocytes % % 8.1 Eosinophils % % 1.6 Basophils % % 0.7 Nucleated RBC % (0.0-0.3) % 0.0 Absolute Neutrophils (1.2-6.7) 10^3/uL 4.85 Absolute Lymphocytes (1.2-3.4) 10^3/uL 2.78 Absolute Monocytes (0.1-0.8) 10^3/uL 0.69 Absolute Eosinophils (0.0-0.7) 10^3/uL 0.14 Absolute Basophils (0.0-0.2) 10^3/uL 0.06 Sodium (136-145) mmol/L 145 Potassium (3.5-5.1) mmol/L 4.2 Chloride (98-107) mmol/L 108 H Carbon Dioxide (21.0-32.0) mmol/L 27.8 Anion Gap (3-11) mmol/L 9.2 BUN (7-18) mg/dL 11 Creatinine (0.70-1.30) mg/dL 1.1 Est GFR (CKD-EPI 2020) (mL/min/1.73m2) 92.04 Glucose (74-106) mg/dL 94 Calcium (8.5-10.1) mg/dL 8.9 Magnesium (1.8-2.4) mg/dL 2.1 Total Bilirubin (0.2-1.0) mg/dL 0.72 AST (15-37) U/L 16 ALT (16-63) U/L 40 Alkaline Phosphatase (46-116) U/L 88 Total Protein (6.4-8.2) g/dL 7.3 Albumin (3.4-5.0) g/dL 4.2 Lipase (<78) U/L 60 Quality:SDOH Health Related Social Needs: Health related social needs material hardship(utilitie s)(Z59.87), food insecurity(Z59.41), transportation insecurity(Z59.82), problem related to primary support group(Z63.9) PFSH All Active Problems (Updated 02/17/24 @ 20:02 by Yamilka Randolph NP) Fatty liver (Acute) Post procedure discomfort (Acute) Thoracic back pain (Acute) Nasal congestion (Acute) Rhinitis (Acute) Post-nasal drip (Acute) Reflux laryngitis (Acute) Pain in joint of left knee (Acute) Radial styloid tenosynovitis (Acute) Hyperglycemia (Acute) Snoring (Acute) Pain in lower limb (Acute) Plantar fascial fibromatosis (Acute) Low back pain (Acute) Joint pain (Acute) Hydrocele of testis (Acute) Temporomandibular disorder (Acute) Obstructive sleep apnea (Chronic) Autistic disorder (Acute) Disorder of psychological development (Acute) Obesity with body mass index greater than 30 (Acute) Left wrist pain (Acute) Left wrist tendinitis (Acute) Steatosis of liver (Acute) Vertigo (Acute) Migraines (Chronic) Scrotal pain (Acute) Medical History Visual disturbance Hallucinations Acute abdominal pain in left upper quadrant Fatigue Dizziness and giddiness Fracture of lumbar spine Hypertrophic condition of skin Dementia no dementia- pt c/o forgetfulness- [place] [facility] [place]cele Hemorrhoids Allergic rhinitis Asthma, mild intermittent, well-controlled Cognitive developmental delay Back pain Mood disorder Learning disability Chronic headaches Heart burn Closed lumbar vertebral fracture Oppositional disorder Social History Smoking/Tobacco Use Status: Never Smoking risk assessment performed?: Yes Alcohol Intake: never Drug use: Never Substance use type: does not use Adopted: Yes Caregiver/Support person: No Foster care: No Household members: none Housing: apartment Number of Children: 0 number of grandchildren: 0 Communication Needs: Corrective Lenses Education Level: high school Do you need help understanding health information?: Often 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 Pets and animals: No Do you think of yourself as: decline to answer Current gender identity: male What is your relationship status?: refused to answer How often do you talk on the phone with friends or family?: decline to answer How often do you get together with friends or relatives?: decline to answer Do you belong to any clubs or organized social groups?: yes Panel score (0-1 are the most socially isolated patients): 1 What type of physical activity do you participate in: additional Details: Works out at the gym Duration: 15-30 minutes/day Frequency: 1-2 times per week Do you feel safe at home: Yes Do you feel safe in your relationship?: Yes
--- NOTE | 2024-02-17 17:45 | DI.CT_ITS ---
Exam(s) CT ABDOMEN PELVIS WO EXAM: CT ABDOMEN PELVIS WO CLINICAL HISTORY: Abdominal pain, S/P endoscopy. TECHNIQUE: Imaging Protocol: Axial computed tomography images with coronal and sagittal reformatted images were created and reviewed. COMPARISON: CT CT ABDOMEN PELVIS W from 06/28/2023 FINDINGS: Lack of IV contrast does limit evaluation of the solid organs. ABDOMEN: Lung Bases: Normal where visualized. Liver: There is diffuse decreased attenuation of the liver consistent with fatty infiltration. The l iver is enlarged measuring 19 cm long. No measurable mass. Gallbladder and biliary tract: No radiodense calculus or biliary ductal dilation. Pancreas: Normal density, no abnormal calcifications or inflammatory process. Spleen: Normal. Kidneys: Normal size, contour and axis.No radiodense stones or obstructive uropathy. No masses seen. Adrenal glands: No mass is seen. Lymph nodes: Within normal limits. Abdominal Aorta: Abdominal portion non-dilated. PELVIS: Bladder:Symmetric distention, no gross wall thickening. Bowel: No obstruction or bowel wall thickening. No evidence of appendicitis. The stomach is incomple tely distended limiting evaluation. Peritoneal cavity: No ascites, collection or mesenteric inflammatory response. No free air. Reproductive organs: Unremarkable as visualized. Bones: Within normal limits. Soft Tissues: Within normal limits. IMPRESSION: No acute abdominal or pelvic process. RADIATION DOSE DELIVERED: 799.5mGy.cm Total DLP DATA REPOSITORY: All CT scans at this facility are submitted to the National Radiology Data Registry (NRDR) Dose Index Registry (DIR) with the [employer] (ACR). RADIATION OPTIMIZATION: All CT scans at this facility use at least one of these dose optimization te chniques: automated exposure control; mA and/or kV adjustment per patient size (includes targeted exa ms where dose is matched to clinical indication); or iterative reconstruction.
[2024-02-17 18:15] LABS: Abs Immature Grans 0.04 10^3/uL (0.0-0.06); Absolute Basophil Count 0.06 10^3/uL (0.0-0.2); Absolute Eosinophil Count 0.14 10^3/uL (0.0-0.7); Absolute Lymphocyte Count 2.78 10^3/uL (1.2-3.4); Absolute Monocyte Count 0.69 10^3/uL (0.1-0.8); Absolute Neutrophil Count 4.85 10^3/uL (1.2-6.7); Basophils % 0.7 %; Eosinophils % 1.6 %; HCT 45.5 % (40.0-50.0); HGB 14.9 g/dL (13.5-17.5); Immature Grans % 0.5 %; Lymphocytes % 32.5 %; MCH 28.9 pg (27.0-33.0); MCHC 32.7 % (32.0-36.0); MCV 88 fL (80-95); MPV 9.3 fL (8.0-11.0); Monocytes % 8.1 %; Neutrophils % 56.6 %; Platelet Count 308 10^3/uL (130-400); RBC 5.15 10^6/uL (4.36-5.78); RDW 12.3 % (11.8-14.1); RDW-SD 40.2 fL; WBC 8.56 10^3/uL (4.4-10.8)
[2024-02-17 18:24] VITALS: BP 117/73; PULSE 54; RESP 22; TEMP 36.6; O2SAT 96
[2024-02-17 18:39] LABS: ALT 40 U/L (16-63); AST 16 U/L (15-37); Albumin 4.2 g/dL (3.4-5.0); Alkaline Phosphatase 88 U/L (46-116); Anion Gap 9.2 mmol/L (3-11); BUN 11 mg/dL (7-18); Bilirubin, Total 0.72 mg/dL (0.2-1.0); CO2 27.8 mmol/L (21.0-32.0); CREATININE 1.1 mg/dL (0.70-1.30); Calcium 8.9 mg/dL (8.5-10.1); Chloride 108 mmol/L (98-107); Estimated GFR 92.04 (mL/min/1.73m2); Glucose 94 mg/dL (74-106); Magnesium 2.1 mg/dL (1.8-2.4); Potassium 4.2 mmol/L (3.5-5.1); Sodium 145 mmol/L (136-145); Total Protein 7.3 g/dL (6.4-8.2)
[2024-02-17 18:56] LABS: Lipase 60 U/L (<78)
--- NOTE | 2024-02-17 19:51 | DI.VRAD_ITS ---
PROCEDURE INFORMATION: Exam: CT Abdomen And Pelvis Without Contrast Exam date and time: 02/17/2024 6:53 PM Age: 33 years old Clinical indication: Other: Abdominal pain, S/P endoscopy; Prior surgery; Surgery date: Post-operative (0-2 days) TECHNIQUE: Imaging protocol: Computed tomography of the abdomen and pelvis without contrast. COMPARISON: CT ABDOMEN PELVIS W 06/28/2023 2:14 PM FINDINGS: Limitations: Lack of intravenous contrast limits evaluation of the solid viscera and bowel. Liver: Diffuse hypoattenuation with scattered areas of focal fatty sparing consistent with hepatic steatosis. No obvious mass however lack of contrast limits evaluation. Gallbladder and biliary ducts: No calcified gallstone. No biliary dilation. Pancreas: Unremarkable unhanced appearance of the pancreas. No ductal dilation. Spleen: Unremarkable unenhanced appearance of the spleen. No splenomegaly. Adrenal glands: Normal. No mass. Kidneys and ureters: Unremarkable unenhanced appearance. No hydronephrosis. No renal calcifications. Ureters are normal in course and caliber. Stomach and bowel: No evidence of bowel obstruction. No focal bowel wall thickening allowing for degree of bowel distension. Appendix: Within normal limits. Intraperitoneal space: No free fluid in the abdomen or pelvis. No free air. Vasculature: No abdominal aortic aneurysm. Lymph nodes: No pathologically enlarged lymph nodes. Urinary bladder: Unremarkable as visualized. Reproductive: Unremarkable unenhanced appearance. Bones/joints: Unremarkable. No acute fracture. Soft tissues: Trace/mild fat in the right inguinal canal. IMPRESSION: 1. No acute, unenhanced CT finding of the abdomen or pelvis. 2. Hepatic steatosis. Correlate with LFTs. Dictated and Authenticated by: Mahin Silva MD. Ordering:AUDREY Prather MD
[2024-02-17] MEDS: Sucralfate 1 GM TAB PO (20:01)
[2024-02-17 20:11] VITALS: BP 135/98; PULSE 57; RESP 20; TEMP 36.3; O2SAT 100
[2024-02-17 20:12] VITALS: BP 135/103; PULSE 57; RESP 20; TEMP 36.3; O2SAT 100
--- NOTE | 2024-02-17 20:16 | NUR.NOTE ---
pt refused [facility]A
== END 2024-02-17 20:28 | disposition home or self-care (01) ==
PROVIDERS: Emergency Provider Registered Nurse Emergency; PCP Nurse Practitioner Family
DX: G89.18 Other acute postprocedural pain (principal); R10.10 Upper abdominal pain, unspecified; R10.30 Lower abdominal pain, unspecified; K76.0 Fatty (change of) liver, not elsewhere classified
CPT/HCPCS: 80053; 83690; 99284; 74176; 83735; 85025

== ENCOUNTER 2024-03-17 12:44 | Outpatient (CLI) | payer MEDICAID, SELFPAY ==
--- NOTE | 2024-03-17 09:52 | DI.RAD_ITS ---
Exam(s) XR THORACIC SPINE COMPLETE EXAM: XR THORACIC SPINE COMPLETE CLINICAL HISTORY: thoracic back pain, radiating to ribs,m54.6. TECHNIQUE: 2D digital imaging was performed. COMPARISON: No exams were available for comparison FINDINGS: 3 views No evidence of fracture or listhesis. No disc space narrowing. No scoliosis. No abnormal widening paraspinal lines. Bone density normal. No osseous lesions. IMPRESSION: No significant radiographic findings on these views of the thoracic spinal column. DATA REPOSITORY: RADIATION DOSE DELIVERED:
--- OUTSIDE RECORDS SUMMARY | 2024-03-17 12:47 | XMS_ITS | Encounter Summary ---
[place] [address] Care Team Providers Care Jewelry Facer Name Role Phone DenzelAnum ny Annabel OBREGON Primary Care Provider [phone] Reason for Referral * Consultation (Routine) - Authorized Specialty Diagnoses / Procedures Referred By Trina jha Referred To Contact Otolaryngology Diagnoses Post-nasal drip Chronic rhinitis Nasal congestion Charmaine Gordon APRN [address] [place] [address] [place] [address] [facility] [address] [place] [phone] Referral ID Status Reason Start Date Expiration Date Visits Requested Visits Authorized [id number] Authorized Consult, Test & Treat 02/04/2024 02/03/2025 1 1 Encounter Details Date Type Department Care Team (Late st Contact Info) Description 02/04/2024 Transcribe Orders eD Incoming Referrals [phone] Charmaine Gordon [address] [place], [place] [address] Post-nasal drip; Chronic rhinitis; Nasal congestion Social History Tobacco Use Types Packs/Day Years [...] Associated Diagnoses Orde r Schedule Referral to ENT Outpatient Referral Routine Post-nasal drip Chronic rhinitis Nasal congestion Ordered: 02/04/2024 documented as of this encounter Visit Diagnoses Diagnosis Post-nasal drip Postnasal drip Chronic rhinitis Nasal congestion Other diseases of nasal cavity and sinuses documented in this encounter Care Teams Jewelry Facer Relationship Specialty Start Date End Date Anum Perez, SABAS PCP - General Family Medicine 02/06/20 documented as of this encounter
--- OUTSIDE RECORDS SUMMARY | 2024-03-17 12:47 | XMS_ITS | Encounter Summary ---
[place] [address] Care Team Providers Care Dental Service Chief Name Role Phone Anum Perez APRN Primary Care Provider [phone] Reason for Referral * Consultation (Routine) - Closed Specialty Diagnoses / Procedures Referred By Trina jha Referred To Contact Neurology Diagnoses Dizziness and giddiness Anum Perez APRN [address] [place] [address] [facility] Neurology [address] [place] [phone] Referral ID Status Reason Start Date Expiration Date V isits Requested Visits Authorized [id number] Closed Consult, Test & Treat 05/28/2023 05/27/2024 1 1 Encounter Details Date Type Department Care Team (Latest Contact Info) Description 05/28/2023 Transcribe Orders eDH Incoming Referrals [phone] Anum Perez APRN [address] [place], [place] [phone] Dizziness and giddiness Social History Tobacco Use [...] giddiness documented in this encounter Care Teams Dental Service Chief Relationship Specialty Start Date End Date Anum Perez APRN PCP - General Family Medicine 02/06/20 documented as of this encounter
--- OUTSIDE RECORDS SUMMARY | 2024-03-17 12:47 | XMS_ITS | Encounter Summary ---
Author Organization [facility] [address] Care Team Providers Care Denture Waxer Name Role Phone Anum Perez APRN Primary Care Provider [phone] Encounter Details Date Type Department Care Team [...] on filedocumented in this encounter Care Teams Denture Waxer Relationship Specialty Start Date End Date Anum Perez APRN PCP - General Family Medicine 02/06/20 documented as of this encounter
--- OUTSIDE RECORDS SUMMARY | 2024-03-17 12:47 | XMS_ITS | Referral Summary ---
Author Organization [facility] Address [address] [place] [address] Care Team Providers Care Insurance Plan Specialist Name Role Phone Unavailable Primary Care Provider Unavailabl e Encounters Date Type Department Care Team Description 02/17/2024 Lab Requisition [facility] Pathology & Laboratory Medicine - [address] [address] Christopher Curtis MD Dysphagia, unspecified from Last 3 Months Immunizations Name Administration [...] Recorded Sex Assigned at Not on file Legal Sex Male 11:15 EDT Gender Identity Not on file Sexual Orientation Not on file Plan of Treatment Not on file Procedures Procedure Name Priority Date/Time Associated Diagnosis Comments SURGICAL PATHOLOGY Today 02/16/2024 13 :55 EST Dysphagia, unspecified from Last 3 Months Results * SURGICAL PATHOLOGY (02/16/2024 13:55 EST) Note to Patient The following pathology results have been interpreted by your pathologist and may be available to you before your health provider has had the opportunity to review them. Please allow time for your provider to receive these results and explore management options, if applicable. 02/22/2024 11:42 EST [facility] Final Diagnosis A. DUODENUM, BIOPSY: - Changes consistent with peptic injury. - No evidence gluten-sensitive enteropathy (celiac sprue). B. DUODENUM, BULB, BIOPSY: - Duodenal mucosa with no significant pathologic change. C. STOMACH, ANTRUM, BIOPSY: - Antral-type mucosa with changes consistent with a mild reactive (chemical) gastropathy. - No intestinal metaplasia or dysplasia. - No evidence of Helicobacter pylori on routine H&E stain. D. STOMACH, BODY, BIOPSY: - Oxyntic-type mucosa with no significant pathologic change. - No evidence of Helicobacter pylori on routine H&E stain. E. ESOPHAGUS, DISTAL, BIOPSY: - Benign squamous epithelium with no significant pathologic change. - No increase in intraepithelial eosinophils. F. ESOPHAGUS, MID, BIOPSY: - Benign squamous epithelium with no significant pathologic change. - No increase in intraepithelial eosinophils. 02/22/2024 11:42 [facility] Diagnosis Comment The technical component of the specimen processing was performed at the [facility] Pathology Department, [address] [place] [address] (CLIA [id number]). The professional component of the specimen evaluation (slide review and issuing of the final diagnosis) was performed at [facility], [address] [place] [address] (CLIA License Number [id number]). 02/22/2024 11:42 [facility] Attestation By the signature below, the attending physician certifies that they have 1) personally conducted a gross and/or microscopic examination of the described specimen(s), and/or personally interpreted the results of laboratory testing of the described specimen(s), and 2) personally rendered or confirmed the above diagnosis. 02/22/2024 11:42 [facility] at 1142 Clinical History Fatty liver ABD pain Dysphagia Pyrosis 02/22/2024 11:42 [facility] Gross Description A. Received in formalin labelled with proper patient identification (initials C, C) and A. Duodenum are 3 ortiz-brown tissues (0.2 x 0.2 x 0.1 cm to 0.3 x 0.1 x 0.1 cm). Entirely submitted in A1. B. Received in formalin labelled with proper patient identification (initials C, C) and B. Duodenal bulb are 2 ortiz-brown tissues (0.2 x 0.1 x 0.1 cm and 0.2 x 0.2 x 0.1 cm). Entirely submitted in B1. C. Received in formalin labelled with proper patient identification (initials C, C) and C. Gastric antrum is a ortiz-brown tissue (0.3 x 0.3 x 0.2 cm). Entirely submitted in C1. D. Received in formalin labelled with proper patient identification (initials C, C) and D. Gastric body are 3 ortiz tissues (0.2 x 0.1 x 0.1 cm to 0.4 x 0.2 x 0.1 cm). Entirely submitted in D1, however the smallest tissue may not survive processing. E. Received in formalin labelled with proper patient identification (initials C, C) and E. Distal esophagus are two white-ortiz tissues (0.2 x 0.2 x 0.1 cm and 0.4 x 0.2 x 0.1 cm). Entirely submitted in E1. F. Received in formalin labelled with proper patient identification (initials C, C) and F. Mid esophagus are 2 white tissues (0.1 x 0.1 x 0.1 cm and 0.2 x 0.2 x 0.1 cm). Entirely submitted in F1. DAIN FLORES(ASCP) 02/18/2024 7:50 02/22/2024 11:42 [facility] Performing Lab [facility] 11:42 [facility] Scanned Images 02/22/2024 11:42 [facility] Tissue ESOPHAGEAL STRUCTURE / Unknown 02/16/2024 13:55 EST 02/17/2024 18:30 EST Tissue specimen (specimen) STRUCTURE OF SMALL INTESTINE / Unknown 02/16/2024 13:55 EST 02/17/2024 18:30 EST Tissue specimen (specimen) STOMACH STRUCTURE / Unknown 02/16/2024 13:55 EST 02/17/2024 18:30 EST Tissue specimen (specimen) STOMACH STRUCTURE / Unknown 02/16/2024 13:55 EST 02/17/2024 18:30 EST Tissue specimen (specimen) ESOPHAGEAL STRUCTURE / Unknown 02/16/2024 13:55 EST 02/17/2024 18:30 EST Tissue specimen (specimen) ESOPHAGEAL STRUCTURE / Unknown 02/16/2024 13:55 EST 02/17/2024 18:30 EST us Christopher Curtis MD PATHOLOGY ORDERABLES Final Result [facility] [address] [place], [place] [address] from Last 3 Months Insurance MEDICAID [facility]
--- OUTSIDE RECORDS SUMMARY | 2024-03-17 12:47 | XMS_ITS | Encounter Summary ---
Author Organization [facility] Address [address] [place] [address] Care Team Providers Care Pulp Refiner Operator Name Role Phone Unavailable Primary Care Provider Unavailabl e Encounter Details Date Type Department Care Team (Late st Contact Info) Description 02/17/2024 Lab Requisition [facility] Pathology & Laboratory Medicine - [facility] [address] [place] [address] Christopher Curtis MD [address] [place] [id number] Dysphagia, unspecified Social History Tobacco Use Types Packs/Day Years [...] Today 02/16/2024 13 :55 EST Dysphagia, unspecified documented in this encounter Results * SURGICAL PATHOLOGY (02/16/2024 13:55 EST) Note to Patient The following pathology results have been interpreted by your pathologist and may be available to you before your health provider has had the opportunity to review them. Please allow time for your provider to receive these results and explore management options, if applicable. 02/22/2024 11:42 EST [facility] Final Diagnosis A. DUODENUM, BIOPSY: [...] No increase in intraepithelial eosinophils. 02/22/2024 11:42 [facility] Diagnosis Comment The technical component of the specimen processing was performed at the [facility] Pathology Department, [address] [place] [address] (CLIA [id number]). The professional component of the specimen evaluation (slide review and issuing of the final diagnosis) was performed at [facility], [address] [place] [address] (CLIA License Number [id number]). 02/22/2024 11:42 [facility] Attestation By the signature below, the attending physician certifies that they have 1) personally conducted a gross and/or microscopic examination of the described specimen(s), and/or personally interpreted the results of laboratory testing of the described specimen(s), and 2) personally rendered or confirmed the above diagnosis. 02/22/2024 11:42 [facility] at 1142 Clinical History Fatty liver ABD pain Dysphagia Pyrosis 02/22/2024 11:42 [facility] Gross Description A. Received in [...] F1. DAIN FLORES(ASCP) 02/18/2024 7:50 02/22/2024 11:42 [facility] Performing Lab [facility] 11:42 [facility] Scanned Images 02/22/2024 11:42 [facility] Tissue ESOPHAGEAL STRUCTURE / Unknown [...] Christopher Curtis MD PATHOLOGY ORDERABLES Final Result [facility] [address] [place] [address] documented in this encounter Visit Diagnoses Diagnosis Dysphagia, unspecified documented in this encounter
--- OUTSIDE RECORDS SUMMARY | 2024-03-17 12:47 | XMS_ITS | Encounter Summary ---
Author Organization [facility] [place] [address] Care Team Providers Care Outside Sales Advertising Executive Name Role Phone Anum Perez APRN Primary Care Provider [phone] Reason for Visit * Reason Comments Cognitive Problems Results Neuropsych eval Encounter Details Date Type Department Care Team (Latest Contact Info) Description 05/11/2023 3:30 PM EST Office Visit Psychiatry [place] [id number] Gabriele Shell, PhD Attention deficit hyperactivity disorder [...] FEEDBACK NOTE Patient Name: Da Lewis A#: [id number] Date of : 1990 Age: 32 years Sex: Male Referred By: Anum Perez APRN Date of Evaluation: 03/18/2023 Date of Feedback: 05/11/2023 Mr. Lewis gave permission for and was seen today via an in-person visit to discuss his 03/18/2023 [facility] neuropsychological evaluation. With his permission, his equipment service engineer (Cesar Golden)also attended the session. A total of 40 minutes were spent providing an overview of our findings and recommendations. Variable engagement with testing as evidenced by inconsistent performance on performance validity measures was discussed, which he generally disagreed with. Mr. Lewis and his equipment service engineer expressed understanding of the information provided. He reported ongoing memory difficulties and plans to locate his oral appliance to resume AKUA management. If you would like additional information, please do not hesitate to contact us at . The report is available in full in eD. Angie Magaña PsyD Postdoctoral Fellow in Neuropsychology Coronary Care Unit Nurseinstallation technician documented in this encounter Plan of Treatment Not on file documented as of this encounter Visit Diagnoses Diagnosis Attention deficit hyperactivity disorder (ADHD), unspecified ADHD type Autism spectrum disorder Autistic disorder, current or active state documented in this encounter Care Teams Outside Sales Advertising Executive Relationship Specialty Start Date End Date Anum Perez APRN PCP - General Family Medicine 02/06/20 documented as of this encounter
--- OUTSIDE RECORDS SUMMARY | 2024-03-17 12:47 | XMS_ITS | Encounter Summary ---
Author Organization [facility] [place] [address] Care Team Providers Care Signal Worker Helper Name Role Phone Anum Perez APRN Primary Care Provider [phone] Encounter Details Date Type Department Care Team (Late st Contact Info) Description 01/21/2024 Ancillary Procedure Radiology Library at [facility] [place] [phone] Anum Perez APRN [address] [place] [address] Social History Tobacco Use Types Packs/Day Years [...] Name Priority Date/Time Associated Diagnosis Comments FILM LIBRARY- STORAGE ONLY CT FACE Routine 01/21/2024 12:00 AM EST documented in this encounter Results * Film Library-Storage Only CT Face (01/21/2024 12:00 AM EST) Narrative NIKKI - 02/07/2024 3:01 PM EST This exam is auto-finalizing. It's purpose is for storage only. Anum Perez APRN IMG FILM LIBRARY ORD ERABLES [place] documented in this encounter Visit Diagnoses Not on filedocumented in this encounter Care Teams Signal Worker Helper Relationship Specialty Start Date End Date Anum Perez, SABAS PCP - General Family Medicine 02/06/20 documented as of this encounter
--- OUTSIDE RECORDS SUMMARY | 2024-03-17 12:47 | XMS_ITS | Encounter Summary ---
Author Organization [facility] Address [address] [place] [address] Care Team Providers Care Masonry Inspector Name Role Phone Unavailable Primary Care Provider Unavailabl e Encounter Details Date Type Department Care Team (Late st Contact Info) Description 08/27/2021 Lab Requisition [facility] Pathology & Laboratory Medicine - [facility] [address] [place], [place] [id number] Outr Resulting Lab, Provider Social History Tobacco [...] Factor <8.6 <12.0 IU/mL 08/27/2021 16:41 EDT [facility] Blood VENOUS BLOOD / Unknown 08/26/2021 15:55 EDT 08/27/2021 16:24 EDT us Provider Outr Resulting Lab CHEMISTRY & BLOOD GA S ORDERABLES Final Result [facility] [address] [place] [address] * CCP ANTIBODIES (08/26/2021 15:55 EDT) CCP Antibodies <2.5 <5.0 U/mL 08/28/2021 9:21 EDT [facility] Blood VENOUS BLOOD / Unknown 08/26/2021 15:55 EDT 08/27/2021 16:24 EDT us Provider Outr Resulting Lab IMMUNOLOGY AND SEROL OGY ORDERABLES Final Result [facility] [address] [place] [address] documented in this encounter Visit Diagnoses Not on filedocumented in this encounter
--- OUTSIDE RECORDS SUMMARY | 2024-03-17 12:47 | XMS_ITS | Clinical Summary ---
Author Organization [facility] Address [facility] [place] [address] Care Team Providers Care Fur Cutting Machine Operator Name Role Phone Anum Perez APRN Primary Care Provider [phone] Allergies No known active allergies Medications Medication [...] disorder) 11/26/2010 PTSD (post-traumatic stress disorder) 11/26/2010 Encounters Date Type Department Care Team Description 02/04/2024 Transcribe Orders eD Incoming Referrals [phone] Charmaine Gordon APRN Post-nasal drip; Chronic rhinitis; Nasal congestion 01/21/2024 Ancillary Procedure Radiology Library at [facility] [place] [phone] Anum Perez APRN from Last 3 Months Social History Tobacco [...] f 1 - Influenza standard series) 11/14/2023 Procedures Procedure Name Priority Date/Time Associated Diagnosis Comments FILM LIBRARY- STORAGE ONLY CT FACE Routine 01/21/2024 12:00 AM EST from Last 3 Months Results * Film Library-Storage Only CT Face (01/21/2024 12:00 AM EST) Narrative RAD - 02/07/2024 3:01 PM EST This exam is auto-finalizing. It's purpose is for storage only. Anum Perez APRN IMDarnell FILM LIBRARY ORD ERABLES NIKKI [place] from Last 3 Months Care Teams Fur Cutting Machine Operator Relationship Specialty Start Date End Date Anum Perez, PRIOR AUTHORIZATION NURSE PCP - General Family Medicine 02/06/20
--- OUTSIDE RECORDS SUMMARY | 2024-03-17 12:47 | XMS_ITS | Encounter Summary ---
Author Organization [facility] Address [facility] [place] [address] Care Team Providers Care Milk Sampler Name Role Phone Anum Perez SUPPLY CHAIN LOGISTICS MANAGER Primary Care Provider [phone] Reason for Visit * Reason Comments Cognitive Problems Neuropsych eval * Psychiatric (Routine) - Closed Specialty Diagnoses / Procedures Referred By Trina t Referred To Contact Psychiatry Diagnoses Forgetfulness Procedures PRO NEUROBEHAVIORAL STATUS EXAM, FIRST HOUR PRO NEUROPSYCHOLOGICAL TEST EVAL PHYS/QHP 1ST HOUR PRO NEUROPSYCHOLOGICAL TEST EVAL PHYS/QHP EA ADDL HR TC PSYCL/NRPSYCL CABLE TELEVISION INSTALLER 2+ TEST 1ST 30 MIN TC PSYCL/NRPSYCL CABLE TELEVISION INSTALLER 2+ TEST EA ADDL 30 MIN Anum Perez, SUPPLY CHAIN LOGISTICS MANAGER [address] [place] [address] Lb Enamorado, PhD [facility] [place] [address] Referral ID Status Reason Start Date Expiration Date V isits Requested Visits Authorized [id number] Closed Consult, Test & Treat PCP Updated and/or Approved 01/22/2022 02/24/2024 1 1 Encounter Details Date Type Department Care Team (Latest Contact Info) Description 03/18/2023 8:30 AM EST Office Visit Psychiatry [place] [phone] Gabriele Shell, PhD Attention deficit hyperactivity disorder [...] White, cisgender man. This is his [facility]. He was referred for evaluation of cognitive status in the context of a history of autism spectrum disorder. As his history is well known to you, it will be only briefly reviewed for our files. Please refer to his medical records for additional information. Background information was obtained from an interview with Mr. Lewis and his children's service worker (Gene Menendez), and from a review of [...] and prefers reading textbooks (math, science, and roman catholic). He bumps into objects when walking, which [...] roof when attempting to run away from [facility]), and spinal arthritis. He denied history of [...] current therapist for 6 months and a behavioral therapist for 1.5 years. He endorsed occasional intrusive [...] Occupational History: Mr. Cooper was born in [place], [place], and raised in [place], [place]. He noted that his position made sitting down difficult for his motherand history of nuchal cord, but denied other problems regarding his gestation and . 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 He was unsure whether he reached developmental milestones at appropriate ages, but Ms. Menendez noted reviewing social work reports indicating normal developmental milestones. Maldivian is his primary language. 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 [...] Inventory (TRANG); Renner Depression Inventory-II (BDI- II); [place] Naming Test, 2nd Edition (BNT-2); Brief VisuospatialMemory Test, Revised (BVMT-R, Form 1); [place] Verbal Learning Test, 3rd Edition (CVLT-3, Standard Form); Lexi-Acuña Executive Function System (DKEFS, selected subtests); [place]av[place] Sleepiness Scale (ESS); Grooved Pegboard Test (GPB); Insomnia Severity Index (MUSHTAQ); Mini-Mental Status Exam (MMSE);Eron Complex Figure Test (RCFT, Copy Trial only); TOMM; Gloster Making Test (TMT); Mary Adult Intel ligence Scale, 4th Edition (WAIS-IV, selected subtests); Mary Memory Scale, 4th Edition (WMS-IV, selected subtests); [place] Card Sorting Test (WCST, Computer Administered Version) TEST RESULTS: Note: All tests were administered by a calender machine operator helper. Descriptors are based on appropriate normative data. [...] Average Serial Clustering 0.2 (9) Average Learning [place] 1.2 (9) Average BVMT-R: Raw (Percentile) Total [...] questionnaire of adaptive behavior and function, his children's service worker endorsed significant limitations overall, including the domains [...] would benefit from continued support from a children's service worker/case investigator. He is also encouraged to attempt and [...] that is supported by randomized controlled trials: http://www.REEL Qualified.Go Dish/. Following general sleep hygiene tips may be [...] less importance, to be done over the jail. Some portions of the task should be [...] Angie Magaña PsyD Postdoctoral Fellow in Neuropsychology Vocational Rehabilitation Administratorct technician A postdoctoral fellow in neuropsychology was involved in test administration, interpretation, and report development. The interpretation and integration of pertinent clinical information found in this report was directed and verified by the supervising neuropsychologist/licensed clinical psychologist. [address]: 67 minutes (1 unit) 08002: 1 hour (1 unit) 54910: 1 hour 55 minutes (2 units) 38838: 30 minutes (1 unit) 06144: 4 hours 30 minutes (9 units) Billing [...] state documented in this encounter Care Teams Milk Sampler Relationship Specialty Start Date End Date Anum Perez APRN PCP - General Family Medicine 02/06/20 documented as of this encounter
--- OUTSIDE RECORDS SUMMARY | 2024-03-17 12:47 | XMS_ITS | Encounter Summary ---
Author Organization [facility] Address [address] [place] [address] Care Team Providers Care Commercial Diver Name Role Phone Unavailable Primary Care Provider Unavailabl e Encounter Details Date Type Department Care Team (Late st Contact Info) Description 07/25/2020 11:20 EDT Immunization [facility] Mobile Testing [address] [place] [address] Social History Tobacco Use Types Packs/Day Years [...]
--- OUTSIDE RECORDS SUMMARY | 2024-03-17 12:47 | XMS_ITS | Clinical Summary ---
Author Organization [facility] Address [address] [place] [id number] Care Team Providers Care Hotel Receptionist Name Role Phone Unavailable Primary Care Provider Unavailabl e Encounters Date Type Department Care Team Description 02/17/2024 Lab Requisition [facility] Pathology & Laboratory Medicine - [address] [address] Christopher Curtis MD Dysphagia, unspecified from Last [...] - 19+ 3-dose series) 2011 COVID-19 Vaccine ( season) 11/14/202305/2020, 07/25/2020 Procedures Procedure Name Priority Date/Time Associated [...] explore management options, if applicable. 02/22/2024 11:42 [facility] Final Diagnosis A. DUODENUM, [...] No increase in intraepithelial eosinophils. 02/22/2024 11:42 [facility] Diagnosis Comment The technical component of the specimen processing was performed at the [facility] Pathology Department, [address] [place] [address] (CLIA [id number]). The professional component of the specimen evaluation (slide review and issuing of the final diagnosis) was performed at [facility], [address] [place] [address] (CLIA License Number [id number]). 02/22/2024 11:42 [facility] Attestation By the signature below, the attending physician certifies that they have 1) personally conducted a gross and/or microscopic examination of the described specimen(s), and/or personally interpreted the results of laboratory testing of the described specimen(s), and 2) personally rendered or confirmed the above diagnosis. 02/22/2024 11:42 [facility] at 1142 Clinical History Fatty liver ABD pain Dysphagia Pyrosis 02/22/2024 11:42 [facility] Gross Description A. Received [...] F1. DAIN FLORES(ASCP) 02/18/2024 7:50 02/22/2024 11:42 [facility] Performing Lab [facility] 11:42 EST [facility] Scanned Images 02/22/2024 11:42 [facility] Tissue ESOPHAGEAL STRUCTURE / [...] Unknown 02/16/2024 13:55 EST 02/17/2024 18:30 EST Christopher Curtis MD PATHOLOGY ORDERABLES Final Result [facility] [address] [place] [address] from Last 3 Months Insurance MEDICAID [place] [facility] Address: [address] [id number]
--- OUTSIDE RECORDS SUMMARY | 2024-03-17 12:47 | XMS_ITS | Encounter Summary ---
Author Organization [facility] Address [address] [place] [address] Care Team Providers Care Yard Goods Salesperson Name Role Phone Unavailable Primary Care Provider Unavailabl e Encounter Details Date Type Department Care Team (Late st Contact Info) Description 08/15/2020 10:00 EDT Immunization [facility] Mobile Testing [address] [place] [address] Social History Tobacco Use Types Packs/Day Years [...]
--- OUTSIDE RECORDS SUMMARY | 2024-03-17 12:47 | XMS_ITS | Encounter Summary ---
Author Organization [facility] [place] [address] Care Team Providers Care Copy Camera Operator Name Role Phone Anum Perez APRN Primary Care Provider [phone] Encounter Details Date Type Department Care Team [...] on filedocumented in this encounter Care Teams Copy Camera Operator Relationship Specialty Start Date End Date Anum Perez APRN PCP - General Family Medicine 02/06/20 documented as of this encounter
--- OUTSIDE RECORDS SUMMARY | 2024-03-17 12:47 | XMS_ITS | Encounter Summary ---
Author Organization [facility] [place] [address] Care Team Providers Care Edge Trimming Machine Operator Name Role Phone Anum Perez APRN Primary Care Provider [phone] Encounter Details Date Type Department Care Team [...] on filedocumented in this encounter Care Teams Edge Trimming Machine Operator Relationship Specialty Start Date End Date Anum Perez APRN PCP - General Family Medicine 02/06/20 documented as of this encounter
--- OUTSIDE RECORDS SUMMARY | 2024-03-17 12:47 | XMS_ITS | Data Portability ---
Author Organization [place] - [facility] [place] [address] Care Team Providers Care Oil Well Engineer Name Role Phone MARIKA ABRAHAM Primary Care Provider KVNG ALVARADO Dentist Assessment No assessment recorded. Plan of Treatment Reminders Order Date Submit Date Provider Last Modified By Organization Details Last Modified Time Details Appointments None recorded. Lab CBC w/ auto diff 2023 024 [facility] (Registration ), [address] [place] [address] [place], [address], 4 22:23:47 C-reactiv e protein, quantitat manuel, serum or plasma 2023 024 [facility] (Registration ), [address] [place] [address] [place], [address], 4 09:01:33 CMP, serum or plasma 2023 024 [facility] (Registration ), [address] [place] [address] [place], [address], 4 22:53:47 venipunct ure 2023 024 [email or web address] Not available 11:59:05 urinalysi s, dipstick 2023 024 [email or web address] [facility], [address] [place] [address], [address], [place], [address], 4 12:10:23 Referral None recorded. Procedures None recorded. Surgeries None recorded. Imaging CT, abdomen + pelvis, w/ contrast - LLQ pain X 3 days, r/o diverticu litis 2023 024 [facility], [address], [place], [address], 4 15:27:41 Medication Orders Contrave 8 mg-90 mg tablet,ex tended release 2023 024 [facility], [address] [place] [address], [address], 4 09:35:29 fluticaso ne propionat e 50 mcg/actua tion nasal spray,susan pension 2023 024 [facility]DR[facility], [address] [place] [address], [address], 4 10:04:02 naproxen 500 mg tablet 2023 024 [facility], [address] [place] [address], [address], 4 10:09:40 cyclobenz aprine 10 mg tablet 2023 024 [facility], [address] [place] [address], [address], 4 14:32:44 Protonix 20 mg tablet,de layed release 2023 024 [facility], [address] [place] [address], [address], 4 14:34:29 Patient TargetsNo targets recorded. Patient Instructions Encounter Date Encounter Id Patient Instructions Last Modified By Organization Details Last Modified Time 04/27/2023 [id number] Da start Contrave for wt loss- if the insurance wont cover it- we will order a different medication. 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 start naproxen for pain in your arm, take for 2 weeks with food. fax number for [facility] [phone] follow up in 6 weeks Not available 05/26/2023 10:30:41 06/29/2023 [id number] Da: start cyclobenzaprine for muscle spasm, continue naproxen (anti-inflammatory) , start protonix for heartburn every morning for 10 days. stop naltrexone follow up with Marika early next week. Not available 06/29/2023 14:35:35 07/12/2023 [id number] Call [facility] [phone] for a new patient packet and a new pt visit- have Cesar call and complete paper work for you. Not available 07/12/2023 16:34:16 Reason for Referral None Reported. Results Created Date Observation Date Name Description Value Unit Range Abnormal Flag Note LastModifiedBy Organization Detail LastModifiedTime 06/28/19 24 06/28/2023 COMPL ETE BLOOD COUNT W/DIF F WBC 10.42 10_3/ uL 4.4-10 .8 normal Not Available [address] [place], [address] 06/28/2023 22:23:47 06/28/19 24 06/28/2023 COMPL ETE BLOOD COUNT W/DIF F RBC 5.25 10_6/ uL 4.36-5 .78 normal Not Available [address] [place], [address] 06/28/2023 22:23:47 06/28/19 24 06/28/2023 COMPL ETE BLOOD COUNT W/DIF F HGB 15.5 g/dL 13.5-1 7.5 normal Not Available [address] [place], [address] 06/28/2023 22:23:47 06/28/19 24 06/28/2023 COMPL ETE BLOOD COUNT W/DIF F HCT 47.3 % 40.0-5 0.0 normal Not Available [address] [place], [address] 06/28/2023 22:23:47 06/28/19 24 06/28/2023 COMPL ETE BLOOD COUNT W/DIF F MCV 90 fL 80-95 normal Not Available Trav [address] [place], [address] 06/28/2023 22:23:47 06/28/19 24 06/28/2023 COMPL ETE BLOOD COUNT W/DIF F MCH 29.5 pg 27.0-3 3.0 normal Not Available [address] [place], [address] 06/28/2023 22:23:47 06/28/19 24 06/28/2023 COMPL ETE BLOOD COUNT W/DIF F MCHC 32.8 % 32.0-3 6.0 normal Not Available [address] [place], [address] 06/28/2023 22:23:47 06/28/19 24 06/28/2023 COMPL ETE BLOOD COUNT W/DIF F RDW 12.4 % 11.8-1 4.1 normal Not Available [address] [place], [address] 06/28/2023 22:23:47 06/28/19 24 06/28/2023 COMPL ETE BLOOD COUNT W/DIF F platelet count 326 10_3/ uL 130-40 0 normal Not Available [address] [place], [address] 06/28/2023 22:23:47 06/28/19 24 06/28/2023 COMPL ETE BLOOD COUNT W/DIF F MPV 10.0 fL 8.0-11 .0 normal Not Available [address] [place], [address] 06/28/2023 22:23:47 06/28/19 24 06/28/2023 COMPL ETE BLOOD COUNT W/DIF F neutrophils % 58.4 Not Available [address] [place], [address] 06/28/2023 22:23:47 06/28/19 24 06/28/2023 COMPL ETE BLOOD COUNT W/DIF F lymphocytes % 30.5 Not Available [address] [place], [address] 06/28/2023 22:23:47 06/28/19 24 06/28/2023 COMPL ETE BLOOD COUNT W/DIF F monocytes % 8.1 Not Available [address] [place], [address] 06/28/2023 22:23:47 06/28/19 24 06/28/2023 COMPL ETE BLOOD COUNT W/DIF F eosinophils % 1.5 Not Available [address] [place], [address] 06/28/2023 22:23:47 06/28/19 24 06/28/2023 COMPL ETE BLOOD COUNT W/DIF F basophils % 0.7 Not Available [address] [place], [address] 06/28/2023 22:23:47 06/28/19 24 06/28/2023 COMPL ETE BLOOD COUNT W/DIF F immature grans % 0.8 Not Available [address] [place], [address] 06/28/2023 22:23:47 06/28/19 24 06/28/2023 COMPL ETE BLOOD COUNT W/DIF F nucleated RBC 0.0 % 0.0-0. 3 normal Not Available [address] [place], [address] 06/28/2023 22:23:47 06/28/19 24 06/28/2023 COMPL ETE BLOOD COUNT W/DIF F absolute neutrophil count 6.09 10_3/ uL 1.2-6. 7 normal Not Available [address] [place], [address] 06/28/2023 22:23:47 06/28/19 24 06/28/2023 COMPL ETE BLOOD COUNT W/DIF F absolute lymphocyte count 3.18 10_3/ uL 1.2-3. 4 normal Not Available [address] [place], [address] 06/28/2023 22:23:47 06/28/19 24 06/28/2023 COMPL ETE BLOOD COUNT W/DIF F absolute monocyte count 0.84 10_3/ uL 0.1-0. 8 high Not Available [address] [place], [address] 06/28/2023 22:23:47 06/28/19 24 06/28/2023 COMPL ETE BLOOD COUNT W/DIF F absolute eosinophil count 0.16 10_3/ uL 0.0-0. 7 normal Not Available [address] [place], [address] 06/28/2023 22:23:47 06/28/19 24 06/28/2023 COMPL ETE BLOOD COUNT W/DIF F absolute basophil count 0.07 10_3/ uL 0.0-0. 2 normal Not Available [address] [place], [address] 06/28/2023 22:23:47 06/28/19 24 06/28/2023 COMPR EHENS MANUEL METAB OLIC PANEL calcium 9.3 mg/dL 8.5-10 .1 normal Not Available [address] [place], [address] 06/28/2023 22:53:47 06/28/19 24 06/28/2023 COMPR EHENS MANUEL METAB OLIC PANEL glucose 97 mg/dL 74-106 normal Not Available Trav [address] [place], [address] 06/28/2023 22:53:47 06/28/19 24 06/28/2023 COMPR EHENS MANUEL METAB OLIC PANEL BUN 14 mg/dL 7-18 normal Not Available Trav [address] [place], [address] 06/28/2023 22:53:47 06/28/19 24 06/28/2023 COMPR EHENS MANUEL METAB OLIC PANEL creatinine 1.0 mg/dL 0.70-1 .30 normal Not Available [address] [place], [address] 06/28/2023 22:53:47 06/28/19 24 06/28/2023 COMPR EHENS [...] young er-ag ed adult s. Not Available [address] [place], [address] 06/28/2023 22:53:47 06/28/19 24 06/28/2023 COMPR EHENS MANUEL METAB OLIC PANEL total protein 7.0 g/dL 6.4-8. 2 normal Not Available [address] [place], [address] 06/28/2023 22:53:47 06/28/19 24 06/28/2023 COMPR EHENS MANUEL METAB OLIC PANEL albumin 4.3 g/dL 3.4-5. 0 normal Not Available [address] [place], [address] 06/28/2023 22:53:47 06/28/19 24 06/28/2023 COMPR EHENS MANUEL METAB OLIC PANEL bilirubin, total 0.7 mg/dL 0.2-1. 0 normal Not Available [address] [place], [address] 06/28/2023 22:53:47 06/28/19 24 06/28/2023 COMPR EHENS MANUEL METAB OLIC PANEL alk phos 89 U/L 46-116 normal Not Available [address] [place], [address] 06/28/2023 22:53:47 06/28/19 24 06/28/2023 COMPR EHENS MANUEL METAB OLIC PANEL sodium 142 mmol/ L 136-14 5 normal Not Available [address] [place], [address] 06/28/2023 22:53:47 06/28/19 24 06/28/2023 COMPR EHENS MANUEL METAB OLIC PANEL potassium 4.6 mmol/ L 3.5-5. 1 normal Not Available [address] [place], [address] 06/28/2023 22:53:47 06/28/19 24 06/28/2023 COMPR EHENS MANUEL METAB OLIC PANEL chloride 106 mmol/ L 98-107 normal Not Available [address] [place], [address] 06/28/2023 22:53:47 06/28/19 24 06/28/2023 COMPR EHENS MANUEL METAB OLIC PANEL CO2 28.1 mmol/ L 21.0-3 2.0 normal Not Available [address] [place], [address] 06/28/2023 22:53:47 06/28/19 24 06/28/2023 COMPR EHENS MANUEL METAB OLIC PANEL anion gap 7.9 mmol/ L 3-11 normal Not Available [address] [place], [address] 06/28/2023 22:53:47 06/28/19 24 06/28/2023 COMPR EHENS MANUEL METAB OLIC PANEL AST 19 U/L 15-37 normal Not Available Trav alvarado [address] [place], [address] 06/28/2023 22:53:47 06/28/19 24 06/28/2023 COMPR EHENS MANUEL METAB OLIC PANEL ALT 58 U/L 16-63 normal Not Available Trav alvarado [address] [place], [address] 06/28/2023 22:53:47 06/28/19 24 06/28/2023 C-JOE CTIVE PROTE IN C-reactive protein < 0.50 mg/dL <or=0. 5 Not Available [facility] (Registration ) [address] [place] [address] [place], [address], 06/28/2023 22:53:48 06/28/19 24 06/28/2023 urina lysis , dipst ick Leukocytes Trace Not Available [address], [place], [address], 06/28/2023 12:00:44 06/28/19 24 06/28/2023 urina lysis , dipst ick Nitrite negati ve Not Available [address] [address], [place], [address], 06/28/2023 12:00:44 06/28/19 24 06/28/2023 urina lysis , dipst ick Urobilinogen .2 Not Available [address] [address], [place], [address], 06/28/2023 12:00:44 06/28/19 24 06/28/2023 urina lysis , dipst ick Protein Trace Not Available [address] [address], [place], [address], 06/28/2023 12:00:44 06/28/19 24 06/28/2023 urina lysis , dipst ick pH 5.0 Not Available [address], [place], [address], 06/28/2023 12:00:44 06/28/19 24 06/28/2023 urina lysis , dipst ick Blood Negati ve Not Available [address] [address], [place], [address], 06/28/2023 12:00:44 06/28/19 24 06/28/2023 urina lysis , dipst ick Specific [place] 1.025 Not Available Nort[facility] [address], [place], [address], 06/28/2023 12:00:44 06/28/19 24 06/28/2023 urina lysis , dipst ick Ketone Negati ve Not Available [address], [place], [address], 06/28/2023 12:00:44 06/28/19 24 06/28/2023 urina lysis , dipst ick Bilirubin Small Not Available [address], [place], [address], 06/28/2023 12:00:44 06/28/19 24 06/28/2023 urina lysis , dipst ick Glucose Negati ve Not Available [address], [place], [address], 06/28/2023 12:00:44 06/28/19 24 06/28/2023 urina lysis , dipst ick Appearance Clear Not Available Adelfo doshi [address], [place], [address], 06/28/2023 12:00:44 06/28/19 24 06/28/2023 urina lysis , dipst ick Color [place] Not Available [address], [place], [address], 06/28/2023 12:00:44 02/17/20 24 02/17/2024 LIPAS E lipase 60 U/L <78 Not Available Trav alvarado [facility] [address] , [place], [address] 02/17/2024 18:59:17 02/17/20 24 02/17/2024 MAGNE SIUM magnesium 2.1 mg/dL 1.8-2. 4 normal Not Available [address] [place], [address] 02/17/2024 18:41:20 02/17/20 24 02/17/2024 COMPR EHENS MANUEL METAB OLIC PANEL calcium 8.9 mg/dL 8.5-10 .1 normal Not Available [address] [place], [address] 02/17/2024 18:41:19 02/17/20 24 02/17/2024 COMPR EHENS MANUEL METAB OLIC PANEL glucose 94 mg/dL 74-106 normal Not Available Trav alvarado [address] [place], [address] 02/17/2024 18:41:19 02/17/20 24 02/17/2024 COMPR EHENS MANUEL METAB OLIC PANEL BUN 11 mg/dL 7-18 normal Not Available Trav alvarado [address] [place], [address] 02/17/2024 18:41:19 02/17/20 24 02/17/2024 COMPR EHENS MANUEL METAB OLIC PANEL creatinine 1.1 mg/dL 0.70-1 .30 normal Not Available [address] [place], [address] 02/17/2024 18:41:19 02/17/20 24 02/17/2024 COMPR EHENS MANUEL METAB OLIC PANEL estimated GFR 92.04 mL/min /1.73M 2 The eGFR is calcu lated from [...] young er-ag ed adult s. Not Available [address] [place], [address] 02/17/2024 18:41:19 02/17/20 24 02/17/2024 COMPR EHENS MANUEL METAB OLIC PANEL total protein 7.3 g/dL 6.4-8. 2 normal Not Available [address] [place], [address] 02/17/2024 18:41:19 02/17/20 24 02/17/2024 COMPR EHENS MANUEL METAB OLIC PANEL albumin 4.2 g/dL 3.4-5. 0 normal Not Available [address] [place], [address] 02/17/2024 18:41:19 02/17/20 24 02/17/2024 COMPR EHENS MANUEL METAB OLIC PANEL bilirubin, total 0.72 mg/dL 0.2-1. 0 normal Not Available [address] [place], [address] 02/17/2024 18:41:19 02/17/20 24 02/17/2024 COMPR EHENS MANUEL METAB OLIC PANEL alk phos 88 U/L 46-116 normal Not Available [address] [place], [address] 02/17/2024 18:41:19 02/17/20 24 02/17/2024 COMPR EHENS MANUEL METAB OLIC PANEL sodium 145 mmol/ L 136-14 5 normal Not Available [address] [place], [address] 02/17/2024 18:41:19 02/17/20 24 02/17/2024 COMPR EHENS MANUEL METAB OLIC PANEL potassium 4.2 mmol/ L 3.5-5. 1 normal Not Available [address] [place], [address] 02/17/2024 18:41:19 02/17/20 24 02/17/2024 COMPR EHENS MANUEL METAB OLIC PANEL chloride 108 mmol/ L 98-107 high Not Available [address] [place], [address] 02/17/2024 18:41:19 02/17/20 24 02/17/2024 COMPR EHENS MANUEL METAB OLIC PANEL CO2 27.8 mmol/ L 21.0-3 2.0 normal Not Available [address] [place], [address] 02/17/2024 18:41:19 02/17/20 24 02/17/2024 COMPR EHENS MANUEL METAB OLIC PANEL anion gap 9.2 mmol/ L 3-11 normal Not Available [address] [place], [address] 02/17/2024 18:41:19 02/17/20 24 02/17/2024 COMPR EHENS MANUEL METAB OLIC PANEL AST 16 U/L 15-37 normal Not Available Trav alvarado [address] [place], [address] 02/17/2024 18:41:19 02/17/20 24 02/17/2024 COMPR EHENS MANUEL METAB OLIC PANEL ALT 40 U/L 16-63 normal Not Available Trav [address] [place], [address] 02/17/2024 18:41:19 02/17/20 24 02/17/2024 COMPL ETE BLOOD COUNT W/DIF F WBC 8.56 10_3/ uL 4.4-10 .8 normal Not Available [address] [place], [address] 02/17/2024 18:18:15 02/17/20 24 02/17/2024 COMPL ETE BLOOD COUNT W/DIF F RBC 5.15 10_6/ uL 4.36-5 .78 normal Not Available [address] [place], [address] 02/17/2024 18:18:15 02/17/20 24 02/17/2024 COMPL ETE BLOOD COUNT W/DIF F HGB 14.9 g/dL 13.5-1 7.5 normal Not Available [address] [place], [address] 02/17/2024 18:18:15 02/17/20 24 02/17/2024 COMPL ETE BLOOD COUNT W/DIF F HCT 45.5 % 40.0-5 0.0 normal Not Available [address] [place], [address] 02/17/2024 18:18:15 02/17/20 24 02/17/2024 COMPL ETE BLOOD COUNT W/DIF F MCV 88 fL 80-95 normal Not Available [address] [place], [address] 02/17/2024 18:18:15 02/17/20 24 02/17/2024 COMPL ETE BLOOD COUNT W/DIF F MCH 28.9 pg 27.0-3 3.0 normal Not Available [address] [place], [address] 02/17/2024 18:18:15 02/17/20 24 02/17/2024 COMPL ETE BLOOD COUNT W/DIF F MCHC 32.7 % 32.0-3 6.0 normal Not Available [address] [place], [address] 02/17/2024 18:18:15 02/17/20 24 02/17/2024 COMPL ETE BLOOD COUNT W/DIF F RDW 12.3 % 11.8-1 4.1 normal Not Available [address] [place], [address] 02/17/2024 18:18:15 02/17/20 24 02/17/2024 COMPL ETE BLOOD COUNT W/DIF F platelet count 308 10_3/ uL 130-40 0 normal Not Available [address] [place], [address] 02/17/2024 18:18:15 02/17/20 24 02/17/2024 COMPL ETE BLOOD COUNT W/DIF F MPV 9.3 fL 8.0-11 .0 normal Not Available [address] [place], [address] 02/17/2024 18:18:15 02/17/20 24 02/17/2024 COMPL ETE BLOOD COUNT W/DIF F neutrophils % 56.6 % Not Available [facility] [address] [place], [address] 02/17/2024 18:18:15 02/17/20 24 02/17/2024 COMPL ETE BLOOD COUNT W/DIF F lymphocytes % 32.5 % Not Available [facility] [address], [place], [address] 02/17/2024 18:18:15 02/17/20 24 02/17/2024 COMPL ETE BLOOD COUNT W/DIF F monocytes % 8.1 % Not Available [address] [facility] [place], [address] 02/17/2024 18:18:15 02/17/20 24 02/17/2024 COMPL ETE BLOOD COUNT W/DIF F eosinophils % 1.6 % Not Available [address] [place], [address] 02/17/2024 18:18:15 02/17/20 24 02/17/2024 COMPL ETE BLOOD COUNT W/DIF F basophils % 0.7 % Not Available [address] [facility] [place], [address] 02/17/2024 18:18:15 02/17/20 24 02/17/2024 COMPL ETE BLOOD COUNT W/DIF F immature grans % 0.5 % Not Available [address] [place], [address] 02/17/2024 18:18:15 02/17/20 24 02/17/2024 COMPL ETE BLOOD COUNT W/DIF F nucleated RBC 0.0 % 0.0-0. 3 normal Not Available [address] [facility] [place], [address] 02/17/2024 18:18:15 02/17/20 24 02/17/2024 COMPL ETE BLOOD COUNT W/DIF F absolute neutrophil count 4.85 10_3/ uL 1.2-6. 7 normal Not Available [address] [facility] [place], [address] 02/17/2024 18:18:15 02/17/20 24 02/17/2024 COMPL ETE BLOOD COUNT W/DIF F absolute lymphocyte count 2.78 10_3/ uL 1.2-3. 4 normal Not Available [address] [facility] [place], [address] 02/17/2024 18:18:15 02/17/20 24 02/17/2024 COMPL ETE BLOOD COUNT W/DIF F absolute monocyte count 0.69 10_3/ uL 0.1-0. 8 normal Not Available [address] [place], [address] 02/17/2024 18:18:15 02/17/20 24 02/17/2024 COMPL ETE BLOOD COUNT W/DIF F absolute eosinophil count 0.14 10_3/ uL 0.0-0. 7 normal Not Available [address] [place], [address] 02/17/2024 18:18:15 02/17/20 24 02/17/2024 COMPL ETE BLOOD COUNT W/DIF F absolute basophil count 0.06 10_3/ uL 0.0-0. 2 normal Not Available [address] [place], [address] 02/17/2024 18:18:15 06/25/19 24 06/25/2023 x-ray imagi amos Peacock t Name: James tyraWillam R Unit #: [id number] Loc: ER Orderbill Sadler er: Enrique Calderón M.D. Accoun t #: [id number] Status : REG ER Primar y Counts Include [facility] er: Phillip Abraham Date of Exam: Sex: M Admiss ion [...] Dictat ed By: Brad Tinsley M.D. [id number] 153 Transc ribed By: Laureano PAUL,Mabel tanner 153 This is privil eged, confid ential inform ation intend ed only for the provid er named. Any use or distri bution by any person other than this provid er is strict ly prohib ited. If you receiv e this report in error, please notify us immedi ately at [phone] and return the origin al report to us at the addres s above. Thank- you. the6 [facility] [address], [place], [address] 06/25/2023 16:26:38 06/28/19 24 06/28/2023 CT, abdom en + pelvi s, w/ contr ast Patibay t Name: James mary Ch ad R Unit #: [id number] Loc: DI Orderi ng Provid er: SAMANTHA CASH t #: [id number] Status : REG CLI Primar y [...] RADHA: 1. Examin ation limite d by patien t motion artifa ct. 2. No acute abdomi nal or pelvic proces s. 3. Hepati c steato sis. RADIAT ION DOSE DELIVE RED: 2,528. 07mGy. cm Total DLP DATA REPOSI TORY: All CT scans at this facili ty are submit jackie to the Nation al Radiol ogy Data Regist ry (NRDR) Dose Index Regist ry (DIR) with the [place] leonardo vidal of Radiol ogy (ACR). RADIAT ION OPTIMI ZATION : All CT scans at this facili ty use at least one of these dose optimi zation techni ques: automa jackie exposu re contro l; mA and/or kV adjust ment per patien t size (inclu javy target ed exams where dose is matche d to clinic al indica tion); or iterat manuel recons tructi on. 0415-0 019: Total DLP = 0.00 mGy-cm Ordere d By: SAMANTHA CASH CC: ------ ------ ------ ------ ------ ------ ------ ------ ------ ------ ------ ------ ---- Dictat ed By: Lb Campbell M.D. 1504 150 Transc ribed By: Lb Campbell 150 This is privil eged, confid ential inform ation intend ed only for the provid er named. Any use or distri bution by any person other than this provid er is strict ly prohib ited. If you receiv e this report in error, please notify us immedi ately at [phone] and return the origin al report to us at the addres s above. Thank- you. [facility] [address], [place], [address], 06/28/2023 19:35:09 11/29/19 24 10/07/2021 XR, knee [...] Not Available 11/28 04:07:01 11/29/19 24 11/06/2019 lenin ZIMMERMAN um No observ ation record ed. Not [...] ation record ed. Not Available 11/28 04:07:12 01/21/20 24 01/21/2024 CT imagi ng repor t Patien t Name: James maryWillam ad R Unit #: [id number] Loc: DI Orderi ng Provid er: Sandra Vergara SAP TRAINER Accoun t #: [id number] Status : REG CLI Primar y Care Provid er: Phillip Abraham linda GRADUATE STUDIES DEAN Date of Exam: 11/05 Sex: M : 1990 Age: 33 Exam(s ) a CT:CT sinus wo Exam(s ) CT SINUS WO EXAM: CT SINUS WO CLINIC AL HISTOR Y: Chroni c postna joycelyn drip,r hiniti s,nasa l conges tion,r 09.81, j31.0, r09.82 . Evalua te for sinusi tis. TECHNI QUE: Imagin g Protoc ol: Axial comput ed tomogr aphy images with zamora l and sagitt al reform atted images were create d and review ed. COMPAR QUAN: MR MRI - BRAIN WO CONTRA ST from 2017 FINDIN GS: Fronta l sinuse s: Normal ly aerate d. Ethmoi d air cells: Minima l ethmoi d mucosa l thicke rayo. Maxill kofi sinuse s: Minima l mucous retent ion along the 911 emergency services dispatcher ior and infero medial looney of the left maxill kofi sinus. Spheno id sinuse s: Normal ly aerate d. Ostiom eatal comple xes: Patent . Nasal cavity : Septum is mildly deviat ed toward the left. No modesto bullos a. No visibl e nasal polyps . Visual ized region al soft tissue s: No acute findin gs. Orbits : Unrema rkable . Bones: Unrema rkable . Mastoi d Air Cells: Normal ly aerate d. Visual ized portio ns of the brain: Unrema rkable as visual ized. IMPRES RADHA: Minima l mucosa l thicke rayo ethmoi d and left maxill kofi sinus. RADIAT ION DOSE DELIVE RED: Total DLP DATA REPOSI TORY: All CT scans at this facili ty are submit jackie to the [facility] Radiol ogy Data Regist ry (NRDR) Dose Index Regist ry (DIR) with the [employer] [facility] [employer]iol [facility] (ACR). RADIAT ION OPTIMI ZATION : All CT scans at this facili ty use at least one of these dose optimi zation techni ques: automa jackie exposu re contro l; mA and/or kV adjust ment per patien t size (inclu javy target ed exams where dose is matche d to clinic al indica tion); or iterat manuel recons tructi on. 1108-0 012: Total DLP = 0.00 mGy-cm Ordere d By: Sandra Vergara SAP TRAINER CC: ------ ------ ------ ------ ------ ------ ------ ------ ------ ------ ------ ------ ---- Dictat ed By: Arnulfo Moser 162 162 Transc ribed By: Lasha Gonzalez 1620 This is privil eged, confid ential inform ation intend ed only for the provid er named. Any use or distri bution by any person other than this provid er is strict ly prohib ited. If you receiv e this report in error, please notify us immedi roberly at [phone] and return the origin al report to us at the addres s above. Thank- you. 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 TECHNI QUE: Imagin g Protoc ol: Axial comput ed tomogr aphy images with zamora l and sagitt al reform atted images were create d and review ed. COMPAR QUAN: CT CT ABDOME N PELVIS W from 2023 FINDIN GS: Lack of IV contra st does limit evalua tion of the solid organs . ABDOME N: Lung Bases: Normal where visual ized. Liver: There is diffus e decrea sed attenu ation of the liver consis tent with fatty infilt ration . The liver is enlarg ed measur ing 19 cm long. No measur able mass. Gallbl adder and biliar y tract: No radiod ense calcul us or biliar y ductal dilati on. Pancre as: Normal densit y, no abnorm al calcif icatio ns or inflam matory proces s. Spleen : Normal . Kidney s: Normal size, contou r and axis.N o radiod ense stones or obstru ctive uropat hy. No masses seen. Adrena l glands : No mass is seen. Lymph nodes: Within normal limits . Abdomi nal Aorta: Abdomi nal portio n non-di lated. PELVIS : Bladde r:Symm etric disten tion, no gross wall thicke rayo. Bowel: No obstru ction or bowel wall thicke rayo. No eviden ce of append icitis . The stomac h is incomp letely disten ded limiti ng evalua tion. Perito shaji cavity : No ascite s, collec tion or mesent ian inflam matory respon se. No free air. Reprod uctive organs : Unrema rkable as visual ized. Bones: Within normal limits . Soft Tissue s: Within normal limits . IMPRES RADHA: No acute abdomi nal or pelvic proces s. RADIAT ION DOSE DELIVE RED: 799.5m Gy.cm Total DLP DATA REPOSI TORY: All CT scans at this facili ty are submit jackie to the [facility] al Radiol ogy Data Regist ry (NRDR) Dose Index Regist ry (DIR) with the [employer] leon[employer] vidal of Radiol ogy (ACR). RADIAT ION OPTIMI ZATION : All CT scans at this facili ty use at least one of these dose optimi zation techni ques: automa jackie exposu re contro l; mA and/or kV adjust ment per patien t size (inclu javy target ed exams where dose is matche d to clinic al indica tion); or iterat manuel recons tructi on. 1205-0 035: Total DLP = 0.00 mGy-cm Ordere d By: Miguel A Bell SAP TRAINER CC: ------ ------ ------ ------ ------ ------ ------ ------ ------ ------ ------ ------ ---- Dictat ed By: Lb Campbell M.D. [id number] 52 Transc ribed By: Lb Campbell 0852 This is privil eged, confid ential inform ation intend ed only for the provid er named. Any use or distri bution by any person other than this provid er is strict ly prohib ited. If you receiv e this report in error, please notify us immedi ately at and return the origin al report to us at the addres s above. Thank- you. INTERFACE [address] [place], [address] 02/18/2024 08:57:17 Result Notes None recorded. Problems Name Problem SNOMED Code Status Onset Date Resolution Date Notes Provider Name and Address Organization Details Recorded Time Mild intermit tent asthma 828191108 Active 2010 Problem Code: J45.20; Problem Code Type: ICD-10; Not Available [facility] 3 03:53:12 Mood disorder 36588342 Active 2010 Problem Code: F39; Problem Code Type: ICD-10; Not Available [facility] 3 03:53:12 Fracture of lumbar spine 034950255 Active 2008 Problem Code: S32.009; Problem Code Type: ICD-10; Not Available [facility] 3 03:53:12 Disorder of psycholo gical developm ent 870823903 Active 201506/27/19 21 - Comments only - Marika Abraham SAP TRAINER - Has a block and case maker Rohan out of [facility]. Pt lives alone Problem Code: F88; Problem Code Type: ICD-10; Not Available [facility] 3 03:53:12 Adult health examinat ion Active 2016 Problem Code: Z00.00; Problem Code Type: ICD-10; Not Available [facility] 3 03:53:12 Allergic rhinitis 82881205 Active 2016 Problem Code: J30.9; Problem Code Type: ICD-10; Not Available [facility] 3 03:53:12 Oppositi onal defiant disorder 47183158 Active 2017 Problem Code: F91.3; Problem Code Type: ICD-10; Not Available [facility] 3 03:53:12 Hallucin ations 0747258 Active 2017 Problem Code: R44.2; Problem Code Type: ICD-10; Not Available [facility] 3 03:53:13 Temporom andibula r joint disorder 37460717 Completed 201712/17/2017 Problem Code: M26.69; Problem Code Type: ICD-10; Not Available [facility] 3 03:53:13 Temporom andibula r joint disorder 13669913 Active 2017 Problem Code: M26.69; Problem Code Type: ICD-10; Not Available [facility] 3 03:53:13 Precordi al pain 89786158 Completed 201806/22/2018 Problem Code: R07.2; Problem Code Type: ICD-10; Not Available [facility] 3 03:53:13 Low back pain 307298802 Active 201812/07/19 20 - Comments only - Marika Abraham SAP TRAINER - trialing suppleme nts will return prn- does a lot of heavy lifting with [employer] Problem Code: M54.5; Problem Code Type: ICD-10; Not Available [facility] 3 03:53:13 Hydrocel e of testis 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 [facility] ed supporti isa rinaldi Problem Code: N43.3; Problem Code Type: ICD-10; Not Available [facility] 3 03:53:13 Steatosi s of liver 335252409 Active 2019 Problem Code: K76.0; Problem Code Type: ICD-10; Not Available [facility] 3 03:53:14 Hemorrho ids 67903910 Active 2019 Problem Code: K64.8; Problem Code Type: ICD-10; Not Available [facility] 3 03:53:14 Plantar fascial fibromat osis 14167300 Active 202006/27/19 21 - Comments only - Marika Abraham SAP TRAINER - Started PT DX plantar fasciiti s, [...] M72.2; Problem Code Type: ICD-10; Not Available [facility] 3 03:53:14 Pain in lower limb 90467348 Active 202009/24/19 21 - Comments only - Marika Abraham SAP TRAINER - seen by [facility]- unknown etiology , suggest possible rheumato logic cause, getting bilatera l xrays of BLE-? stress fx. Problem Code: M79.669; Problem Code Type: ICD-10; Not Available [facility] 3 03:53:14 Body mass index 30+ - obesity 912512109 Active 2020 Problem Code: Z68.37; Problem Code Type: ICD-10; Not Available [facility] 3 03:53:14 Hypergly cemia 65635643 Active 2020 Problem Code: R73.9; Problem Code Type: ICD-10; Not Available [facility] 3 03:53:14 Radial styloid tenosyno vitis 01017955 Active 202109/12/19 22 - Comments only - Marika Abraham SAP TRAINER - 4 seasons ortho: fitted w/thumb spica brace, advised voltaren gel and APAP, f/u 2-3 months prn Problem Code: M65.4; Problem Code Type: ICD-10; Not Available [facility] 3 03:53:14 Autistic disorder 387702064 Active 202105/24/19 22 - Comments only - Marika Abraham SAP TRAINER - see disabili ty evaluati on 04/2021 Problem Code: F84.0; Problem Code Type: ICD-10; Not Available [facility] 3 03:53:15 Snoring 10876215 Active 2021 Problem Code: R06.83; Problem Code Type: ICD-10; Not Available [facility] 03:[facility]:15 Fatigue 08152148 Active 2021 Problem Code: R53.83; Problem Code Type: ICD-10; Not Available [facility] 3 03:53:15 Joint pain 62523666 Active 2021 Problem Code: M25.50; Problem Code Type: ICD-10; Not Available [facility] 3 03:53:15 Pain of joint of knee 5101558229 Active 2021 Problem Code: M25.569; Problem Code Type: ICD-10; Not Available [facility] 3 03:53:15 Hypertro phic conditio n of skin 62732514 Active 2021 Problem Code: L91.8; Problem Code Type: ICD-10; Not Available [facility] 3 03:53:16 Dementia 19456153 Active 2021 Problem Code: F03.90; Problem Code Type: ICD-10; Not Available [facility] 3 03:53:16 Pain of left wrist 87363905551 9102 Active 202102/26/20 22 - Comments only - Marika Abraham SAP TRAINER - [facility] ortho: Clinical exam notes wrist pain that [...] M25.532; Problem Code Type: ICD-10; Not Available [facility] 3 03:53:16 Visual disturba nce 68429008 Active 202204/06/19 23 - Comments only - Marika Abraham SAP TRAINER - Refracti ve ofAmblyo teresa bilatera l, Regular astigmat ism bilatera l Problem Code: H53.9; Problem Code Type: ICD-10; Not Available [facility] 3 03:53:16 Dizzines s and giddines s 215965131 Active 202204/06/19 23 - Comments only - Marika Abraham SAP TRAINER - Unlikely related to vision Problem Code: R42; Problem Code Type: ICD-10; Not Available [facility] 3 03:53:16 Obstruct manuel sleep apnea syndrome 33524552 Active 2022 Problem Code: G47.33; Problem Code Type: ICD-10; Not Available [facility] 3 03:53:17 Pleuriti c pain 4458333 Completed 201801/11/2019 Problem Code: R07.81; Problem Code Type: ICD-10; Not Available [facility] 3 03:53:19 Lung field abnormal 188157056 Completed 201906/26/2020 Problem Code: R91.8; Problem Code Type: ICD-10; Not Available [facility] 3 03:53:20 Cough 54560801 Completed 201409/26/2015 Problem Code: R05; Problem Code Type: ICD-10; Not Available [facility] 3 03:53:21 Disorder of soft tissue 66225490 Completed 201912/07/2019 Problem Code: M70.90; Problem Code Type: ICD-10; Not Available [facility] 3 03:53:22 Developm ental academic disorder 4206972 Completed 201512/20/2017 Problem Code: F81.9; Problem Code Type: ICD-10; Not Available [facility] 3 03:53:22 Acute bronchit is 10129281 Completed 201409/26/2015 Problem Code: J20.9; Problem Code Type: ICD-10; Not Available [facility] 3 03:53:22 Headache 98067667 Completed 201612/20/2017 Problem Code: R51; Problem Code Type: ICD-10; Not Available [facility] 3 03:53:23 Arthralg ia of the ankle and/or foot 535369356 Completed 201409/26/2015 Problem Code: M25.571; Problem Code Type: ICD-10; Not Available [facility] 3 03:53:24 Pain of left testicle 75453848061 616953 Completed 201901/03/2020 Problem Code: N50.812; Problem Code Type: ICD-10; Not Available [facility] 3 03:53:24 Musculos keletal symptom 90778038 Completed 201812/07/2019 Problem Code: R29.898; Problem Code Type: ICD-10; Not Available [facility] 3 03:53:25 Anorecta l disorder 567709570 Completed 201906/26/2020 Problem Code: K62.89; Problem Code Type: ICD-10; Not Available [facility] 3 03:53:25 Dizzines s and giddines s 114437176 Completed 201409/26/2015 Problem Code: R42; Problem Code Type: ICD-10; Not Available [facility] 3 03:53:25 Pain in thoracic spine 713618384 Completed 201412/20/2017 Problem Code: M54.9; Problem Code Type: ICD-10; Not Available [facility] 3 03:53:26 Venereal disease screenin g Completed 201701/11/2019 Problem Code: Z11.3; Problem Code Type: ICD-10; Not Available [facility] 3 03:53:26 Pain in left arm 726474214 Completed 201801/11/2019 Problem Code: M79.602; Problem Code Type: ICD-10; Not Available [facility] 3 03:53:26 Hemorrho ids 42539598 Completed 201712/20/2017 Problem Code: K64.9; Problem Code Type: ICD-10; Not Available [facility] 3 03:53:27 Uncompli cated asthma 632086439 Completed 201012/09/2022 Problem Code: J45.909; Problem Code Type: ICD-10; Not Available [facility] 3 03:53:27 Hemorrha ge of rectum and anus 190463993 Completed 201812/07/2019 Problem Code: K62.5; Problem Code Type: ICD-10; Not Available [facility] 3 03:53:27 Heartbur n 83834387 Completed 201612/06/2017 Problem Code: R12; Problem Code Type: ICD-10; Not Available [facility] 3 03:53:28 Epididym itis 35617786 Completed 201509/26/2015 Problem Code: N45.1; Problem Code Type: ICD-10; Not Available [facility] 3 03:53:30 Pain in lower limb 35014654 Completed 201812/07/2019 Problem Code: M79.606; Problem Code Type: ICD-10; Not Available [facility] 3 03:53:31 Notes:*Problem Name: Varicel la [birth year][address] Colin *ICD-10 Codes: *Problem Status: inactive *Comments: *Note Date: 06/15/2012 Problem Notes None recorded. Procedures Surgical History None recorded. Imaging Results Imaging Date Name Status LastModified by Organiz [facility] Details LastModified Time 06/25/2023 x-ray imaging report completed [address], [place], [address] 06/25/2023 16:26:38 06/28/2023 CT, abdomen + pelvis, w/ contrast completed [email or web address] [facility] [address], [place], [address], 06/28/2023 19:35:09 10/07/2021 XR, knee completed Information [...] result completed Information not available 11/29/2023 04:07:12 01/21/2024 CT imaging report completed INTERFACE [address] [place], [address] 01/21/2024 16:33:34 02/18/2024 CT imaging report completed INTERFACE [address] [place], [address] 02/18/2024 08:57:17 Procedure Notes None recorded. Medical Equipment None [...] Not Available Not Available No t Available Gladystofoa m 1 % topical Apply rectally BID, [...] 1 SPRAY IN EACH NOSTRIL IN THE [facility] active Not Available Not Available No t [...] completed Not Available Not Available Not Available [facility] spacer USE DIRECTED 06/27 completed Not Available [...] Updated DateTime 4 171.2 cm 41.2 kg/m2 443094. 37 g 76 /min 116 mm[Hg] 78 mm[Hg] KEYANNA SKINNER LPN [facility] 4 09:42:12 Date Recorded Body height Body mass index (BMI) Body weight Heart rate Systolic blood pressure Diastolic blood pressure Provider Name and Address Organization Details Last Updated DateTime 4 171.2 cm 41.4 kg/m2 083851. 56 g 64 /min 102 mm[Hg] 70 mm[Hg] KEYANNA SKINNER LPN [facility] 4 09:35:24 Date Recorded Body height Body mass index (BMI) Body weight Body temperature Oxygen saturation Oxygen saturation in Arterial blood by Pulse oximetry Heart rate Respiratory rate Systolic blood pressure Diastolic blood pressure Provider Name and Address Organization Details Last Updated DateTime 4 171.2 cm 40.9 kg/m2 658760. 39 g 97.8 [degF] 98 % 98 % 76 /min 18 /min 130 mm[Hg] 83 mm[Hg] Meredith Diane MA [facility] 4 10:59:01 Date Recorded Body height Heart rate Body mass index (BMI) Body weight Systolic blood pressure Diastolic blood pressure Provider Name and Address Organization Details Last Updated DateTime 4 171.2 cm 68 /min 40.9 kg/m2 133349. 49 g 122 mm[Hg] 84 mm[Hg] KEYANNA SKINNER LPN [facility] 4 14:02:32 Date Recorded Body height Body mass index (BMI) Body weight Heart rate Systolic blood pressure Diastolic blood pressure Provider Name and Address Organization Details Last Updated DateTime 4 171.2 cm 40.2 kg/m2 457383. 02 g 70 /min 118 mm[Hg] 72 mm[Hg] KEYANNA SKINNER LPN [facility] 16:07:59 Social History Question Answer Notes LastModified by Organizat ion Details LastModified Time Tobacco Smoking Status Never Smoker WILLIAM Rodriguez, [facility] 06/28/2023 11:03:12 What Was The Date Of Your Most Recent Tobacco Screening? 06/28/2023 Information not available 06/28/2023 Sex: Male Functional Status None recorded. Mental Status None recorded. Family History Nothing Reported Notes:*Problem: Unknown fami ly history. Da is able to tell us that his mother and father are alive but has no information re: any of his family's health status. Medical History No medical history recorded. Immunizations Vaccine Type Date Status Note Provider Nam e and Address Organization Details Recorded Time Influenza, split virus, quadrivalent, PF [address], [facility] [address], [facility] 03/23/2023 10:42:58 COVID-19, mRNA, LNP-S, PF, nahid-sucrose, 30 mcg/0.3 mL [address], [place], [address], [facility] 03/23/2023 10:42:58 MMR 8 completed Not Available [facility] 01/22/2023 04:05:18 MMR 4 completed Not Available [facility] 01/22/2023 04:05:18 Td (adult), 2 Lf tetanus toxoid, preservative free, adsorbed 7 completed Not Available [facility] 01/22/2023 04:05:19 DTaP, unspecified formulation 8 completed Not Available [facility] 01/22/2023 04:05:19 DTaP, unspecified formulation 3 completed Not Available [facility] 01/22/2023 04:05:19 DTaP, unspecified formulation 6 completed Not Available [facility] 01/22/2023 04:05:20 DTaP, unspecified formulation 3 completed Not Available [facility] 01/22/2023 04:05:20 DTaP, unspecified formulation 4 completed Not Available [facility] 01/22/2023 04:05:20 meningococcal ACWY, unspecified formulation 8 completed Not Available [facility] 01/22/2023 04:05:20 Tdap 7 completed Not Available [facility] 01/22/2023 04:05:21 HPV, unspecified formulation 5 completed Not Available [facility] 01/22/2023 04:05:22 HPV, unspecified formulation 4 completed Not Available [facility] 01/22/2023 04:05:22 HPV, unspecified formulation 4 completed Not Available [facility] 01/22/2023 04:05:22 Influenza, split virus, quadrivalent, PF 2 completed Not Available [facility] 01/22/2023 04:05:23 Influenza, split virus, quadrivalent, PF 9 completed Not Available [facility] 01/22/2023 04:05:23 Influenza, split virus, quadrivalent, PF 0 completed Not Available [facility] 01/22/2023 04:05:23 Influenza, split virus, quadrivalent, preservative 8 completed Not Available [facility] 01/22/2023 04:05:24 COVID-19, mRNA, LNP-S, PF, 30 mcg/0.3 mL dose 1 completed Not Available [facility] 01/22/2023 04:05:25 COVID-19, mRNA, LNP-S, PF, 30 mcg/0.3 mL dose 1 completed Not Available [facility] 01/22/2023 04:05:25 COVID-19, mRNA, LNP-S, PF, 30 mcg/0.3 mL dose 1 completed Not Available [facility] 01/22/2023 04:05:25 COVID-19, mRNA, LNP-S, bivalent, PF, 30 mcg/0.3 mL dose 2 completed Not Available [facility] 01/22/2023 04:05:26 Hep B, unspecified formulation 7 completed Not Available [facility] 01/22/2023 04:05:27 Hep B, unspecified formulation 6 completed Not Available [facility] 01/22/2023 04:05:27 Hep B, unspecified formulation 5 completed Not Available [facility] 01/22/2023 04:05:27 influenza, unspecified formulation 5 completed Not Available [facility] 01/22/2023 04:05:28 polio, unspecified formulation 8 completed Not Available [facility] 01/22/2023 04:05:29 polio, unspecified formulation 3 completed Not Available [facility] 01/22/2023 04:05:29 polio, unspecified formulation 3 completed Not Available [facility] 01/22/2023 04:05:30 polio, unspecified formulation 4 completed Not Available [facility] 01/22/2023 04:05:30 Past Encounters Encounter ID Performer Location Encounter Start Date Encounter Closed Date Diagnosis/Indication Diagnosis SNOMED-CT Code Diagnosis ICD10 Code [id number] [address] [address] 02/24/2023 10:39:30 02/24/2023 11:33:09 Mild intermittent asthma 106794460 J45.20 Pain of le ft shoulder joint 0729555825 8615134 M25.896 [id number] MARIKA ABRAHAM [address] [address] 03/22/2023 14:01:15 03/22/2023 15:44:14 Mild intermittent asthma 997622184 J45.20 Pain of le ft shoulder joint 6683453257 3247475 M25.512 Active or passive immunization 418163670 Z23 Burning sensation 781625 00 R20.8 Pain in left foot 025095 7758 40089 M79.672 Nasal congestion 3775817 0 R09.81 Adult heal th examination 462306998 Z00.00 Obesity 739568492 E66.9 Autistic d isorder of childhood onset 71910164 F84.0 [id number] MARIKA ABRAHAM [address] [address] 04/27/2023 09:31:03 04/27/2023 10:16:41 Pain of left shoulder joint 1642455762 1268393 M25.512 Obesity 895037790 E66.9 Nasal congestion 2653283 0 R09.81 [id number] MARIKA ABRAHAM [address] [address] 05/26/2023 09:17:12 05/26/2023 11:01:20 Nasal congestion 34421322 R09.81 Obesity 936930558 E66.9 Pain of le ft shoulder joint 5099901563 3673927 M25.512 Autism spe ctrum disorder 38026541 F84.0 Vertigo 231506838 R42 [id number] ESTELA CASH, [address] [address] 06/28/2023 10:37:54 06/28/2023 12:03:44 Left lower quadrant pain 352296117 R10.32 [id number] [address] [address] 06/29/2023 13:37:59 06/29/2023 14:41:21 Spasm 97074654 R25.2 [id number] [address] [address] 07/12/2023 15:51:40 07/12/2023 16:34:27 Spasm 45627487 R25.2 Health Concerns Section Related Observation LastModified by Organization Detai ls LastModified Time None Recorded Concern Status LastModified by Organization Details LastModified Time None Recorded Advance Directives Directive None Recorded Payers Encounter Date Sequence Insurance Name Policy Number Policy Reynoso Covered Member ID Reynoso Member ID Guarantor Name 04/27/2023 1 [facility] (MEDICAID) Da Lewis [id number] Da Lewis 05/26/2023 1 [facility] (MEDICAID) Da Lewis [id number] Da Ramireztyra 06/28/2023 1 [facility] (MEDICAID) Da R Cleverley [id number] Da R Cleverley 06/29/2023 1 [facility] (MEDICAID) Da R Cleverley [id number] Da R Cleverley 07/12/2023 1 [facility] (MEDICAID) Da Trent Joshua [id number] Da Trent Joshua Notes Date Note Type Note Provider Name and Address Organization Details Recorded Time 04/27/2023 text/html 32 yr old man he re for f/u L shoulder pain, obesity, nasal congestion. HX: developed acutely left posterior shoulder pain along with left arm pain and left sided neck pain. He tried using ibuprofen and ice and Biofreeze without relief, hot showers seem to help. No history of injury.Also reporting increased mucus, thought it was his asthma that was acting up? although his PFTs were negative and normal, reports daily increased mucus- no treatments tried. Coughs up mucus, no overt shortness of breath, no wheezing.Left shoulder pain improved since going to physical [...] would like to discuss weight loss medication. MARIKA ABRAHAM, MICROARRAY SPECIALIST [address], [place], [address], [facility]. 04/27/2023 16:15:53 05/26/2023 text/html 32 yr old man he re for f/u L shoulder pain, obesity, nasal congestion. HX: developed acutely left posterior shoulder pain along with left arm pain and left sided neck pain. He tried using ibuprofen and ice and Biofreeze without relief, hot showers seem to help. No history of injury.Also reporting increased mucus, thought it was his asthma that was acting up? although his PFTs were negative and normal, reports daily increased mucus- no treatments tried. Coughs up mucus, no overt shortness of breath, no wheezing.Left shoulder pain improved since going to physical [...] like to discuss weight loss medication. Today: 24: L Shoulder pain has almost completely resolved going to physical therapy, he is doing home exercise. He does report now getting these electric shocks down his arm into his left hand since working with physical therapy, denies muscle weakness or numbness. He was seen by [facility] neuropsych according to his freight representative Alvino several recommendations were made regarding him meeting with neurology to rule out seizures due to his history of vertigo that also can occur with blood draws, they also made reference to meeting with a shading painter for his chronic pain. He did find his oral appliance and is now treating his AKUA appropriately. He continues to go to the gym a couple times a week using the treadmill and Nautilus equipment. He is on the autism spectrum, lives independently and [facility] in an apartment, has a freight representative through [facility] mental health services. He does not see psychiatry. YENNIFER HELMS [address], [place], [address], [facility]. 05/26/2023 15:21:15 06/28/2023 text/html Patient with carrington den onset LLQ pain 3 days ago, while wiping equipment at gym after exercising. He felt movement inside intestines with severe pain, making it difficult to stand up. Was seen at [facility] due to symptoms. CXR performed, WNL. [...] vomiting. He reports he is eating normal meals.He reports he is urinating more frequently than [...] documented. ESTELA CASH, YENNIFER [address], [place], [address], [facility]. 06/28/2023 12:16:51 06/29/2023 text/html UC note documentation 06/28/23 : Patient with sudden onset LLQ pain 3 days ago, while wiping equipment at gym after exercising. He felt movement inside intestines with severe pain, making it difficult to stand up. Was seen at [facility] due to symptoms. CXR performed, WNL. [...] vomiting. He reports he is eating normal meals.He reports he is urinating more frequently than [...] CMP, CBC, urinalysis, CRP unremarkable Today 06/30/2023 [facility] visit; patient reports the pain is not [...] 06/28/[address] scan at [facility] shows no acute process, only abnormality is fatty liver. MARIKA ABRAHAM, MICROARRAY SPECIALIST [address], [place], [address], [facility]. 06/30/2023 17:02:37 07/12/2023 text/html 33-year-old man here for follow-up muscle pain HX:UC note documentation 06/28/23 : Patient with sudden onset LLQ pain 3 days ago, while wiping equipment at gym after exercising. He felt movement inside intestines with severe pain, making it difficult to stand up. Was seen at [facility] due to symptoms. CXR performed, WNL. [...] vomiting. He reports he is eating normal meals.He reports he is urinating more frequently than [...] 06/28/2023; CMP, CBC, urinalysis, CRP unremarkable 06/30/2023 [facility] visit; patient reports the pain is not [...] 06/28/[address] scan at [facility] shows no acute process, only abnormality is [...] has improved, he never did pick up attendant the Protonix and naproxen he misunderstood the directions. MARIKA ABRAHAM, YENNIFER [address], [place], [address], [facility]. 07/13/2023 09:51:21
--- OUTSIDE RECORDS SUMMARY | 2024-03-17 12:48 | XMS_ITS | Encounter Summary ---
Author Organization [facility] Address [facility] [place] [address] Care Team Providers Care Financial Services Counselor Name Role Phone Anum Perez APRN Primary Care Provider [phone] Encounter Details Date Type Department Care Team (Latest Contact Info) Description 12/25/2022 10:21 AM EDT - 12/25/2022 11:59 PM EDT Hospital Encounter XRay at [address] [place] [address] Eran Schmid MD [facility] [place] [address] Pain in left wrist Discharge Disposition: Home [...] who have questions please contact the health cattle care worker that requested your imaging first. ? Electronically signed by: Skyla Zamarripa MD, [facility] ([phone]), at 12/25/2022 11:36 AM Narrative 12/25/2022 11:36 [...] patients who have questions please contactthe health cattle care worker that requested your imaging first. Eran Schmid MD IMG DX ORDERABLES documented in this encounter Visit Diagnoses Diagnosis Pain in left wrist Pain in joint, forearm documented in this encounter Care Teams Financial Services Counselor Relationship Specialty Start Date End Date Anum Perez APRN PCP - General Family Medicine 02/06/20 documented as of this encounter
--- OUTSIDE RECORDS SUMMARY | 2024-03-17 12:48 | XMS_ITS | Encounter Summary ---
Author Organization [facility] [place] [address] Care Team Providers Care Hvac Technician Name Role Phone Anum Perez APRN Primary Care Provider [phone] Encounter Details Date Type Department Care Team (Late st Contact Info) Description 02/23/2020 Telephone [place] [address] Kaelyn Tinoco Social History Tobacco Use Types Packs/Day Years Used Date Smoking Tobacco: Never Smokeless Tobacco: Never Sex and Gender Information Value Date Recorded Sex Assigned at Not on file Gender Identity Not on file Sexual Orientation Not on file documented as of this encounter Miscellaneous Notes * Telephone Encounter - Kaelyn Tinoco - 02/23/2020 12:55 PM EST Request faxed to [facility] to have them push recent ct imaging documented in this encounter Plan of Treatment Not on file documented as of this encounter Visit Diagnoses Not on filedocumented in this encounter Care Teams Hvac Technician Relationship Specialty Start Date End Date Anum Perez APRN PCP - General Family Medicine 02/06/20 documented as of this encounter
--- OUTSIDE RECORDS SUMMARY | 2024-03-17 12:48 | XMS_ITS | Encounter Summary ---
Author Organization [facility] Address [facility] [place] [address] Care Team Providers Care Nightman Name Role Phone Anum Perez APRN Primary Care Provider Encounter Details Date Type Department Care Team (Latest Contact Info) Description 06/16/2022 12:25 PM EDT - 06/16/2022 11:59 PM EDT Hospital Encounter XRay at [address] [place] [address] Eran Schmid MD [facility] [place] [address] Solitary bone cyst of hand, right Discharge [...] who have questions please contact the health physician assistant primary care that requested your imaging first. ? Narrative 06/16/2022 3:09 PM EDT EXAMINATION: XR [...] patients who have questions please contactthe health physician assistant primary care that requested your imaging first. Eran Schmid MD IMG DX ORDERABLES documented in this encounter Visit Diagnoses Diagnosis Solitary bone cyst of hand, right documented in this encounter Care Teams Nightman Relationship Specialty Start Date End Date Anum Perez APRN PCP - General Family Medicine 02/06/20 documented as of this encounter
--- OUTSIDE RECORDS SUMMARY | 2024-03-17 12:48 | XMS_ITS | Encounter Summary ---
[place] [address] Care Team Providers Care Wireless Sales Expert Name Role Phone Anum Perez APRN Primary Care Provider [phone] Reason for Referral * Consultation (Routine) - Closed Specialty Diagnoses / Procedures Referred By Trina jha Referred To Contact Orthopaedics Diagnoses Pain in left wrist Xavi Bailey MD [address] [place] [address] [facility] [address] [place] [phone] Referral ID Status Reason Start Date Expiration Date V isits Requested Visits Authorized [id number] Closed Consult, Test & Treat PCP Updated and/or Approved 12/12/2021 12/12/2022 6 6 Encounter Details Date Type Department Care Team (Late st Contact Info) Description 12/12/2021 Transcribe Orders eDH Incoming Referrals [phone] Xavi Bailey MD [address] [place], [place] [address] Pain in left wrist Social History Tobacco [...] forearm documented in this encounter Care Teams Wireless Sales Expert Relationship Specialty Start Date End Date Anum Perez APRN PCP - General Family Medicine 02/06/20 documented as of this encounter
--- OUTSIDE RECORDS SUMMARY | 2024-03-17 12:48 | XMS_ITS | Encounter Summary ---
Author Organization [facility] [place] [address] Care Team Providers Care Case Finisher Name Role Phone Anum Perez APRN Primary Care Provider Reason for Visit * Reason Comments Follow-up Solitary bone cyst o f hand, left Encounter Details Date Type Department Care Team (Late st Contact Info) Description 12/25/2022 11:00 AM EDT Office [place] [address] Eran Schmid MD [facility] [place] [address] Solitary bone cyst of hand, right; Pain [...] schedule Binu visit with bilateral wrist Pencil Education Reviewer PA view (Scapholunate stress view) Eran Schmid MD, MPH Department of Orthopaedic Surgery Pediatric Orthopaedic & Hand Surgeon documented in this encounter Plan of Treatment Not on file documented as of this encounter Visit Diagnoses Diagnosis Solitary bone cyst of hand, right Pain in left wrist Pain in joint, forearm documented in this encounter Care Teams Case Finisher Relationship Specialty Start Date End Date Anum Perez APRN PCP - General Family Medicine 02/06/20 documented as of this encounter
--- OUTSIDE RECORDS SUMMARY | 2024-03-17 12:48 | XMS_ITS | Encounter Summary ---
Author Organization [facility] Address [facility] [place] [address] Care Team Providers Care Police Sergeant Precinct Name Role Phone Anum Perez APRN Primary Care Provider [phone] Reason for Visit * Reason Comments Establish Care L WRIST PAIN, CYST * Consultation (Routine) - Closed Specialty Diagnoses / Procedures Referred By Trina jha Referred To Contact Orthopaedics Diagnoses Pain in left wrist Xavi Bailey MD [address] [place] [address] [facility] [address] [place] [address] Referral ID Status Reason Start Date Expiration Date V isits Requested Visits Authorized [id number] Closed Consult, Test & Treat PCP Updated and/or Approved 12/12/2021 12/12/2022 6 6 Encounter Details Date Type Department Care Team (Late st Contact Info) Description 01/20/2022 1:00 PM EST Office [place] [address] Eran Schmid MD [facility] [place] [address] Solitary bone cyst of hand, left Social [...] or Tylenol. Patient is referral from the [facility] after an MRI of the left [...] note supplied by the resident or physician faculty member with whom I saw the patient, and reviewed our findings and recommendations with the patient in person. Eran Schmid MD, MPH Department of Orthopaedic Surgery Pediatric Orthopaedic & Hand Surgeon documented in this encounter Plan of Treatment Not on file documented as of this encounter Visit Diagnoses Diagnosis Solitary bone cyst of hand, left documented in this encounter Care Teams Police Sergeant Precinct Relationship Specialty Start Date End Date Anum Perez APRN PCP - General Family Medicine 02/06/20 documented as of this encounter
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
--- OUTSIDE RECORDS SUMMARY | 2024-03-17 12:48 | XMS_ITS | Encounter Summary ---
Author Organization [facility] [place] [address] Care Team Providers Care Boilermaker Industrial Boilers Name Role Phone Anum Perez APRN Primary Care Provider [phone] Encounter Details Date Type Department Care Team [...] on filedocumented in this encounter Care Teams Boilermaker Industrial Boilers Relationship Specialty Start Date End Date Anum Perez APRN PCP - General Family Medicine 02/06/20 documented as of this encounter
--- OUTSIDE RECORDS SUMMARY | 2024-03-17 12:48 | XMS_ITS | Encounter Summary ---
[place] [address] Care Team Providers Care Hands Assembler Name Role Phone Anum Perez APRN Primary Care Provider [phone] Reason for Referral * Diagnostic Test (Routine) - Closed Specialty Diagnoses / Procedures Referred By Contac t Referred To Contact Radiology Diagnoses Other chest pain Procedures CT Chest wo Contrast (Generic) Chris Rudolph MD [facility] [place] [address] [facility] [place] [address] Referral ID Status Reason Start Date Expiration Date V isits Requested Visits Authorized [id number] Closed Specialty Service Requested 02/19/2020 08/19/2021 1 1 Reason for Visit * Diagnostic Test (Routine) - Closed Specialty Diagnoses / Procedures Referred By Contac t Referred To Contact Radiology Diagnoses Other chest pain Procedures CT Chest wo Contrast (Generic) Chris Rudolph MD [facility] [place] [address] [facility] [place] [address] Referral ID Status Reason Start Date Expiration Date V isits Requested Visits Authorized [id number] Closed Specialty Service Requested 02/19/2020 08/19/2021 1 1 Encounter Details Date Type Department Care Team (Latest Contact Info) Description 02/26/2020 8:18 AM EST - 02/26/2020 11:59 PM EST Hospital [place] [address] Chris Rudolph MD [facility] [place] [address] Other chest pain Discharge Disposition: Home Social [...] pain documented in this encounter Care Teams Hands Assembler Relationship Specialty Start Date End Date Anum Perez APRN PCP - General Family Medicine 02/06/20 documented as of this encounter
--- OUTSIDE RECORDS SUMMARY | 2024-03-17 12:48 | XMS_ITS | Encounter Summary ---
Author Organization [facility] [place] [address] Care Team Providers Care Paper Finisher Name Role Phone Anum Perez APRN Primary Care Provider [phone] Reason for Visit * Reason Comments Follow Up Fracture Encounter Details Date Type Department Care Team (Late st Contact Info) Description 01/20/2022 2:15 PM EST Office Visit [facility]ics at [facility] [place] [address] Pain in left wrist Social History Tobacco [...] forearm documented in this encounter Care Teams Paper Finisher Relationship Specialty Start Date End Date Anum Perez APRN PCP - General Family Medicine 02/06/20 documented as of this encounter
--- OUTSIDE RECORDS SUMMARY | 2024-03-17 12:48 | XMS_ITS | Encounter Summary ---
Author Organization [facility] [address] Care Team Providers Care Water Server Name Role Phone Anum Perez APRN Primary Care Provider [phone] Encounter Details Date Type Department Care Team [...] on filedocumented in this encounter Care Teams Water Server Relationship Specialty Start Date End Date Anum Perez APRN PCP - General Family Medicine 02/06/20 documented as of this encounter
--- OUTSIDE RECORDS SUMMARY | 2024-03-17 12:48 | XMS_ITS | Encounter Summary ---
Author Organization [facility] Address [facility] [place] [address] Care Team Providers Care Fruit Vendor Name Role Phone Anum Perez APRN Primary Care Provider [phone] Reason for Visit * Occupational Therapy (Routine) - Closed Specialty Diagnoses / Procedures Referred By Trina jha Referred To Contact Occupational Therapy Diagnoses Solitary bone cyst of hand, right Eran Schmid MD [facility] [place] [address] [facility] [address] [place] [address] Referral ID Status Reason Start Date Expiration Date V isits Requested Visits Authorized [id number] Closed Evaluate and Treat 02/24/2022 02/24/2023 12 12 Encounter Details Date Type Department Care Team (Late st Contact Info) Description 02/24/2022 4:00 PM EST Office [place] [address] Stephanie Cardozo OT Solitary bone cyst of [...] Vocational status: unclear- reports he has a edi programmer analyst that assists in his care Avocational Activities: Did not reveal Pain: (Assessed using the Visual Analog Pain Scale) At Rest: 04/24 With Activity: -05/22 Treatment Today: Therex: Strength/Endurance/ROM (37097) 15 min Educated patient in etiology and biomechanics as related to patient's symptoms Instructed in active wrist ROM in all planes of motion as home program 3x/day Refrain from any resistance tasks until motion is recovered He is on board with local therapy; names at [facility] and [facility] provided today. He will contact for follow up Range of Motion Exercises: digit ext/flexion and wrist ROM in all planes of motion Provided with referral and local contact CLINICAL DECISION MAKING: Da Lewis is able to independently verbalize and [...] left documented in this encounter Care Teams Fruit Vendor Relationship Specialty Start Date End Date Anum Perez APRN PCP - General Family Medicine 02/06/20 documented as of this encounter
--- OUTSIDE RECORDS SUMMARY | 2024-03-17 12:48 | XMS_ITS | Encounter Summary ---
Author Organization [facility] [place] [address] Care Team Providers Care Gyroscope Technician Name Role Phone Anum Perez APRN Primary Care Provider [phone] Reason for Visit * Reason Comments Follow-up Solitary bone cyst o f hand, left (PT did not help) Encounter Details Date Type Department Care Team (Late st Contact Info) Description 06/16/2022 11:00 AM EDT Office [place] [address] Eran Schmid MD [facility] DR OR[place] [address] Solitary bone cyst of hand, right Social [...] 6-month follow-up x-ray of the left wrist. Eran Schmid MD, MPH Department of Orthopaedic [...] who have questions please contact the health doggy daycare activities director that requested your imaging first. ? Electronically signed by: Petra Jean-Baptiste MD, [facility] ([phone]), at 06/16/2022 3:09 PM Narrative 06/16/2022 3:09 [...] patients who have questions please contactthe health doggy daycare activities director that requested your imaging first. Electronically signed by: Petra Jean-Baptiste MD, [facility]([phone]), at 06/16/2022 3:09 PM Eran Schmid MD IMG DX ORDERABLES documented in this encounter Visit Diagnoses Diagnosis Solitary bone cyst of hand, right Solitary bone cyst of hand, right documented in this encounter Care Teams Gyroscope Technician Relationship Specialty Start Date End Date Anum Perez, SABAS PCP - General Family Medicine 02/06/20 documented as of this encounter
--- OUTSIDE RECORDS SUMMARY | 2024-03-17 12:48 | XMS_ITS | Encounter Summary ---
Author Organization [facility] [place] [address] Care Team Providers Care Animal Husbandry Teacher Name Role Phone Bharath Manzano MD Primary Care Provider [phone] Encounter Details Date Type Department Care Team (Late st Contact Info) Description 10/31/2018 Ancillary Procedure Radiology Library at [facility] [place] [address] Anum Perez, SABAS [address] [place], [place] [id number] Social History Tobacco Use Types Packs/Day Years [...] DX Spine (10/31/2018 12:00 AM EDT) Narrative [facility] - 02/07/2020 9:26 AM EST This exam is auto-finalizing. It's purpose is for storage only. Anum Perez APRN IMG FILM LIBRARY ORD ERABLES [facility] [place], [place] documented in this encounter Visit Diagnoses Not on filedocumented in this encounter Care Teams Animal Husbandry Teacher Relationship Specialty Start Date End Date Bharath Manzano MD [address] [place] [address] [place], [place] [id number] PCP - General 02/04/10 02/05/20 documented as of this encounter
--- OUTSIDE RECORDS SUMMARY | 2024-03-17 12:48 | XMS_ITS | Encounter Summary ---
Author Organization [facility] [place] [address] Care Team Providers Care Ems Coordinator Name Role Phone Anum Perez APRN Primary Care Provider Reason for Visit * Reason Comments Follow Up Fracture Pain in left wrist Encounter Details Date Type Department Care Team (Late st Contact Info) Description 02/24/2022 2:00 PM EST Office Visit Orthopaedics at [facility] [place] [address] Pain in left wrist Social History Tobacco Use Types Packs/Day Years Used Date Smoking Tobacco: Never Smokeless Tobacco: Never Sex and Gender Information Value Date Recorded Sex Assigned at Not on file Gender Identity Not on file Sexual Orientation Not on file documented as of this encounter Progress Notes * Aggie Chaudhary - 02/24/2022 2:00 PM EST Da Ramireztyra presents to the clinic for a cast [...] forearm documented in this encounter Care Teams Ems Coordinator Relationship Specialty Start Date End Date Anum Perez APRN PCP - General Family Medicine 02/06/20 documented as of this encounter
--- OUTSIDE RECORDS SUMMARY | 2024-03-17 12:48 | XMS_ITS | Encounter Summary ---
Author Organization [facility] [place] [address] Care Team Providers Care Title I Teacher Name Role Phone Anum Perez APRN Primary Care Provider [phone] Encounter Details Date Type Department Care Team [...] on filedocumented in this encounter Care Teams Title I Teacher Relationship Specialty Start Date End Date Anum Perez APRN PCP - General Family Medicine 02/06/20 documented as of this encounter
--- OUTSIDE RECORDS SUMMARY | 2024-03-17 12:48 | XMS_ITS | Encounter Summary ---
Author Organization [facility] Address [facility] [place] [address] Care Team Providers Care Outer Diameter Grinder Tool Name Role Phone Anum Perez APRN Primary Care Provider [phone] Encounter Details Date Type Department Care Team (Latest Contact Info) Description 02/24/2022 2:10 PM EST - 02/24/2022 11:59 PM EST Hospital Encounter XRay at [address] [place] [address] Pain in left wrist Discharge Disposition: Home [...] who have questions please contact the health care transition manager that requested your imaging first. ? Narrative [...] patients who have questions please contactthe health care transition manager that requested your imaging first. Eran Schmid MD IMG DX ORDERABLES documented in this encounter Visit Diagnoses Diagnosis Pain in left wrist Pain in joint, forearm documented in this encounter Care Teams Outer Diameter Grinder Tool Relationship Specialty Start Date End Date Anum Perez APRN PCP - General Family Medicine 02/06/20 documented as of this encounter
--- OUTSIDE RECORDS SUMMARY | 2024-03-17 12:48 | XMS_ITS | Encounter Summary ---
Author Organization [facility] [place] [address] Care Team Providers Care Journeyman Wireman Name Role Phone Anum Perez APRN Primary Care Provider [phone] Encounter Details Date Type Department Care Team (Late st Contact Info) Description 12/01/2021 Ancillary Procedure Radiology Library at [facility] [place] [address] Eran Schmid MD [facility] [place] [address] Social History Tobacco Use Types Packs/Day Years [...] MR Wrist (12/01/2021 12:00 AM EDT) Narrative [facility] - 01/07/2022 3:45 PM EDT This exam is auto-finalizing. It's purpose is for storage only. Eran Schmid MD IMG FILM LIBRARY ORD ERABLES [facility] [place] documented in this encounter Visit Diagnoses Not on filedocumented in this encounter Care Teams Journeyman Wireman Relationship Specialty Start Date End Date Anum Perez APRN PCP - General Family Medicine 02/06/20 documented as of this encounter
--- OUTSIDE RECORDS SUMMARY | 2024-03-17 12:48 | XMS_ITS | Encounter Summary ---
Author Organization [facility] Address [facility] Abdulaziz [facility] [place] [place] [address] Care Team Providers Care Air Quality Manager Name Role Phone Anum Perez APRN Primary Care Provider [phone] Reason for Referral * Psychiatric (Routine) - Closed Specialty Diagnoses / Procedures Referred By Trina jha Referred To Contact Psychiatry Diagnoses Forgetfulness Procedures PRO NEUROBEHAVIORAL STATUS EXAM, FIRST HOUR PRO NEUROPSYCHOLOGICAL TEST EVAL PHYS/QHP 1ST HOUR PRO NEUROPSYCHOLOGICAL TEST EVAL PHYS/QHP EA ADDL HR TC PSYCL/NRPSYCL INTEGRITY CONSULTANT 2+ TEST 1ST 30 MIN TC PSYCL/NRPSYCL INTEGRITY CONSULTANT 2+ TEST EA ADDL 30 MIN Anum Perez APRN [address] [place] [address] Lb Enamorado, PhD [facility] [place] [address] Referral ID Status Reason Start Date Expiration Date V isits Requested Visits Authorized [id number] Closed Consult, Test & Treat PCP Updated and/or Approved 01/22/2022 02/24/2024 1 1 Encounter Details Date Type Department Care Team (Late st Contact Info) Description 01/22/2022 Transcribe Orders eDH Incoming Referrals [phone] Anum Perez APRN [address] [place], [place] [id number] Forgetfulness Social History Tobacco Use Types Packs/Day [...] symptoms documented in this encounter Care Teams Air Quality Manager Relationship Specialty Start Date End Date Anum Perez APRN PCP - General Family Medicine 02/06/20 documented as of this encounter
--- OUTSIDE RECORDS SUMMARY | 2024-03-17 12:48 | XMS_ITS | Encounter Summary ---
Author Organization [facility] [place] [address] Care Team Providers Care Television Production Technician Name Role Phone Anum Perez APRN Primary Care Provider [phone] Reason for Visit * Reason Comments Follow-up Encounter Details Date Type Department Care Team (Late st Contact Info) Description 02/26/2020 9:30 AM EST Office Visit Thoracic Surgery at [facility] [place] [address] Chris Rudolph MD [facility] [place] [address] Mid sternal chest pain Social History Tobacco [...] Outpatient Consultation Note MD Christopher Carrillo PA-C [place], [place] [address] Today, 02/26/2020, we saw Mr. Da Lewis in follow-up regarding sternal pain. He was last seen on 02/19/2020 and at that time plan was to obtain CT Chest I-, obtain records from [facility] in 2019, try taking NSAIDs and acetaminophen, [...] bilaterally. Tenderness to palpation of sternum approximate prison down. His heart has a regular rate [...] of Management: 1. Will obtain records from [facility] in 2019 for comparison 2. Continue to [...] any time DAIN Haley 02/26/2020 Thoracic Surgery [facility] * Chris Rudolph MD - 02/26/2020 9:30 [...] pain documented in this encounter Care Teams Television Production Technician Relationship Specialty Start Date End Date Anum Perez, SABAS PCP - General Family Medicine 02/06/20 documented as of this encounter
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
--- OUTSIDE RECORDS SUMMARY | 2024-03-17 12:48 | XMS_ITS | Encounter Summary ---
Author Organization [facility] [place] [address] Care Team Providers Care Splicing Supervisor Name Role Phone Bharath Manzano MD Primary Care Provider [phone] Encounter Details Date Type Department Care Team (Late st Contact Info) Description 04/12/2017 Ancillary Procedure Radiology Library at [facility] [place] [address] Chris Rudolph MD [facility] [address] [place] [address] Social History Tobacco Use Types Packs/Day Years [...] MR Head (04/12/2017 12:00 AM EST) Narrative [facility] - 02/23/2020 7:24 PM EST This exam is auto-finalizing. It's purpose is for storage only. Chris Rudolph MD IMG FILM LIBRARY ORDERABLES [facility] [place] documented in this encounter Visit Diagnoses Not on filedocumented in this encounter Care Teams Splicing Supervisor Relationship Specialty Start Date End Date Bharath Manzano MD [address] [place] [address] PCP - General 02/04/10 02/05/20 documented as of this encounter
--- OUTSIDE RECORDS SUMMARY | 2024-03-17 12:48 | XMS_ITS | Encounter Summary ---
Author Organization [facility] [place] [address] Care Team Providers Care Acoustical Logging Engineer Name Role Phone Anum Perez APRN Primary Care Provider [phone] Reason for Visit * Reason Comments Establish Care LT WRIST EVAL AND IN JECTION(QUDSI) radiocarpal inj * Consultation (Routine) - Closed Specialty Diagnoses / Procedures Referred By Contac t Referred To Contact Orthopaedics Diagnoses LT WRIST PAIN Eran Schmid MD [facility] ORTHOPAEDIC [place] [address] Talha Kimball MD [facility] ORTHOPAEDIC [place] [address] Referral ID Status Reason Start Date Expiration Date V isits Requested Visits Authorized [id number] Closed Consult, Test & Treat 06/16/2022 06/16/2023 1 1 Encounter Details Date Type Department Care Team (Late st Contact Info) Description 07/24/2022 10:00 AM EDT Office Visit Orthopaedics at [place] [phone] Talha Kimball MD [facility] ORTHOPAEDIC [place] [address] Pain in left wrist; Ganglion cyst of [...] Wrist/Hand Indication: Pain and limited function. Equipment: Gradible (formerly gradsavers) with a 4-20 MHz linear transducer. All [...] in the interim. Talha Kimball MD Sports Fuel OperatorVegetable Loader Machine Operator of Orthopedics [facility] The note was created using dictation, [...] encounter documented in this encounter Care Teams Acoustical Logging Engineer Relationship Specialty Start Date End Date Anum Perez APRN PCP - General Family Medicine 02/06/20 documented as of this encounter
--- OUTSIDE RECORDS SUMMARY | 2024-03-17 12:48 | XMS_ITS | Encounter Summary ---
Author Organization [facility] [place] [address] Care Team Providers Care Handle Rounder Operator Name Role Phone Anum Perez APRN Primary Care Provider [phone] Encounter Details Date Type Department Care Team (Late st Contact Info) Description 02/17/2022 Orders Only [place] [address] Eran Schmid MD [facility] [place] [address] Pain in left wrist Social History Tobacco [...] who have questions please contact the health outdoor emergency care technician that requested your imaging first. ? Electronically signed by: SHEREE MARQUEZ MD, [facility] ([phone]), at 02/24/2022 4:15 PM Narrative 02/24/2022 4:15 [...] patients who have questions please contactthe health outdoor emergency care technician that requested your imaging first. Electronically signed by: SHEREE MARQUEZ MD, [facility]([phone]), at 02/24/2022 4:15 PM Eran Schmid MD IMG DX ORDERABLES documented in this encounter Visit Diagnoses Diagnosis Pain in left wrist Pain in joint, forearm Pain in left wrist Pain in joint, forearm documented in this encounter Care Teams Handle Rounder Operator Relationship Specialty Start Date End Date Anum Perez APRN PCP - General Family Medicine 02/06/20 documented as of this encounter
--- OUTSIDE RECORDS SUMMARY | 2024-03-17 12:48 | XMS_ITS | Encounter Summary ---
Author Organization [facility] [place] [address] Care Team Providers Care Aadc Plans Staff Officer Name Role Phone Bharath Manzano MD Primary Care Provider [phone] Encounter Details Date Type Department Care Team (Late st Contact Info) Description 06/13/2018 Ancillary Procedure Radiology Library at [facility] [place] [address] Anum Perez, SABAS [address] [place], [place] [id number] Social History Tobacco Use Types Packs/Day Years [...] Chest (06/13/2018 12:00 AM EDT) Narrative [facility] - 02/07/2020 9:23 AM EST This exam is auto-finalizing. It's purpose is for storage only. Anum Perez APRN IMG FILM LIBRARY ORD ERABLES [facility] [place], [place] documented in this encounter Visit Diagnoses Not on filedocumented in this encounter Care Teams Aadc Plans Staff Officer Relationship Specialty Start Date End Date Bharath Manzano MD [address] [place] [address] [place], [place] [id number] PCP - General 02/04/10 02/05/20 documented as of this encounter
--- OUTSIDE RECORDS SUMMARY | 2024-03-17 12:48 | XMS_ITS | Encounter Summary ---
Author Organization [facility] [place] [address] Care Team Providers Care Veneer Splicer Name Role Phone Anum Perez APRN Primary Care Provider [phone] Encounter Details Date Type Department Care Team (Late st Contact Info) Description 09/10/2021 Ancillary Procedure Radiology Library at [facility] [place] [address] Eran Schmid MD [facility] [place] [address] Social History Tobacco Use Types Packs/Day Years [...] DX Wrist (09/10/2021 12:00 AM EDT) Narrative [facility] - 01/07/2022 3:45 PM EDT This exam is auto-finalizing. It's purpose is for storage only. Eran Schmid MD IMG FILM LIBRARY ORD ERABLES [facility] [place] documented in this encounter Visit Diagnoses Not on filedocumented in this encounter Care Teams Veneer Splicer Relationship Specialty Start Date End Date Anum Perez APRN PCP - General Family Medicine 02/06/20 documented as of this encounter
--- OUTSIDE RECORDS SUMMARY | 2024-03-17 12:48 | XMS_ITS | Encounter Summary ---
Author Organization [facility] [place] [address] Care Team Providers Care Fagot Maker Name Role Phone Anum Perez APRN Primary Care Provider Reason for Referral * Occupational Therapy (Routine) - Closed Specialty Diagnoses / Procedures Referred By Trina jha Referred To Contact Occupational Therapy Diagnoses Solitary bone cyst of hand, right Eran Schmid MD [facility] [place] [address] [facility] [address] [place] [address] Referral ID Status Reason Start Date Expiration Date V isits Requested Visits Authorized [id number] Closed Evaluate and Treat 02/24/2022 02/24/2023 12 12 Reason for Visit * Reason Comments Follow-up Left wrist cyst Encounter Details Date Type Department Care Team (Late st Contact Info) Description 02/24/2022 3:00 PM EST Office [place] [address] Eran Schmid MD [facility] [place] [address] Solitary bone cyst of hand, [...] ??? Follow-up Left wrist cyst HPI: Da Lweis is a 31 y.o. male patient who [...] note supplied by the resident or physician bevel polisher with whom I saw the patient, and [...] left documented in this encounter Care Teams Fagot Maker Relationship Specialty Start Date End Date Anum Perez APRN PCP - General Family Medicine 02/06/20 documented as of this encounter
--- OUTSIDE RECORDS SUMMARY | 2024-03-17 12:48 | XMS_ITS | Encounter Summary ---
Author Organization [facility] [place] [address] Care Team Providers Care Dinkey Dispatcher Name Role Phone Anum Perez APRN Primary Care Provider [phone] Encounter Details Date Type Department Care Team [...] on filedocumented in this encounter Care Teams Dinkey Dispatcher Relationship Specialty Start Date End Date Anum Perez APRN PCP - General Family Medicine 02/06/20 documented as of this encounter
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
--- OUTSIDE RECORDS SUMMARY | 2024-03-17 12:48 | XMS_ITS | Encounter Summary ---
Author Organization [facility] [place] [address] Care Team Providers Care Bomb Squad Commander Name Role Phone Anum Perez APRN Primary Care Provider [phone] Encounter Details Date Type Department Care Team (Late st Contact Info) Description 12/23/2022 Orders [place] [address] Eran Schmid MD [facility] [place] [address] Pain in left wrist Social History Tobacco [...] have questions please contact the health career development specialist that requested your imaging first. ? Electronically signed by: Skyla Zamarripa MD, [facility] ([phone]), at 12/25/2022 11:36 AM Narrative 12/25/2022 11:36 [...] who have questions please contactthe health career development specialist that requested your imaging first. Electronically signed by: Skyla Zamarripa MD, [facility]([phone]), at 12/25/2022 11:36 AM Eran Schmid MD IMG DX ORDERABLES documented in this encounter Visit Diagnoses Diagnosis Pain in left wrist Pain in joint, forearm Pain in left wrist Pain in joint, forearm documented in this encounter Care Teams Bomb Squad Commander Relationship Specialty Start Date End Date nAum Perez APRN PCP - General Family Medicine 02/06/20 documented as of this encounter
== END 2024-03-17 13:04 ==
LOC: DI 12:45
PROVIDERS: PCP Nurse Practitioner Family; Visit Provider Nurse Practitioner Family
DX: M54.6 Pain in thoracic spine (principal)
CPT/HCPCS: 72072

== ENCOUNTER 2024-05-05 00:38 | Outpatient (CLI) | payer MEDICAID, SELFPAY ==
[2024-05-05 13:42] LABS: Hemoglobin A1C 5.5 % (<5.7)
[2024-05-05 13:49] LABS: Calculated LDL 96 mg/dL (<100); Cholesterol 175 mg/dL (<200); HDL Cholesterol 46 mg/dL (40-60); Triglyceride 166 mg/dL (<150)
== END 2024-05-05 00:39 | disposition home or self-care (01) ==
LOC: LBO 00:38
PROVIDERS: PCP Nurse Practitioner Family; Referring Provider Nurse Practitioner Family; Visit Provider Nurse Practitioner Family
DX: E66.9 Obesity, unspecified (principal); Z00.00 Encounter for general adult medical examination without abnormal findings
CPT/HCPCS: 36415; 80061; 83036

== ENCOUNTER 2024-10-04 15:50 | Outpatient (CLI) | payer MEDICAID, SELFPAY ==
--- NOTE | 2024-10-04 | DI.RAD_ITS ---
Exam(s) XR TIB/FIB LT EXAM: XR TIB/FIB LT CLINICAL HISTORY: LEFT LEG PAIN, M79.605. TECHNIQUE: 2D digital imaging was performed. Two views. COMPARISON: No exams were available for comparison FINDINGS: BONES: No acute fracture is present. No bony destructive lesion is seen. Visualized portion of knee and ankle joints are unremarkable. SOFT TISSUE: Normal. IMPRESSION: Unremarkable radiographs of the left tibia and fibula. The preliminary [facility] report was reviewed. DATA REPOSITORY: RADIATION DOSE DELIVERED:
--- NOTE | 2024-10-04 17:04 | DI.[facility]_ITS ---
PROCEDURE INFORMATION: Exam: XR Left Tibia and Fibula Exam date and time: 10/04/2024 4:09 PM Age: 34 years old Clinical indication: Lower leg; Left leg pain TECHNIQUE: Imaging protocol: Radiologic exam of the left tibia and fibula. Views: 2 views. COMPARISON: CR XR KNEE LT 3V AP,LAT,EDWAR 10/07/2021 1:27 PM FINDINGS: Bones/joints: Normal. Soft tissues: Normal. IMPRESSION: No acute findings. Dictated and Authenticated by: Dinh Dela Cruz MD. Orderin Gunjan Reed MD
== END 2024-10-04 16:10 ==
PROVIDERS: PCP Nurse Practitioner Family; Visit Provider Physician Assistant Medical
DX: M79.605 Pain in left leg (principal)
CPT/HCPCS: 73590